=== PATIENT | female | born 1960 | race Caucasian/White ===

== ENCOUNTER → 2017-02-01 | Outpatient (CLI) | payer OTHER ==
[2017-02-01 17:46] LABS: ABSOLUTE BASOPHILS # (AUTO) 0.1 10^3/uL (0.0-0.2); ABSOLUTE EOSINOPHILS # (AUTO) 0.3 10^3/uL (0.0-0.6); ABSOLUTE LYMPHOCYTES (AUTO) 1.8 10^3/uL (0.5-4.7); ABSOLUTE MONOCYTES (AUTO) 0.8 10^3/uL (0.1-1.4); ABSOLUTE NEUT (AUTO) 6.4 10^3/uL (1.7-8.2); BASOPHILS % (AUTO) 0.6 % (0-2); EOSINOPHILS % (AUTO) 3.3 % (0-6); HEMATOCRIT 43.7 % (36.0-47.0); HEMOGLOBIN 14.9 g/dL (12.0-15.5); LYMPHOCYTES % (AUTO) 18.8 % (13-45); MEAN CORPUSCULAR HEMOGLOBIN 29.5 pg (27.0-33.4); MEAN CORPUSCULAR HGB CONC 34.1 g/dL (32.0-36.0); MEAN CORPUSCULAR VOLUME 87 fl (80-97); MONOCYTES % (AUTO) 8.9 % (3-13); RED BLOOD COUNT 5.05 10^6/uL (3.72-5.28); RED CELL DISTRIBUTION WIDTH 13.4 % (11.5-14.0); SEGMENTED NEUTROPHILS % (AUTO) 68.4 % (42-78); WHITE BLOOD COUNT 9.3 10^3/uL (4.0-10.5)
[2017-02-01 18:09] LABS: ALANINE AMINOTRANSFERASE 55 U/L (9-52); ALBUMIN 3.9 g/dL (3.5-5.0); ALKALINE PHOSPHATASE 73 U/L (38-126); ANION GAP 11 (5-19); ASPARTATE AMINO TRANSFERASE 36 U/L (14-36); BILIRUBIN,DIRECT 0.3 mg/dL (0.0-0.4); BILIRUBIN,TOTAL 0.6 mg/dL (0.2-1.3); BLOOD UREA NITROGEN 15 mg/dL (7-20); CALCIUM 9.5 mg/dL (8.4-10.2); CARBON DIOXIDE 28 mmol/L (22-30); CHLORIDE 100 mmol/L (98-107); CREATININE RESULT 0.76 mg/dL (0.52-1.25); GLUCOSE 103 mg/dL (75-110); POTASSIUM 4.5 mmol/L (3.6-5.0)
== END ==
LOC: OD 16:47
PROVIDERS: ATTEND Nurse Practitioner Acute Care
DX: R10.32 Left lower quadrant pain (principal)
CPT/HCPCS: 36415; 80053; 85025

== ENCOUNTER 2017-02-11 21:35 | Emergency (ER) | payer OTHER ==
[2017-02-12] MEDS ORDERED: ASPIRIN 81 MG TABLET, CHEWABLE PO ONE (01:14)
--- NOTE | 2017-02-12 01:27 | ER Document Report ---
ED Cardiac - General TRAVEL OUTSIDE OF THE [place] IN LAST 30 DAYS: No <AARON BOLTON - Last Filed: 02/12/17 07:45> <CAM FRASER - Last Filed: 02/12/17 08:16> - General Chief Complaint: Chest Pain Stated Complaint: CHEST PAIN Time Seen by Provider: 02/12/17 01:15 Notes: Patient is a 56-year-old female who comes emergency department for chief complaint of pain in her left neck, left upper back, left shoulder, and left chest for the past 2 days. She states the pain is sharp, intermittently worse, worse with movement. She denies injury. She states she has been taking ibuprofen with some relief but not resolution. She denies shortness of breath, nausea/vomiting, fever, cough. Past medical history of hypertension, hyperlipidemia, and she has family medical history of [place] with both parents. She had a stress test last year which she believes was negative. (AARON BOLTON) - Related Data Allergies/Adverse Reactions: Penicillins Allergy (Severe, Verified 02/12/17 01:30) hives, anaphylaxias promethazine HCl [From Phenergan] Allergy (Verified 02/12/17 01:30) tardive dyskensia prochlorperazine edisylate [From Compazine] Adverse Reaction (Intermediate, Verified 02/12/17 01:30) tardive dyskensia Past Medical History - General Information source: Patient - Social History Smoking Status: Never Smoker Frequency of alcohol use: None Drug Abuse: None Lives with: Spouse/Significant other Family History: Reviewed & Not Pertinent - Past Medical History Cardiac Medical History: Reports: Hx Coronary Artery Disease, Hx Hypercholesterolemia, Hx Hypertension Pulmonary Medical History: Denies: Hx Tuberculosis Neurological Medical History: Denies: Hx Seizures Renal/ Medical History: Reports: Hx Ovarian Cysts. Denies: Hx Peritoneal Dialysis GI Medical History: Reports: Hx Gastroesophageal Reflux Disease, Hx Irritable Bowel Musculoskeltal Medical History: Reports Hx Arthritis, Reports Hx Musculoskeletal Deformity Psychiatric Medical History: Reports: Hx Depression Traumatic Medical History: Reports: Hx Fractures Past Surgical History: Reports: Hx Appendectomy, Hx Section, Other - Incisional hernia repair with mesh 20 years ago. Denies: Hx Coronary Artery Bypass Graft, Hx Coronary Stent - Immunizations Immunizations up to date: Yes Hx Diphtheria, Pertussis, Tetanus Vaccination: Yes <AARON BOLTON Last Filed: 02/12/17 07:45> Review of Systems - Review of Systems Constitutional: No symptoms reported EENT: No symptoms reported Cardiovascular: See HPI Respiratory: No symptoms reported Gastrointestinal: No symptoms reported Genitourinary: No symptoms reported Female Genitourinary: No symptoms reported Musculoskeletal: See HPI Skin: No symptoms reported Hematologic/Lymphatic: No symptoms reported Neurological/Psychological: No symptoms reported <AARON BOLTON Last Filed: 02/12/17 07:45> Physical Exam - Vital signs Interpretation: Normal - General General appearance: Appears well In distress: None - HEENT Head: Normocephalic, Atraumatic Eyes: Normal Pupils: PERRL - Respiratory Respiratory status: No respiratory distress Chest status: Tender - some left pectoral tenderness with tenderness over the left axillary area extending up into the shoulder and also into the left upper back/neck area. Breath sounds: Normal. No: Decreased air movement, Wheezing Chest palpation: Normal - Cardiovascular Rhythm: Regular. No: Tachycardia Heart sounds: Normal auscultation, S1 appreciated, S2 appreciated Murmur: No - Abdominal Inspection: Normal Distension: No distension Bowel sounds: Normal Tenderness: Nontender. No: Tender, Guarding Organomegaly: No organomegaly - Back Back: No: Deformity/step-off, Vertebra tenderness - Extremities General upper extremity: Normal inspection, Nontender, Normal ROM, Normal strength General lower extremity: Normal inspection, Nontender, Normal ROM, Normal strength - Neurological Neuro grossly intact: Yes Cognition: Normal Orientation: AAOx4 [place] Coma Scale Eye Opening: Spontaneous [place] Coma Scale Verbal: Oriented [place] Coma Scale Motor: Obeys Commands [place] Coma Scale Total: 15 Speech: Normal Motor strength normal: LUE, RUE, LLE, RLE Sensory: Normal - Psychological Associated symptoms: Normal affect, Normal mood - Skin Skin Temperature: Warm Skin Moisture: Dry Skin Color: Normal <AARON BOLTON Last Filed: 02/12/17 07:45> Course - Laboratory Result Diagrams: 02/12/17 00:19 02/12/17 00:19 <AARON BOLTON Last Filed: 02/12/17 07:45> - Laboratory Result Diagrams: 02/12/17 00:19 02/12/17 00:19 <CAM FRASER - Last Filed: 02/12/17 08:16> - Re-evaluation Re-evalutation: 02/12/17 02:00 Stress test from last year with recommendations of low threshold for cardiac catheterization with close cardiac follow-up. Patient states that about 7:30 tonight pain came back and has become constant. Pain was intermittent until then. No shortness of breath. Patient is not tachycardic, no reported risk factors for PE. Improved with one SL nitroglycerine down to 1-2/5. Patient does have some musculoskeletal pain, but risk factors and symptoms are concerning. CBC unremarkable, chest x-ray unremarkable, EKG shows sinus rhythm with no T- wave inversions in consecutive leads, shows left axis deviation. CK is slightly elevated, troponin is significantly elevated at 1.26. Significantly above our cutoff level. Patient already given aspirin, giving Lovenox. Patient became nervous (shaky and tachycardic) after I informed her of her elevated troponin, given ativan, this worked quickly and she became calm and relaxed again. Discussed with Dr. Laboy. 02/12/17 02:40 Initially called [facility], no beds currently, called [facility], pending call back. Patient reporting chest pain again, given two more SL nitroglycerine. Pain resolved this time. 02/12/17 03:[address] Conroy, hospitalist, recommends I speak with Cardiology. Spoke with Michelle Norton PA-C, patient will be accepted to Cardiology, accepting is Dr. Causey. 02/12/17 05:14 Patient resting calmly, no chest pain, tachycardia and hypertension resolved. Pending transfer. 02/12/17 06:35 Patient having chest pain again, appears to be in pain, placing on nitroglycerin drip, giving morphine, giving metoprolol, will repeat EKG and update [facility]. Discussed with Dr. Fraser. 02/12/17 07:00 [facility] still has no beds, spoke with Alie Norton again and updated on status. Called [facility] to help patient get transferred faster. Patient states agreement with this. Patient now denies chest pain on nitroglycerin drip. 02/12/17 07:36 Patient is now confirmed for [facility] and is going to the lab[facility] or [facility] first. Called [facility] and cancelled transfer there. Patient happy with this. (AARON BOLTON) 02/12/17 08:15 Patient reevaluated is stable at this time pain-free (CAM FRASER) - Vital Signs Vital signs: Temp Pulse Resp BP Pulse Ox 98.9 F 99 26 H 160/105 H 100 02/12/17 07:16 02/11/17 22:06 02/12/17 07:21 02/12/17 07:21 02/12/17 07:21 - Laboratory Laboratory results interpreted by me: 02/12/17 02/12/17 00:19 00:19 AST 44 H ALT 54 H Creatine Kinase 139 H CK-MB (CK-2) 5.28 H Critical Care Note - Critical Care Note Total time excluding time spent on procedures (mins): 40 - chest pain, NSTEMI <AARON BOLTON - Last Filed: 02/12/17 07:45> <CAM FRASER - Last Filed: 02/12/17 08:16> - Critical Care Note Comments: Please allow 40 minutes of critical care time for evaluation and treatment of patient with an STEMI requiring anticoagulation with aspirin, Lovenox, treatment of pain using sublingual nitroglycerin, nitroglycerin drip, multiple re-evaluations, consultation and transfer to tertiary care center. (AARON BOLTON) Discharge <AARON BOLTON - Last Filed: 02/12/17 07:45> <CAM FRASER - Last Filed: 02/12/17 08:16> - Discharge Clinical Impression: NSTEMI (non-ST elevated myocardial infarction) Chest pain Qualifiers: Chest pain type: precordial chest pain Qualified Code(s): R07.2 - Precordial pain Condition: Stable Disposition: [facility]
[2017-02-12 01:35] LABS: ABSOLUTE EOSINOPHILS # (AUTO) 0.3 10^3/uL (0.0-0.6); ABSOLUTE LYMPHOCYTES (AUTO) 1.9 10^3/uL (0.5-4.7); ABSOLUTE MONOCYTES (AUTO) 0.7 10^3/uL (0.1-1.4); ABSOLUTE NEUT (AUTO) 5.1 10^3/uL (1.7-8.2); BASOPHILS % (AUTO) 0.3 % (0-2); EOSINOPHILS % (AUTO) 3.5 % (0-6); HEMATOCRIT 42.9 % (36.0-47.0); HGB HCT DIFFERENCE -0.9; LYMPHOCYTES % (AUTO) 23.5 % (13-45); MEAN CORPUSCULAR HGB CONC 32.7 g/dL (32.0-36.0); MEAN CORPUSCULAR VOLUME 89 fl (80-97); MONOCYTES % (AUTO) 8.9 % (3-13); RED BLOOD COUNT 4.85 10^6/uL (3.72-5.28); RED CELL DISTRIBUTION WIDTH 13.4 % (11.5-14.0); SEGMENTED NEUTROPHILS % (AUTO) 63.8 % (42-78)
[2017-02-12 01:48] LABS: ALANINE AMINOTRANSFERASE 54 U/L (9-52); ALBUMIN 3.8 g/dL (3.5-5.0); ALKALINE PHOSPHATASE 72 U/L (38-126); ANION GAP 10 (5-19); ASPARTATE AMINO TRANSFERASE 44 U/L (14-36); BILIRUBIN,DIRECT 0.3 mg/dL (0.0-0.4); BILIRUBIN,TOTAL 0.7 mg/dL (0.2-1.3); BLOOD UREA NITROGEN 13 mg/dL (7-20); CALCIUM 9.2 mg/dL (8.4-10.2); CARBON DIOXIDE 26 mmol/L (22-30); CHLORIDE 105 mmol/L (98-107); CREATINE KINASE 139 U/L (30-135); CREATININE RESULT 0.66 mg/dL (0.52-1.25); GLUCOSE 106 mg/dL (75-110); POTASSIUM 4.1 mmol/L (3.6-5.0); SODIUM 140.7 mmol/L (137-145)
--- NOTE | 2017-02-12 01:51 | RADIOLOGY REPORT (SQ) ---
EXAM DESCRIPTION: CHEST SINGLE VIEW COMPLETED DATE/TIME: 02/12/2017 1:34 am REASON FOR STUDY: CHEST COMPARISON: 02/02/2016. CT, 02/04/2016 EXAM PARAMETERS: NUMBER OF VIEWS: One view. TECHNIQUE: Single frontal radiographic view of the chest acquired. RADIATION DOSE: NA LIMITATIONS: None. FINDINGS: LUNGS AND PLEURA: No opacities, masses or pneumothorax. No pleural effusion. Mild interst itial markings. Moderate elevation of the right hemidiaphragm, stable. MEDIASTINUM AND HILAR STRUCTURES: No masses. Contour normal. HEART AND VASCULAR STRUCTURES: Heart normal in size. Normal vasculature. BONES: No acute findings. HARDWARE: None in the chest. OTHER: No other significant finding. IMPRESSION: No acute cardiopulmonary findings. TECHNICAL DOCUMENTATION: JOB ID: [id number]
[2017-02-12 01:54] LABS: CREATINE KINASE MB 5.28 ng/mL (<4.55)
[2017-02-12 01:58] LABS: TROPONIN I 1.24 ng/mL
[2017-02-12] MEDS ORDERED: ONDANSETRON HCL INJ/PF 4 MG/2 ML SDV ONE (02:07)
[2017-02-12] MEDS ORDERED: ONDANSETRON HCL INJ/PF 4 MG/2 ML SDV IV ONE ×2 (02:08→06:33)
[2017-02-12] MEDS: NITROGLYCERIN 0.4 MG/TAB 25 TAB/BOTTLE SL PRN ×3 (02:11→03:04)
[2017-02-12] MEDS ORDERED: ENOXAPARIN SODIUM INJ 120 MG/0.8 ML DISP.SYRIN SUBCUT SCH (02:15)
[2017-02-12] MEDS ORDERED: ENOXAPARIN SODIUM INJ 100 MG/1 ML DISP.SYRIN SUBCUT ONE (02:15)
[2017-02-12] MEDS ORDERED: ENOXAPARIN SODIUM INJ 30 MG/0.3 ML DISP.SYRIN SUBCUT ONE (02:15)
[2017-02-12] MEDS ORDERED: LORAZEPAM INJ 2 MG/1 ML VIAL IV ONE (02:18)
[2017-02-12 02:19] LABS: PROTHROMBIN TIME 12.9 SEC (11.4-15.4)
[2017-02-12 02:20] LABS: PARTIAL THROMBOPLASTIN TIME 25.7 SEC (23.5-35.8)
[2017-02-12] MEDS ORDERED: NITROGLYCERIN/D5W 250 ML IV PRN (06:31)
[2017-02-12] MEDS ORDERED: MORPHINE SULFATE 10 MG/ML INJ IV ONE (06:33)
[2017-02-12] MEDS ORDERED: METOPROLOL TARTRATE 25 MG TABLET PO ONE (06:45)
[2017-02-12 07:26] VITALS: BP 160/105
[2017-02-12] MEDS ORDERED: ENOXAPARIN SODIUM INJ 30 MG/0.3 ML DISP.SYRIN SUBCUT SCH (10:00)
[2017-02-12] MEDS ORDERED: ENOXAPARIN SODIUM INJ 100 MG/1 ML DISP.SYRIN SUBCUT SCH (10:00)
--- NOTE | 2017-02-12 10:22 | EKG REPORT ---
SEVERITY:- ABNORMAL ECG - SINUS RHYTHM LEFT VENTRICULAR HYPERTROPHY : Confirmed by: Nasreen Klein MD 12-Feb-2017 10:21:27
--- NOTE | 2017-02-12 10:22 | EKG REPORT ---
SEVERITY:- ABNORMAL ECG - SINUS TACHYCARDIA PROBABLE LEFT ATRIAL ABNORMALITY LEFT VENTRICULAR HYPERTROPHY : Confirmed by: Nasreen Klein MD 12-Feb-2017 10:21:24
== END 2017-02-12 08:20 | disposition short-term general hospital (02) ==
LOC: ER 21:35
DX: I21.4 Non-ST elevation (NSTEMI) myocardial infarction (principal); I10 Essential (primary) hypertension; I25.10 Atherosclerotic heart disease of native coronary artery without angina pectoris; M54.2 Cervicalgia; M54.89 Other dorsalgia; M25.512 Pain in left shoulder; R45.0 Nervousness; Z82.49 Family history of ischemic heart disease and other diseases of the circulatory system; Z88.0 Allergy status to penicillin; Z88.8 Allergy status to other drugs, medicaments and biological substances
CPT/HCPCS: 93005; 99291; 51701; 96365; 36415; 82553; 82550; 85025; 85610; 85730; 80053; 84484; 71010; 93010; J2270; J2060; J2405

== ENCOUNTER 2017-12-30 07:25 | Emergency (ER) | payer OTHER ==
[2017-12-30 07:58] LABS: APPEARANCE,URINE CLEAR; BILIRUBIN,URINE NEGATIVE (NEGATIVE); COLOR,URINE AMBER; GLUCOSE, URINE NEGATIVE (NEGATIVE); KETONES,URINE NEGATIVE (NEGATIVE); LEUKOCYTE ESTERASE,URINE LARGE (NEGATIVE); NITRITE,URINE POSITIVE (NEGATIVE); PROTEIN,URINE 30 mg/dL (NEGATIVE); URINE SPECIFIC GRAVITY 1.008
[2017-12-30] MEDS ORDERED: NORMAL SALINE 1000 ML 1,000 ML IV ONE (08:02)
--- NOTE | 2017-12-30 08:02 | ER Document Report ---
ED General - General Chief Complaint: Flank Pain Stated Complaint: LEFT SIDE FLANK PAIN Time Seen by Provider: 12/30/17 07:51 Notes: Patient is a 57-year-old female who presents emergency part with a chief complaint of left flank pain. Patient states that she took a bath on Sunday and morning she noted pyuria. She admits to worsening pyuria, frequency and urgency with associated nausea that has been worsening since . She denies any hematuria, fever, chills, vaginal pain or vaginal discharge. She denies any previous history of kidney stones. Primary care is with Dr. patel Past medical history significant for IBS, diverticulosis, inguinal hernia, coronary artery disease with previous SC in January 2017 on Brilinta with 2 coronary stents, hypertension, hyperlipidemia, diet-controlled diabetes, migraines, history of polynephritis as a teenager, history of low back pain. Patient in menopause Past surgical history significant for coronary cath in January 2017, appendectomy, 2 Social history: Denies any tobacco, alcohol or drug use. 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 TRAVEL OUTSIDE OF THE [place] IN LAST 30 DAYS: No - Related Data Allergies/Adverse Reactions: Penicillins Allergy (Severe, Verified 12/30/17 08:06) hives, anaphylaxias promethazine [From Phenergan] Allergy (Verified 12/30/17 08:06) promethazine HCl [From Phenergan] Allergy (Verified 12/30/17 08:06) tardive dyskensia tramadol Allergy (Verified 12/30/17 08:06) prochlorperazine edisylate [From Compazine] Adverse Reaction (Intermediate, Verified 12/30/17 08:06) tardive dyskensia Past Medical History - Social History Smoking Status: Never Smoker Family History: Reviewed & Not Pertinent - Past Medical History Cardiac Medical History: Reports: Hx Coronary Artery Disease, Hx Hypercholesterolemia, Hx Hypertension Pulmonary Medical History: Denies: Hx Tuberculosis Neurological Medical History: Denies: Hx Seizures Renal/ Medical History: Reports: Hx Ovarian Cysts. Denies: Hx Peritoneal Dialysis GI Medical History: Reports: Hx Gastroesophageal Reflux Disease, Hx Irritable Bowel Musculoskeltal Medical History: Reports Hx Arthritis, Reports Hx Musculoskeletal Deformity Psychiatric Medical History: Reports: Hx Depression Traumatic Medical History: Reports: Hx Fractures Past Surgical History: Reports: Hx Appendectomy, Hx Section, Hx Whipple - laparotomy, Other - Incisional hernia repair with mesh 20 years ago. Denies: Hx Coronary Artery Bypass Graft, Hx Coronary Stent - Immunizations Immunizations up to date: Yes Hx Diphtheria, Pertussis, Tetanus Vaccination: Yes Review of Systems - Review of Systems Constitutional: No symptoms reported Cardiovascular: No symptoms reported Respiratory: No symptoms reported Gastrointestinal: See HPI Genitourinary: See HPI Female Genitourinary: No symptoms reported Musculoskeletal: No symptoms reported -: Yes All other systems reviewed and negative Physical Exam - Vital signs Vitals: Temp Pulse Resp BP Pulse Ox 98.0 F 93 22 H 160/54 H 99 12/30/17 07:36 12/30/17 07:36 12/30/17 07:36 12/30/17 07:36 12/30/17 07:36 - Notes Notes: PHYSICAL EXAM GENERAL: Alert, interacts well. HEAD: Normocephalic, atraumatic. EYES: Pupils equal, round, and reactive to light. Extraocular movements intact. ENT: Oral mucosa moist, tongue midline. NECK: Full range of motion. Supple. Trachea midline. LUNGS: Clear to auscultation bilaterally, no wheezes, rales, or rhonchi. No respiratory distress. HEART: Regular rate and rhythm. No murmurs, gallops, or rubs. ABDOMEN: Soft, nondistended, suprapubic tenderness no guarding, rebound, or rigidity.. Bowel sounds present in all 4 quadrants. Back: Positive CVA tenderness on the left. Negative on the right. No superficial muscle tenderness to palpation. EXTREMITIES: Moves all 4 extremities spontaneously. No edema, radial and dorsalis pedis pulses 2/4 bilaterally. No cyanosis. NEUROLOGICAL: Alert and oriented x4. Normal speech. PSYCH: Normal affect, normal mood. SKIN: Warm, dry, normal turgor. No rashes or lesions noted. Course - Re-evaluation Re-evalutation: 12/30/17 09:28 Patient is a 57-year-old female is hemodynamically stable, no acute distress afebrile. CBC without significant leukocytosis, anemia. No evidence of acute renal failure. Patient clinically presents with pyelonephritis. Patient is afebrile. Will treat with antibiotics. Patient to follow-up with primary care. 12/30/17 10:25 Patient states she feels much better after IV pain medication. Will discharge home with strict return precautions. - Vital Signs Vital signs: Temp Pulse Resp BP Pulse Ox 98.0 F 93 22 H 160/54 H 99 12/30/17 07:36 12/30/17 07:36 12/30/17 07:36 12/30/17 07:36 12/30/17 07:36 - Laboratory Result Diagrams: 12/30/17 08:28 12/30/17 08:28 Laboratory results interpreted by me: 12/30/17 12/30/17 12/30/17 07:34 08:28 08:28 WBC 10.6 H Seg Neutrophils % 80.0 H Lymphocytes % 11.4 L Absolute Neutrophils 8.5 H Glucose 130 H Urine Protein 30 H Urine Blood LARGE H Urine Nitrite POSITIVE H Urine Urobilinogen 4.0 H Ur Leukocyte Esterase LARGE H Discharge - Discharge Clinical Impression: Pyelonephritis Condition: Good Disposition: HOME, SELF-CARE Additional Instructions: PYELONEPHRITIS: Your evaluation shows evidence of pyelonephritis. This is an infection in the kidney. Typical symptoms are fever, pain in the flank, pain on urination, and frequent urination. Many cases of pyelonephritis can be treated at home. Hospital care may be necessary for patients who are very ill, or elderly or . Pyelonephritis is treated with antibiotics. Be sure to take all the medication as prescribed. Drink plenty of liquids (about three quarts per day) . You may take acetaminophen for fever. You should feel significantly improved within two days. You should have a recheck of your urine in about one week to insure that the infection is gone. Return for a re-examination if your symptoms worsen in any way -- such as high fever, shaking chills, severe weakness or dizziness, severe pain, or inability to pass your urine. TORADOL INJECTION: You have been given an injection of ketorolac tromethamine (Toradol). This is an excellent, safe drug for pain control. It also has potent antiinflammatory action. You should have significant pain relief within about one hour. Toradol is not addicting and is non-sedating. It does not interfere with driving or work. Call or return if you develop itching, hives, shortness of breath, or rash. ANTIBIOTIC THERAPY: You have been given an antibiotic prescription. It's important that you take all the medication, unless instructed otherwise by your physician. Failure to complete the entire course can result in relapse of your condition. Common side effects of antibiotics include nausea, intestinal cramping, or diarrhea. Women may develop vaginal yeast infections, and babies can get yeast (thrush) in the mouth following the use of antibiotics. Contact your physician if you develop significant side effects from this medication. Allergy to this antibiotic can result in hives, wheezing, faintness, or itching. If symptoms of allergy occur, stop the medication and call the doctor. LEVOFLOXACIN: You have been given an antibacterial agent, levofloxacin (Levaquin). This medicine is not related to the penicillins, sulfas, cephalosporins, or tetracyclines. It is often given to patients who are allergic to these drugs. It has been chosen for you either because other drugs are not appropriate, or because of the nature of your problem. Levaquin should not be taken with antacids, as these can decrease its effectiveness. It can be taken without regard to meals. LEVAQUIN SHOULD NOT BE TAKEN BY CHILDREN, NURSING WOMEN, OR WOMEN. Although Levaquin is usually well-tolerated, common side effects can include nausea and diarrhea. Contact your doctor if you experience any unusual symptoms while on this medication, such as joint pain or swelling, shortness of breath, wheezing, faintness, or hives. USE OF ACETAMINOPHEN (Tylenol): Acetaminophen may be taken for pain relief or fever control. It's much safer than aspirin, offering a wider range of "safe" dosages. It is safe during . Some brand names are Tylenol, Panadol, Datril, Anacin 3, Tempra, and Liquiprin. Acetaminophen can be repeated every four hours. The following are maximum recommended dosages: >89 pounds or adults 650 mg to 900 mg Acetaminophen can be repeated every four hours. Maximum dose not to exceed 4000 mg a day. ORAL NARCOTIC MEDICATION: You have been given a prescription for pain control. This medication is a narcotic. It's best taken with food, as nausea can result if taken on an empty stomach. Don't operate machinery or drive within six hours of taking this medication. Do not combine this medicine with alcohol, or with any medication which can cause sedation (such as cold tablets or sleeping pills) unless you get permission from the physician. Narcotics tend to cause constipation. If possible, drink plenty of fluids and eat a diet high in fiber and fruits. Please be aware that prescription narcotics also have the potential for abuse. People become addicted to these medications because of the general sense of wellbeing that they induce. This feeling along with a significant reduction in tension, anxiety, and aggression provides a stimulating seductive quality to these drugs. Once your pain is under control, we encourage you to discard your unused narcotics. FOLLOW-UP CARE: If you have been referred to a physician for follow-up care, call the physician s office for an appointment as you were instructed or within the next two days. If you experience worsening or a significant change in your symptoms, notify the physician immediately or return to the Emergency Department at any time for re-evaluation. Prescriptions: Levofloxacin 750 mg PO DAILY #5 tablet Forms: Return to Work, Elevated Blood Pressure Referrals: JALEN APARICIO MD [Primary Care Provider] - Follow up in 1 week
[2017-12-30] MEDS ORDERED: LEVOFLOXACIN 750 MG/D5W RTU 750 MG/150 ML RTUPB IV ONE (08:03)
[2017-12-30 08:46] LABS: ABSOLUTE EOSINOPHILS # (AUTO) 0.2 10^3/uL (0.0-0.6); ABSOLUTE LYMPHOCYTES (AUTO) 1.2 10^3/uL (0.5-4.7); ABSOLUTE MONOCYTES (AUTO) 0.7 10^3/uL (0.1-1.4); ABSOLUTE NEUT (AUTO) 8.5 10^3/uL (1.7-8.2); BASOPHILS % (AUTO) 0.4 % (0-2); EOSINOPHILS % (AUTO) 1.4 % (0-6); HEMATOCRIT 40.6 % (36.0-47.0); HEMOGLOBIN 13.8 g/dL (12.0-15.5); LYMPHOCYTES % (AUTO) 11.4 % (13-45); MEAN CORPUSCULAR HEMOGLOBIN 29.7 pg (27.0-33.4); MEAN CORPUSCULAR VOLUME 87 fl (80-97); MONOCYTES % (AUTO) 6.8 % (3-13); PLATELET COUNT 210 10^3/uL (150-450); RED BLOOD COUNT 4.65 10^6/uL (3.72-5.28); RED CELL DISTRIBUTION WIDTH 13.6 % (11.5-14.0); TOTAL CELLS COUNTED % (AUTO) 100 %; WHITE BLOOD COUNT 10.6 10^3/uL (4.0-10.5)
[2017-12-30 09:03] LABS: ALANINE AMINOTRANSFERASE 40 U/L (9-52); ALBUMIN 3.9 g/dL (3.5-5.0); ALKALINE PHOSPHATASE 71 U/L (38-126); ANION GAP 11 (5-19); ASPARTATE AMINO TRANSFERASE 25 U/L (14-36); BILIRUBIN,DIRECT 0.1 mg/dL (0.0-0.4); BILIRUBIN,TOTAL 0.7 mg/dL (0.2-1.3); BLOOD UREA NITROGEN 12 mg/dL (7-20); CALCIUM 9.5 mg/dL (8.4-10.2); CARBON DIOXIDE 27 mmol/L (22-30); CHLORIDE 105 mmol/L (98-107); GLUCOSE 130 mg/dL (75-110); POTASSIUM 4.1 mmol/L (3.6-5.0); SODIUM 142.6 mmol/L (137-145); TOTAL PROTEIN 6.7 g/dL (6.3-8.2)
[2017-12-30] MEDS ORDERED: KETOROLAC TROMETHAMINE INJ/PF 30 MG/1 ML SDV IV ONE (09:28)
[2017-12-30] MEDS ORDERED: HYDROCODONE/ACETAMINOPHEN 5-325 MG (6 TAB/ER DISP) PO PRN (10:26)
[2017-12-30 10:35] VITALS: BP 153/90
== END 2017-12-30 10:44 | disposition home or self-care (01) ==
LOC: ER 07:25
DX: N10 Acute pyelonephritis (principal); R10.9 Unspecified abdominal pain; E78.00 Pure hypercholesterolemia, unspecified; I25.10 Atherosclerotic heart disease of native coronary artery without angina pectoris; I10 Essential (primary) hypertension; Z88.0 Allergy status to penicillin; Z88.6 Allergy status to analgesic agent
CPT/HCPCS: 99284; 96375; 96365; 36415; 87086; 85025; 87088; 80053; 81001; 87186; J1885; J7030; J1956

== ENCOUNTER 2018-04-18 00:46 | Observation (INO) | payer OTHER ==
[2018-04-18] MEDS ORDERED: ASPIRIN 81 MG TABLET, CHEWABLE PO ONE (00:47)
[2018-04-18 01:09] LABS: ABSOLUTE EOSINOPHILS # (AUTO) 0.2 10^3/uL (0.0-0.6); ABSOLUTE LYMPHOCYTES (AUTO) 2.4 10^3/uL (0.5-4.7); ABSOLUTE MONOCYTES (AUTO) 0.7 10^3/uL (0.1-1.4); ABSOLUTE NEUT (AUTO) 4.9 10^3/uL (1.7-8.2); BASOPHILS % (AUTO) 0.4 % (0-2); EOSINOPHILS % (AUTO) 2.7 % (0-6); HEMATOCRIT 41.6 % (36.0-47.0); HEMOGLOBIN 14.5 g/dL (12.0-15.5); MEAN CORPUSCULAR HEMOGLOBIN 30.2 pg (27.0-33.4); MEAN CORPUSCULAR HGB CONC 34.9 g/dL (32.0-36.0); MEAN CORPUSCULAR VOLUME 87 fl (80-97); MONOCYTES % (AUTO) 9.1 % (3-13); PLATELET COUNT 237 10^3/uL (150-450); RED BLOOD COUNT 4.81 10^6/uL (3.72-5.28); RED CELL DISTRIBUTION WIDTH 13.8 % (11.5-14.0); SEGMENTED NEUTROPHILS % (AUTO) 58.8 % (42-78); TOTAL CELLS COUNTED % (AUTO) 100 %; WHITE BLOOD COUNT 8.2 10^3/uL (4.0-10.5)
[2018-04-18] MEDS ORDERED: NITROGLYCERIN 0.4 MG/TAB 25 TAB/BOTTLE SL PRN ×2 (01:13→04:55)
[2018-04-18] MEDS ORDERED: MORPHINE SULFATE 10 MG/ML INJ IV ONE ×2 (01:13→03:26)
[2018-04-18] MEDS ORDERED: ONDANSETRON HCL INJ/PF 4 MG/2 ML SDV IV ONE ×2 (01:20→03:32)
--- NOTE | 2018-04-18 01:21 | ER Document Report ---
ED General - General Chief Complaint: Chest Pain Stated Complaint: CHEST PAIN Time Seen by Provider: 04/18/18 01:12 Notes: 57-year-old female patient to the emergency department in severe pain. States she developed severe left lower abdominal pain. Has a history of hernia. Is trying to get it taken care of at the ID. Has history of heart problems as well. States the pain is radiating from her lower abdomen up into her chest. Hurts to move or turn over. Patient is very angry and frustrated due to her pain. Security had to be called initially before I arrived in the room because she was cussing out the nursing staff. Arrival to the room I informed her that the nonsense had to stop that I was here to help and she properly complied with the request and was no further problem. TRAVEL OUTSIDE OF THE [place] IN LAST 30 DAYS: No - HPI Onset: Just prior to arrival Onset/Duration: Gradual, Worse Quality of pain: Throbbing Severity: Severe Pain Level: 5 Associated symptoms: Nausea, Vomiting Exacerbated by: Movement - Related Data Allergies/Adverse Reactions: Penicillins Allergy (Severe, Verified 04/18/18 01:39) hives, anaphylaxias promethazine [From Phenergan] Allergy (Verified 04/18/18 01:39) promethazine HCl [From Phenergan] Allergy (Verified 04/18/18 01:39) tardive dyskensia tramadol Allergy (Verified 04/18/18 01:39) prochlorperazine edisylate [From Compazine] Adverse Reaction (Intermediate, Verified 04/18/18 01:39) tardive dyskensia IV dye Allergy (Uncoded 04/18/18 01:39) Past Medical History - General Information source: Patient - Social History Smoking Status: Smoker,Current Status Unk Frequency of alcohol use: None Drug Abuse: None Lives with: Family Family History: Reviewed & Not Pertinent Patient has suicidal ideation: No Patient has homicidal ideation: No - Past Medical History Cardiac Medical History: Reports: Hx Coronary Artery Disease, Hx Heart Attack, Hx Hypercholesterolemia, Hx Hypertension Pulmonary Medical History: Denies: Hx Tuberculosis Neurological Medical History: Denies: Hx Seizures Endocrine Medical History: Reports: Hx Diabetes Mellitus Type 2 - diet controlled Renal/ Medical History: Reports: Hx Ovarian Cysts. Denies: Hx Peritoneal Dialysis GI Medical History: Reports: Hx Gastroesophageal Reflux Disease, Hx Irritable Bowel Musculoskeletal Medical History: Reports Hx Arthritis, Reports Hx Musculoskeletal Deformity Psychiatric Medical History: Reports: Hx Depression Traumatic Medical History: Reports: Hx Fractures Past Surgical History: Reports: Hx Appendectomy, Hx Cardiac Catheterization - stent x2, Hx Section, Hx Whipple - laparotomy, Other - Incisional hernia repair with mesh 20 years ago. Denies: Hx Coronary Artery Bypass Graft, Hx Coronary Stent - Immunizations Immunizations up to date: Yes Hx Diphtheria, Pertussis, Tetanus Vaccination: Yes Review of Systems - Review of Systems Notes: Constitutional: denies: Chills, Diaphoresis, Fever, Malaise, Weakness EENT: denies: Eye discharge, Blurred vision, Tearing, Double vision, Nose congestion, Nose discharge, Throat swelling, Mouth pain Cardiovascular: denies: Palpitations, Heart racing, Orthopnea, Dyspnea,. Does complain of chest pain Respiratory: denies: Cough, Hurts to breathe, Wheezing, Shortness of breath Gastrointestinal: Complaining of severe abdominal pain left lower quadrant. History of hernia. History of nausea and vomiting. Genitourinary: denies: Burning, Dysuria, Discharge, Frequency, Flank pain, Hematuria patient does state that the pain was so severe that she urinated on herself. Musculoskeletal: denies: Joint pain, Joint swelling, Muscle pain, Muscle stiffness, back pain Hematologic/Lymphatic: denies: Anemia, Easy bleeding, Easy bruising, Blood clots Neurological/Psychological: denies: Confusion, Dementia, Depression, Loss of consciousness Skin: No lesions, no masses, no skin breakdown, no abscesses Physical Exam - Vital signs Vitals: Temp Pulse Ox 98.5 F 99 04/18/18 00:50 04/18/18 00:50 Interpretation: Normal - General General appearance: Alert, Anxious In distress: Moderate - HEENT Head: Normocephalic, Atraumatic Eyes: Normal Pupils: PERRL - Respiratory Respiratory status: No respiratory distress Chest status: Nontender Breath sounds: Normal Chest palpation: Normal - Cardiovascular Rhythm: Regular Heart sounds: Normal auscultation Murmur: No - Abdominal Inspection: Normal Distension: No distension Bowel sounds: Normal Tenderness: Tender, Guarding, Rebound, Other - Severe tenderness left lower quadrant. Appears to have incarcerated mass in the left lower quadrant. Organomegaly: No organomegaly - Back Back: Normal, Nontender - Extremities General upper extremity: Normal inspection, Nontender, Normal color, Normal ROM , Normal temperature General lower extremity: Normal inspection, Nontender, Normal color, Normal ROM , Normal temperature, Normal weight bearing. No: Patito's sign - Neurological Neuro grossly intact: Yes Cognition: Normal Orientation: AAOx4 [place] Coma Scale Eye Opening: Spontaneous [place] Coma Scale Verbal: Oriented [place] Coma Scale Motor: Obeys Commands [place] Coma Scale Total: 15 Speech: Normal Motor strength normal: LUE, RUE, LLE, RLE Sensory: Normal - Psychological Associated symptoms: Normal affect, Normal mood - Skin Skin Temperature: Warm Skin Moisture: Dry Skin Color: Normal Course - Re-evaluation Re-evalutation: 04/18/18 01:27 Concerning this for incarcerated and strangulate hernia. Pain medication has been ordered. Will start with x-ray order CT scan anticipate consulting with surgery. I can barely touch patient without her screaming. 04/18/18 03:18 CT scan had to be performed without oral or IV contrast as patient states she is allergic to IV contrast. CT concerning for acute bowel obstruction from large hernia in the left lower quadrant. Will consult with surgery. 04/18/18 04:52 Dr. Bryant will admit at this time for observation. Resting much more comfortably at this time. 04/18/18 04:52 Acute Abdomen Series 04/18/18 01:19 IMPRESSION: No acute pulmonary process. Nonobstructive bowel gas pattern. 2010 [employer] [employer] [facility] [employer]- All Rights Reserved Abdomen/Pelvis CT 04/18/18 02:19 IMPRESSION: 1. Findings compatible with acute mechanical small bowel obstruction. The transition point is within the large left hernia. These findings are compatible with an incarcerated hernia. 2. Diverticulosis without evidence of acute diverticulitis. 3. Hepatic steatosis. This exam was performed according to our departmental dose-optimization program, which includes automated exposure control, adjustment of the mA and/or kV according to patient size and/or use of iterative reconstruction technique. - Vital Signs Vital signs: Temp Pulse Resp BP Pulse Ox 98.5 F 12 183/102 H 98 04/18/18 00:50 04/18/18 04:14 04/18/18 03:01 04/18/18 04:14 - Laboratory Result Diagrams: 04/18/18 00:23 04/18/18 00:23 Laboratory results interpreted by me: 04/18/18 04/18/18 04/18/18 00:23 00:23 04:05 APTT 20.5 L Glucose 135 H Urine Ascorbic Acid 20 H - EKG Interpretation by Me EKG shows normal: Sinus rhythm, [place], Intervals, QRS Complexes, ST-T Waves Discharge - Discharge Clinical Impression: Incarcerated hernia of abdominal cavity, Partial small bowel obstruction Condition: Good Disposition: HOME, SELF-CARE Admitting Provider: Surgicalist - Dr. Bryant Unit Admitted: Surgical Floor Referrals: JALEN APARICIO MD [NO LOCAL MD] - Follow up as needed
[2018-04-18 01:28] LABS: ALANINE AMINOTRANSFERASE 42 U/L (9-52); ALBUMIN 4.1 g/dL (3.5-5.0); ALKALINE PHOSPHATASE 70 U/L (38-126); ANION GAP 13 (5-19); ASPARTATE AMINO TRANSFERASE 30 U/L (14-36); BILIRUBIN,DIRECT 0.3 mg/dL (0.0-0.4); BILIRUBIN,TOTAL 0.6 mg/dL (0.2-1.3); BLOOD UREA NITROGEN 17 mg/dL (7-20); CALCIUM 9.7 mg/dL (8.4-10.2); CARBON DIOXIDE 25 mmol/L (22-30); CHLORIDE 104 mmol/L (98-107); CREATINE KINASE 81 U/L (30-135); GLUCOSE 135 mg/dL (75-110); POTASSIUM 4.4 mmol/L (3.6-5.0); TOTAL PROTEIN 7.4 g/dL (6.3-8.2)
[2018-04-18 01:35] LABS: PARTIAL THROMBOPLASTIN TIME 20.5 SEC (23.5-35.8); PROTHROMBIN TIME 12.6 SEC (11.4-15.4)
[2018-04-18 01:40] LABS: CREATINE KINASE MB 0.46 ng/mL (<4.55)
[2018-04-18 01:43] LABS: TROPONIN I < 0.012 ng/mL
--- NOTE | 2018-04-18 02:28 | RADIOLOGY REPORT (SQ) ---
EXAM DESCRIPTION: Acute abdominal series COMPLETED DATE/TME: 04/18/2018 01:19 CLINICAL HISTORY: 57 years, Female, abd pain COMPARISON: 02/12/2017 FINDINGS: Single view of the chest with upright and supine views of the abdomen. Atherosclerotic calcification of the thoracic aorta. Heart is not enlarged. Elevation of the right hemidiaphragm. Leads overlie the chest. No consolidation, pneumothorax, or pleural effusion. No free intraperitoneal air. No dilated loops of large or small bowel. Minimal degenerative change of the spine. No acute osseous abnormalities. No definite abnormal calcifications. No definite organomegaly. IMPRESSION: No acute pulmonary process. Nonobstructive bowel gas pattern. 2010 [employer] [facility] [employer]- All Rights Reserved
--- NOTE | 2018-04-18 03:15 | RADIOLOGY REPORT (SQ) ---
EXAM DESCRIPTION: CT ABDOMEN PELVIS WITHOUT IV CONTRAST COMPLETED DATE/TME: 04/18/2018 02:19 CLINICAL HISTORY: Left abdominal pain in the region of left ventral hernia. COMPARISON: 08/16/2016 TECHNIQUE: CT of the abdomen and pelvis without IV contrast. Evaluation of the solid organs and vasculature is suboptimal due to lack of IV contrast. DLP: 1539.26 mGy-cm FINDINGS: Lung Bases: Solid 0.4 cm pulmonary nodule in the left lung base is stable compared with previous imaging from 08/16/2016 Bones: No destructive bone lesions identified. Abdomen: Liver: The liver has normal size and decreased density. Gallbladder: No calcified gallstones. Spleen, Pancreas, and Adrenal Glands: The spleen, pancreas, and adrenal glands are unremarkable. Kidneys: The kidneys have normal size and contour without evidence of hydronephrosis. No obstructing ureteral calculi. Vasculature: The aorta and IVC have normal caliber and position. Stomach: The stomach and duodenum have normal course. Other: No free intraperitoneal air. No free fluid or lymphadenopathy. Pelvis: Bladder: Urinary bladder is unremarkable. Bowel: There is a large left ventral hernia containing loops of small bowel. There is a dilated loop of small bowel within the hernia with transition to decompressed loops of bowel distally. The hernia neck measures 4.7 cm in transverse dimension and 4.8 cm in craniocaudal dimension. Mild mesenteric inflammatory change within the hernia sac. Scattered diverticula of the colon without evidence of acute diverticulitis. Appendix: The appendix is not identified. Pelvis: Uterus is not enlarged IMPRESSION: 1. Findings compatible with acute mechanical small bowel obstruction. The transition point is within the large left hernia. These findings are compatible with an incarcerated hernia. 2. Diverticulosis without evidence of acute diverticulitis. 3. Hepatic steatosis. This exam was performed according to our departmental dose-optimization program, which includes automated exposure control, adjustment of the mA and/or kV according to patient size and/or use of iterative reconstruction technique.
[2018-04-18] MEDS ORDERED: RINGERS SOLUTION,LACTATED 1,000 ML IV ONE (03:32)
[2018-04-18 04:30] LABS: APPEARANCE,URINE CLEAR; BILIRUBIN,URINE NEGATIVE (NEGATIVE); COLOR,URINE YELLOW; GLUCOSE, URINE NEGATIVE (NEGATIVE); KETONES,URINE NEGATIVE (NEGATIVE); LEUKOCYTE ESTERASE,URINE NEGATIVE (NEGATIVE); NITRITE,URINE NEGATIVE (NEGATIVE); PROTEIN,URINE NEGATIVE (NEGATIVE); URINE SPECIFIC GRAVITY 1.019; UROBILINOGEN,URINE NEGATIVE mg/dL (<2.0)
[2018-04-18] MEDS ORDERED: MORPHINE SULFATE 10 MG/ML INJ IV PRN (04:49)
[2018-04-18] MEDS ORDERED: ONDANSETRON HCL INJ/PF 4 MG/2 ML SDV IV PRN (04:49)
--- NOTE | 2018-04-18 04:49 | PDOC H&P ---
History of Present Illness Patient complains of: abdominal pain, nausea, vomiting, chest pain History of Present Illness: LESLEY MARIE is a 57 year old female with a one day h/o suprapubic abdominal pain, nausea, vomiting, and chest pain. The pt has a h/o a ventral, incisional hernia that is long-standing. She has refused repair in the past. She has coronary artery disease, and has a h/o [place] over one year ago. The pt is on Brilinta. she reports that she has a BM every day, and passed gas several hours ago. She did have an episode of vomiting earlier today, but that it has passed. Pain medications make her pain better, palpation makes it worse. She denies melena, hematochezia, hematemesis, fevers, chills. She does report abdominal pain and chest pain. Past Medical History Cardiac Medical History: Reports: Coronary Artery Disease, Myocardial Infarction , Hyperlipidema, Hypertension Pulmonary Medical History: Denies: Tuberculosis Neurological Medical History: Denies: Seizures Endocrine Medical History: Reports: Diabetes Mellitus Type 2 - diet controlled GI Medical History: Reports: Gastroesophageal Reflux Disease Musculoskeltal Medical History: Reports: Arthritis Psychiatric Medical History: Reports: Depression Past Surgical History Past Surgical History: Reports: Appendectomy, Cardiac Catheterization - stent x2 , Section, Other - Incisional hernia repair with mesh 20 years ago Denies: Coronary Artery Bypass Graft, Coronary Stent Social History Lives with: Family Smoking Status: Smoker,Current Status Unk Frequency of Alcohol Use: None Hx Recreational Drug Use: No Drugs: None Hx Prescription Drug Abuse: No Family History Family History: Reviewed & Not Pertinent Parental Family History Reviewed: Yes Children Family History Reviewed: Yes Sibling(s) Family History Reviewed.: Yes Medication/Allergy Home Medications: Nitroglycerin [Nitrostat 0.4 mg (1/150 Gr) Tabs 25/Bottle] 1 tab SL Q5MP PRN # 25 tab.subl 02/04/16 Metoprolol Tartrate [Lopressor 100 mg Tablet] 100 mg PO DAILY 08/16/16 Levofloxacin 750 mg PO DAILY #5 tablet 12/30/17 Allergies/Adverse Reactions: Penicillins Allergy (Severe, Verified 04/18/18 01:39) hives, anaphylaxias promethazine [From Phenergan] Allergy (Verified 04/18/18 01:39) promethazine HCl [From Phenergan] Allergy (Verified 04/18/18 01:39) tardive dyskensia tramadol Allergy (Verified 04/18/18 01:39) prochlorperazine edisylate [From Compazine] Adverse Reaction (Intermediate, Verified 04/18/18 01:39) tardive dyskensia IV dye Allergy (Uncoded 04/18/18 01:39) Review of Systems Constitutional: ABSENT: chills, fatigue, fever(s), headache(s) Eyes: ABSENT: visual disturbances Ears: ABSENT: hearing changes Nose, Mouth, and Throat: ABSENT: sore throat Cardiovascular: PRESENT: chest pain Respiratory: ABSENT: dyspnea Gastrointestinal: PRESENT: abdominal pain, bloating, constipation, diarrhea Genitourinary: ABSENT: dysuria Musculoskeletal: ABSENT: back pain Integumentary: ABSENT: pruritus, rash Neurological: ABSENT: abnormal gait, confusion, convulsions, dizziness, memory loss Psychiatric: ABSENT: anxiety, depression Endocrine: ABSENT: cold intolerance, heat intolerance Hematologic/Lymphatic: PRESENT: easy bruising Physical Exam Vital Signs: Temp Pulse Resp BP Pulse Ox 98.5 F 12 183/102 H 98 04/18/18 00:50 04/18/18 04:14 04/18/18 03:01 04/18/18 04:14 Intake & Output 04/16/18 04/17/18 04/18/18 06:59 06:59 06:59 Weight 127.006 kg General appearance: PRESENT: no acute distress, morbidly obese Head exam: PRESENT: atraumatic, normocephalic Eye exam: PRESENT: EOMI, PERRLA. ABSENT: scleral icterus Mouth exam: PRESENT: moist, neck supple Teeth exam: ABSENT: poor dentation Neck exam: ABSENT: lymphadenopathy, meningismus, tenderness, thyromegaly, tracheal deviation Respiratory exam: PRESENT: unlabored. ABSENT: chest wall tenderness, tachypnea , wheezes Cardiovascular exam: PRESENT: RRR Pulses: PRESENT: normal radial pulses Vascular exam: PRESENT: normal capillary refill. ABSENT: pallor GI/Abdominal exam: PRESENT: soft, tenderness - left lower quadrant. ABSENT: distended, guarding, rebound, rigid Rectal exam: PRESENT: deferred Extremities exam: ABSENT: clubbing Musculoskeletal exam: ABSENT: deformity Neurological exam: PRESENT: alert, awake, oriented to person, oriented to place , oriented to time, oriented to situation. ABSENT: CN II-XII grossly intact Psychiatric exam: ABSENT: agitated, anxious, depressed Focused psych exam: ABSENT: delusional Skin exam: ABSENT: cyanosis, erythema, jaundice Results Laboratory Results: 04/18/18 00:23 04/18/18 00:23 04/18/18 04/18/18 04/18/18 00:23 00:23 00:23 WBC 8.2 RBC 4.81 Hgb 14.5 Hct 41.6 MCV 87 MCH 30.2 MCHC 34.9 RDW 13.8 Plt Count 237 Seg Neutrophils % 58.8 Lymphocytes % 29.0 Monocytes % 9.1 Eosinophils % 2.7 Basophils % 0.4 Absolute Neutrophils 4.9 Absolute Lymphocytes 2.4 Absolute Monocytes 0.7 Absolute Eosinophils 0.2 Absolute Basophils 0.0 Sodium 142.0 Potassium 4.4 Chloride 104 Carbon Dioxide 25 Anion Gap 13 BUN 17 Creatinine 0.67 Est GFR ( Amer) > 60 Est GFR (Non-Af Amer) > 60 Glucose 135 H Calcium 9.7 Total Bilirubin 0.6 AST 30 ALT 42 Alkaline Phosphatase 70 Total Protein 7.4 Albumin 4.1 Lipase 113.8 04/18/18 04/18/18 00:23 00:23 Creatine Kinase 81 CK-MB (CK-2) 0.46 Troponin I < 0.012 Impressions: Acute Abdomen Series 04/18/18 01:19 IMPRESSION: No acute pulmonary process. Nonobstructive bowel gas pattern. 2010 [email or web address]- All Rights Reserved Abdomen/Pelvis CT 04/18/18 02:19 IMPRESSION: 1. Findings compatible with acute mechanical small bowel obstruction. The transition point is within the large left hernia. These findings are compatible with an incarcerated hernia. 2. Diverticulosis without evidence of acute diverticulitis. 3. Hepatic steatosis. This exam was performed according to our departmental dose-optimization program, which includes automated exposure control, adjustment of the mA and/or kV according to patient size and/or use of iterative reconstruction technique. Assessment & Plan - Diagnosis (1) Incarcerated incisional hernia Is this a current diagnosis for this admission?: Yes (2) Chest pain Qualifiers: Chest pain type: other chest pain Qualified Code(s): R07.89 - Other chest pain; R07.8 - Other chest pain Is this a current diagnosis for this admission?: Yes - Plan Summary Plan Summary: 57 y/o F with a longstanding ventral hernia, abdominal pain, nausea, and chest pain. The pt has a CT scan that I have reviewed. Her hernia does not look significantly different from [address] There is no pneumatosis, bowel wall thickening, free fluid, or free air. The pt does not have an acute abdomen on exam. The pt is not experiencing nausea now. Her pain is much improved from earlier today. I have presented the pt with several options. The pt wishes to avoid surgery if possible. I will admit the pt to the hospital for observation. I will have cardiology evaluate the pt to ensure that her pain and nausea are not cardiac in nature. Plan for serial abdominal exams and close followup. The pt may require surgery if she develops signs of a mechanical bowel obstruction.
[2018-04-18] MEDS: DEXTROSE 5%-LACTATED RINGERS 1,000 ML IV PRN ×2 (05:04→16:43)
--- NOTE | 2018-04-18 09:30 | PDOC PROGRESS REPORT ---
Subjective Progress Note for:: 04/18/18 Subjective:: Feels better. Abdomen still not back to baseline however. Her pain has improved she has no nausea and vomiting. Reason For Visit: ABDOMINAL PAIN AND CHEST PAIN Physical Exam Vital Signs: Temp Pulse Resp BP Pulse Ox 98.3 F 88 16 137/73 H 97 04/18/18 08:01 04/18/18 08:01 04/18/18 08:01 04/18/18 08:01 04/18/18 08:01 Intake & Output 04/17/18 04/18/18 04/19/18 06:59 06:59 06:59 Weight 124.9 kg General appearance: PRESENT: no acute distress, cooperative Respiratory exam: PRESENT: clear to auscultation tyler Cardiovascular exam: PRESENT: RRR GI/Abdominal exam: PRESENT: other - Soft, nondistended although difficult to tell with her body habitus, palpable herniation at her left lower abdomen that is not reducible with very mild tenderness. Soft in this region. Psychiatric exam: PRESENT: appropriate affect Results Impressions: Acute Abdomen Series 04/18/18 01:19 IMPRESSION: No acute pulmonary process. Nonobstructive bowel gas pattern. 2011 [employer]- All Rights Reserved Abdomen/Pelvis CT 04/18/18 02:19 IMPRESSION: 1. Findings compatible with acute mechanical small bowel obstruction. The transition point is within the large left hernia. These findings are compatible with an incarcerated hernia. 2. Diverticulosis without evidence of acute diverticulitis. 3. Hepatic steatosis. This exam was performed according to our departmental dose-optimization program, which includes automated exposure control, adjustment of the mA and/or kV according to patient size and/or use of iterative reconstruction technique. Assessment & Plan - Diagnosis (1) Incarcerated incisional hernia Is this a current diagnosis for this admission?: Yes Plan: Chronically incarcerated incisional hernia. In reviewing her CT scan, I do not think she has an acute bowel obstruction. She would benefit from an incisional hernia repair at some point but I do not think she needs an urgent operation at this time. Repair in this setting would carry high risk for recurrence. Will repeat her abdominal x-rays. Observe her through today. If she has continued improvement will start a diet tomorrow with possible discharge with referral to hernia specialist.
[2018-04-18] MEDS ORDERED: METOPROLOL TARTRATE 100 MG TABLET PO SCH (10:00)
--- NOTE | 2018-04-18 11:29 | RADIOLOGY REPORT (SQ) ---
EXAM DESCRIPTION: ABDOMEN 2 VIEWS COMPLETED DATE/TIME: 04/18/2018 11:14 am REASON FOR STUDY: abdominal pain COMPARISON: Abdominal CT scan dated 04/18/2018 NUMBER OF VIEWS: Two views. TECHNIQUE: Supine and erect/decubitus radiographic images of the abdomen acquired. LIMITATIONS: None. FINDINGS: FREE AIR: None. No abnormal gas collections. LUNG BASES: Clear. BOWEL GAS PATTERN: There is gaseous distention of a couple small bowel loops projected in the left lo wer quadrant laterally which correlates with the dilated bowel loops identified within a hernia sac i n the left lower quadrant laterally on the abdominal CT scan. Otherwise a nonspecific intestinal bow el gas pattern is identified. CALCIFICATIONS: No suspicious calcifications. SOFT TISSUES: No gross mass or suggestion of organomegaly. HARDWARE: None in the abdomen. BONES: No acute fracture. No worrisome bone lesions. OTHER: No other significant finding. IMPRESSION: Gaseous distension of a couple small bowel loops in the left lower quadrant laterally as noted above consistent with a small bowel obstruction within a hernia sac in the left lower quadrant laterally identified on the abdominal CT scan. Other findings as noted above TECHNICAL DOCUMENTATION: JOB ID: [id number] [employer]- All Rights Reserved Reading location - IP/workstation name: [email or web address]
[2018-04-18] MEDS ORDERED: ACETAMINOPHEN 325 MG TABLET ONE (13:43)
[2018-04-18] MEDS: ACETAMINOPHEN 325 MG TABLET PO PRN ×2 (13:44→21:31)
--- NOTE | 2018-04-18 17:00 | PDOC PROGRESS REPORT ---
Subjective Progress Note for:: 04/18/18 Subjective:: Some lower abdominal pain not much change from this morning. No nausea and no vomiting. Passed a little bit of gas just now. Reason For Visit: ABDOMINAL PAIN AND CHEST PAIN Physical Exam Vital Signs: Temp Pulse Resp BP Pulse Ox 97.4 F 90 20 112/65 98 04/18/18 15:57 04/18/18 15:57 04/18/18 15:57 04/18/18 15:57 04/18/18 15:57 Intake & Output 04/17/18 04/18/18 04/19/18 06:59 06:59 06:59 Intake Total 1000 Balance 1000 Weight 124.9 kg General appearance: PRESENT: no acute distress, cooperative Cardiovascular exam: PRESENT: RRR GI/Abdominal exam: PRESENT: other - Soft, palpable herniation in the left lower abdomen nonreducible with some tenderness but no peritoneal signs. No erythema. Results Laboratory Results: 04/18/18 11:46 Troponin I < 0.012 Impressions: Abdomen X-Ray 04/18/18 00:00 IMPRESSION: Gaseous distension of a couple small bowel loops in the left lower quadrant laterally as noted above consistent with a small bowel obstruction within a hernia sac in the left lower quadrant laterally identified on the abdominal CT scan. Other findings as noted above Acute Abdomen Series 04/18/18 01:19 IMPRESSION: No acute pulmonary process. Nonobstructive bowel gas pattern. 2011 [employer]- All Rights Reserved Abdomen/Pelvis CT 04/18/18 02:19 IMPRESSION: 1. Findings compatible with acute mechanical small bowel obstruction. The transition point is within the large left hernia. These findings are compatible with an incarcerated hernia. 2. Diverticulosis without evidence of acute diverticulitis. 3. Hepatic steatosis. This exam was performed according to our departmental dose-optimization program, which includes automated exposure control, adjustment of the mA and/or kV according to patient size and/or use of iterative reconstruction technique. Assessment & Plan - Diagnosis (1) Incarcerated incisional hernia Is this a current diagnosis for this admission?: Yes Plan: Chronically incarcerated incisional hernia. Abdominal x-rays demonstrate dilated loop of bowel in the herniated region but no dilation proximal to the hernia. Patient does not appear toxic, she does not have tachycardia, she has no nausea, tenderness and pain stable from this morning. I have discussed with the patient the option of going ahead with an operation versus continued observation. She understands the risk and benefits of both options including risk of bowel strangulation with observation. Patient really prefers not to undergo an operation at this time unless absolutely necessary and wants to continue observation. Furthermore patient is pending further cardiac evaluation tomorrow. We will repeat x-rays and labs in the morning. If she has clinical deterioration in the meantime, will take her urgently to the operating room.
[2018-04-18] MEDS: CARVEDILOL 12.5 MG TABLET PO SCH (21:33)
[2018-04-18] MEDS: ATORVASTATIN CALCIUM 80 MG TABLET PO SCH (21:34)
[2018-04-19] MEDS: DEXTROSE 5%-LACTATED RINGERS 1,000 ML IV PRN (01:37)
[2018-04-19] MEDS: ACETAMINOPHEN 325 MG TABLET PO PRN ×2 (03:19→17:03)
[2018-04-19] MEDS: LANSOPRAZOLE 30 MG TAB.RAP.DR PO SCH (05:03)
[2018-04-19 07:10] LABS: ALANINE AMINOTRANSFERASE 36 U/L (9-52); ALBUMIN 3.2 g/dL (3.5-5.0); ALKALINE PHOSPHATASE 53 U/L (38-126); ANION GAP 11 (5-19); ASPARTATE AMINO TRANSFERASE 22 U/L (14-36); BILIRUBIN,DIRECT 0.2 mg/dL (0.0-0.4); BILIRUBIN,TOTAL 0.5 mg/dL (0.2-1.3); BLOOD UREA NITROGEN 9 mg/dL (7-20); CALCIUM 8.6 mg/dL (8.4-10.2); CARBON DIOXIDE 26 mmol/L (22-30); CHLORIDE 103 mmol/L (98-107); GLUCOSE 129 mg/dL (75-110); SODIUM 139.8 mmol/L (137-145)
[2018-04-19 08:15] LABS: ABSOLUTE EOSINOPHILS # (AUTO) 0.2 10^3/uL (0.0-0.6); ABSOLUTE LYMPHOCYTES (AUTO) 1.3 10^3/uL (0.5-4.7); ABSOLUTE MONOCYTES (AUTO) 0.6 10^3/uL (0.1-1.4); ABSOLUTE NEUT (AUTO) 5.1 10^3/uL (1.7-8.2); BASOPHILS % (AUTO) 0.2 % (0-2); EOSINOPHILS % (AUTO) 2.7 % (0-6); HEMATOCRIT 36.5 % (36.0-47.0); LYMPHOCYTES % (AUTO) 17.5 % (13-45); MEAN CORPUSCULAR HEMOGLOBIN 30.1 pg (27.0-33.4); MEAN CORPUSCULAR HGB CONC 34.1 g/dL (32.0-36.0); MEAN CORPUSCULAR VOLUME 88 fl (80-97); MONOCYTES % (AUTO) 8.2 % (3-13); PLATELET COUNT 182 10^3/uL (150-450); RED BLOOD COUNT 4.13 10^6/uL (3.72-5.28); RED CELL DISTRIBUTION WIDTH 13.2 % (11.5-14.0); SEGMENTED NEUTROPHILS % (AUTO) 71.4 % (42-78); TOTAL CELLS COUNTED % (AUTO) 100 %; WHITE BLOOD COUNT 7.2 10^3/uL (4.0-10.5)
[2018-04-19 08:28] LABS: HEMOGLOBIN 12.4 g/dL (12.0-15.5)
--- NOTE | 2018-04-19 09:02 | EKG REPORT ---
SEVERITY:- ABNORMAL ECG - SINUS RHYTHM BORDERLINE R WAVE PROGRESSION, ANTERIOR LEADS : Confirmed by: Opal Stark 19-Apr-2018 09:00:51
--- NOTE | 2018-04-19 09:19 | PDOC PROGRESS REPORT ---
Subjective Progress Note for:: 04/19/18 Subjective:: States she feels better, needs to have a bowel movement Reason For Visit: ABDOMINAL PAIN AND CHEST PAIN Physical Exam Vital Signs: Temp Pulse Resp BP Pulse Ox 97.8 F 73 17 132/57 H 97 04/19/18 07:31 04/19/18 07:31 04/19/18 07:31 04/19/18 07:31 04/19/18 07:31 Intake & Output 04/18/18 04/19/18 04/20/18 06:59 06:59 06:59 Intake Total 1999 Balance 1999 Weight 124.9 kg 128 kg General appearance: PRESENT: no acute distress GI/Abdominal exam: PRESENT: other - Chronically incarcerated left lower quadrant large abdominal wall hernia; no peritoneal signs. Results Laboratory Results: 04/19/18 06:08 04/19/18 06:08 04/19/18 04/19/18 06:08 06:08 WBC 7.2 RBC 4.13 Hgb 12.4 D Hct 36.5 MCV 88 MCH 30.1 MCHC 34.1 RDW 13.2 Plt Count 182 Seg Neutrophils % 71.4 Lymphocytes % 17.5 Monocytes % 8.2 Eosinophils % 2.7 Basophils % 0.2 Absolute Neutrophils 5.1 Absolute Lymphocytes 1.3 Absolute Monocytes 0.6 Absolute Eosinophils 0.2 Absolute Basophils 0.0 Sodium 139.8 Potassium 4.0 Chloride 103 Carbon Dioxide 26 Anion Gap 11 BUN 9 Creatinine 0.54 Est GFR ( Amer) > 60 Est GFR (Non-Af Amer) > 60 Glucose 129 H Calcium 8.6 Total Bilirubin 0.5 AST 22 ALT 36 Alkaline Phosphatase 53 Total Protein 6.0 L Albumin 3.2 L 04/18/18 04/18/18 11:46 17:17 Troponin I < 0.012 < 0.012 Impressions: Acute Abdomen Series 04/18/18 01:19 IMPRESSION: No acute pulmonary process. Nonobstructive bowel gas pattern. 2010 [employer]- All Rights Reserved Abdomen/Pelvis CT 04/18/18 02:19 IMPRESSION: 1. Findings compatible with acute mechanical small bowel obstruction. The transition point is within the large left hernia. These findings are compatible with an incarcerated hernia. 2. Diverticulosis without evidence of acute diverticulitis. 3. Hepatic steatosis. This exam was performed according to our departmental dose-optimization program, which includes automated exposure control, adjustment of the mA and/or kV according to patient size and/or use of iterative reconstruction technique. Assessment & Plan - Diagnosis (1) Incarcerated hernia of abdominal cavity Is this a current diagnosis for this admission?: Yes Plan: Impression chronically incarcerated midline abdominal wall hernia, previously repaired 20 years ago with mesh, now feeling better; no evidence of obstruction threatened bowel etc. Recommendations: 1. Patient is seen Dr. Bryant in the past; he recommended she lose weight and she is interested in doing that for undergoing operative repair. There is no indication for immediate surgical intervention now. 2. DC narcotics; start diet; stool softener 3. Anticipate discharge home later today.
[2018-04-19] MEDS ORDERED: (PENDING PHARMACY ID) (Gabapentin Enacarbil [Horizant] 600 MG) PO SCH (10:00)
[2018-04-19] MEDS ORDERED: (PENDING PHARMACY ID) (Losartan/Hydrochlorothiazide [Hyzaar 50-12.5 Tablet] 1 TAB) PO SCH (10:00)
[2018-04-19] MEDS ORDERED: REGADENOSON INJ 0.4 MG/5 ML DISP.SYRIN IV ONE (10:10)
[2018-04-19] MEDS ORDERED: CAFFEINE CITRATED INJ/PF 60 MG/3 ML SDV ONE (10:10)
--- NOTE | 2018-04-19 11:02 | RADIOLOGY REPORT (SQ) ---
EXAM DESCRIPTION: ABDOMEN 2 VIEWS COMPLETED DATE/TIME: 04/19/2018 9:07 am REASON FOR STUDY: Incarcerated hernia COMPARISON: None. NUMBER OF VIEWS: Two views. TECHNIQUE: Supine and erect/decubitus radiographic images of the abdomen acquired. LIMITATIONS: None. FINDINGS: FREE AIR: None. No abnormal gas collections. LUNG BASES: Clear. BOWEL GAS PATTERN: Nonobstructive pattern. No dilated loops or air fluid levels. CALCIFICATIONS: No suspicious calcifications. SOFT TISSUES: No gross mass or suggestion of organomegaly. HARDWARE: None in the abdomen. BONES: No acute fracture. No worrisome bone lesions. OTHER: No other significant finding. IMPRESSION: NO RADIOGRAPHIC EVIDENCE FOR ACUTE ABDOMINAL DISEASE. TECHNICAL DOCUMENTATION: JOB ID: [id number] [employer]- All Rights Reserved Reading location - IP/workstation name: [email or web address]
--- NOTE | 2018-04-19 12:22 | PDOC PROGRESS REPORT ---
Subjective Progress Note for:: 04/19/18 Subjective:: Patient seen during nuclear stress test performance and before it was performed. We underwent risk benefits of nuclear stress test. Patient does give history of coronary artery disease with prior stent placement. While having stress test patient did develop some chest pain and transient EKG changes but those could be rate related. Patient also seen afterwards in the evening when stress test results were discussed. Reason For Visit: ABDOMINAL PAIN AND CHEST PAIN Physical Exam Vital Signs: Temp Pulse Resp BP Pulse Ox 97.8 F 73 17 132/57 H 97 04/19/18 07:31 04/19/18 07:31 04/19/18 07:31 04/19/18 07:31 04/19/18 07:31 Intake & Output 04/18/18 04/19/18 04/20/18 06:59 06:59 06:59 Intake Total 1999 Balance 1999 Weight 124.9 kg 128 kg Exam: GENERAL: well-nourished and in no acute distress. Alert and oriented x3 HEAD: Atraumatic, normocephalic. EYES: Pupils equal round and reactive to light, extraocular movements intact, sclera anicteric, conjunctiva are normal. ENT: TMs normal, nares patent, oropharynx clear without exudates. Moist mucous membranes. No oral ulcerations or bleeding gums noted NECK: supple without lymphadenopathy. Trachea is central. No cervical or axillary lymphadenopathy noted. Carotids are 2+, JVD WNL LUNGS: Respiration seems nonlabored, no significant accessory muscle action noted. Breath sounds clear to auscultation bilaterally and equal noted. No wheezes rales or rhonchi noted. No significant dullness noted on percussion. CHEST: Palpation of the chest wall shows no significant chest wall tenderness. 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 ABDOMEN: Soft, no significant tenderness appreciated, normoactive bowel sounds. No guarding, no rebound. No rigidity noted . No masses appreciated. EXTREMITIES: Pedal pulses are 1-2+, no calf tenderness noted. No clubbing or cyanosis. negative pedal edema noted NEUROLOGICAL: Focused neurological exam showed no significant neurologic deficit. Normal speech, no focal weakness appreciated. PSYCH: Normal mood, normal affect. Judgment and insight within normal limits. SKIN: No significant ecchymosis, skin is noted to be warm. MUSCULOSKELETAL EXAM: No significant acute joint swelling noted. Results Laboratory Results: 04/19/18 06:08 04/19/18 06:08 04/19/18 04/19/18 06:08 06:08 WBC 7.2 RBC 4.13 Hgb 12.4 D Hct 36.5 MCV 88 MCH 30.1 MCHC 34.1 RDW 13.2 Plt Count 182 Seg Neutrophils % 71.4 Lymphocytes % 17.5 Monocytes % 8.2 Eosinophils % 2.7 Basophils % 0.2 Absolute Neutrophils 5.1 Absolute Lymphocytes 1.3 Absolute Monocytes 0.6 Absolute Eosinophils 0.2 Absolute Basophils 0.0 Sodium 139.8 Potassium 4.0 Chloride 103 Carbon Dioxide 26 Anion Gap 11 BUN 9 Creatinine 0.54 Est GFR ( Amer) > 60 Est GFR (Non-Af Amer) > 60 Glucose 129 H Calcium 8.6 Total Bilirubin 0.5 AST 22 ALT 36 Alkaline Phosphatase 53 Total Protein 6.0 L Albumin 3.2 L 04/18/18 04/18/18 11:46 17:17 Troponin I < 0.012 < 0.012 Impressions: Acute Abdomen Series 04/18/18 01:19 IMPRESSION: No acute pulmonary process. Nonobstructive bowel gas pattern. 2011 [employer]- All Rights Reserved Abdomen/Pelvis CT 04/18/18 02:19 IMPRESSION: 1. Findings compatible with acute mechanical small bowel obstruction. The transition point is within the large left hernia. These findings are compatible with an incarcerated hernia. 2. Diverticulosis without evidence of acute diverticulitis. 3. Hepatic steatosis. This exam was performed according to our departmental dose-optimization program, which includes automated exposure control, adjustment of the mA and/or kV according to patient size and/or use of iterative reconstruction technique. Abdomen X-Ray 04/19/18 07:00 IMPRESSION: NO RADIOGRAPHIC EVIDENCE FOR ACUTE ABDOMINAL DISEASE. Assessment & Plan - Diagnosis (1) Chest pain Qualifiers: Chest pain type: other chest pain Qualified Code(s): R07.89 - Other chest pain; R07.8 - Other chest pain Is this a current diagnosis for this admission?: Yes (2) Coronary artery disease Qualifiers: Coronary Disease-Associated Artery/Lesion type: [place] artery [place] vs. transplanted heart: [place] heart Associated angina: angina presence unspecified Qualified Code(s): I25.10 - Atherosclerotic heart disease of [place] coronary artery without angina pectoris Is this a current diagnosis for this admission?: Yes (3) HTN (hypertension) Qualifiers: Hypertension type: essential hypertension Qualified Code(s): I10 - Essential (primary) hypertension Is this a current diagnosis for this admission?: Yes (4) Hyperlipemia Qualifiers: Hyperlipidemia type: unspecified Qualified Code(s): E78.5 - Hyperlipidemia , unspecified Is this a current diagnosis for this admission?: Yes (5) Obesity Is this a current diagnosis for this admission?: Yes (6) Sleep disorder Is this a current diagnosis for this admission?: Yes - Notes Notes: Chest pain: [place] to be mostly from coronary artery disease. Nuclear stress test did show a small area of mild inferolateral ischemia in the distal inferolateral wall. SDS score was only 2. Of more concern was increased pulmonary uptake. However EKG gated imaging showed normal LVEF and also no transient ischemic dilatation noted. Have ordered a BNP level to make sure that increased lung uptake is not related to CHF. It may be worthwhile to consider a CTA of the chest to rule out any intrinsic pulmonary disease. At this point will optimize medical management. Have placed patient on Ranexa 500 mg p.o. twice daily. If patient continues to have chest pain in spite of maximal medical management then patient would end up needing heart catheterization. Coronary artery disease: Recommend high potency statin, antiplatelet, preferably dual, beta-blockers, OLIVIA inhibitor/ARB therapy. Hypertension: Blood pressure goal should be 135/85 or less. Currently under reasonable control. Dyslipidemia: LDL goal should be less than 70. Obesity: Patient has been advised in gradual weight loss. Sleep disorder: Patient describes symptoms of underlying sleep apnea. She however never been tested. Discussed benefit of treatment of sleep apnea in reducing cardiovascular event risk. - Time Time with patient: Greater than 35 minutes - More than 50% of the time spent coordinating care, discussing management plans with involved caregivers. Management plans discussed with involved personnels. Medical decision making was of moderate to high complexity, patient's has multiple comorbidities. Medications reviewed and adjusted accordingly: Yes
[2018-04-19] MEDS: DOCUSATE SODIUM 100 MG CAPSULE PO SCH ×2 (12:39→17:03)
[2018-04-19] MEDS: HYDROCHLOROTHIAZIDE 12.5 MG TABLET PO SCH (12:39)
[2018-04-19] MEDS: CARVEDILOL 12.5 MG TABLET PO SCH ×2 (12:39→22:53)
[2018-04-19] MEDS: LOSARTAN POTASSIUM 50 MG TABLET PO SCH (12:40)
[2018-04-19] MEDS: FLUOXETINE HCL 20 MG CAPSULE PO SCH (12:40)
[2018-04-19 14:33] LABS: ANION GAP 9 (5-19); BLOOD UREA NITROGEN 8 mg/dL (7-20); CALCIUM 8.8 mg/dL (8.4-10.2); CARBON DIOXIDE 28 mmol/L (22-30); CHLORIDE 104 mmol/L (98-107); GLUCOSE 150 mg/dL (75-110); POTASSIUM 3.9 mmol/L (3.6-5.0); SODIUM 140.9 mmol/L (137-145)
[2018-04-19] MEDS: RANOLAZINE 500 MG TAB.SR.12H PO SCH (17:03)
[2018-04-19] MEDS: ATORVASTATIN CALCIUM 80 MG TABLET PO SCH (22:53)
[2018-04-20] MEDS: LANSOPRAZOLE 30 MG TAB.RAP.DR PO SCH (05:39)
--- NOTE | 2018-04-20 09:29 | EKG REPORT ---
SEVERITY:- ABNORMAL ECG - SINUS RHYTHM NON PROGRESSION OF R WAVE ANT CHEST LEADS : Confirmed by: Opal Stark 20-Apr-2018 09:28:10
[2018-04-20] MEDS: HYDROCHLOROTHIAZIDE 12.5 MG TABLET PO SCH (09:56)
[2018-04-20] MEDS: LOSARTAN POTASSIUM 50 MG TABLET PO SCH (09:57)
[2018-04-20] MEDS: FLUOXETINE HCL 20 MG CAPSULE PO SCH (09:57)
[2018-04-20] MEDS: RANOLAZINE 500 MG TAB.SR.12H PO SCH (09:57)
[2018-04-20] MEDS: CARVEDILOL 12.5 MG TABLET PO SCH (09:57)
[2018-04-20] MEDS: DOCUSATE SODIUM 100 MG CAPSULE PO SCH (09:57)
--- NOTE | 2018-04-20 13:55 | PDOC PROGRESS REPORT ---
Subjective Progress Note for:: 04/20/18 Subjective:: no c/o, BM today, tolerating po well Reason For Visit: ABDOMINAL PAIN AND CHEST PAIN Physical Exam Vital Signs: Temp Pulse Resp BP Pulse Ox 98.8 F 87 16 106/55 L 99 04/20/18 12:00 04/20/18 12:00 04/20/18 12:00 04/20/18 12:00 04/20/18 12:00 Intake & Output 04/19/18 04/20/18 04/21/18 06:59 06:59 06:59 Intake Total 1999 265 Balance 1999 2655 Weight 128 kg 129.8 kg General appearance: PRESENT: no acute distress Respiratory exam: PRESENT: clear to auscultation [place] Cardiovascular exam: PRESENT: RRR GI/Abdominal exam: PRESENT: soft, tenderness - at left lateral abdominal wall hernia site Results Laboratory Results: 04/19/18 06:08 04/19/18 14:04 04/19/18 14:04 Sodium 140.9 Potassium 3.9 Chloride 104 Carbon Dioxide 28 Anion Gap 9 BUN 8 Creatinine 0.57 Est GFR ( Amer) > 60 Est GFR (Non-Af Amer) > 60 Glucose 150 H Calcium 8.8 04/18/18 04/18/18 04/19/18 11:46 17:17 14:04 Troponin I < 0.012 < 0.012 NT-Pro-B Natriuret Pep 539 Impressions: Acute Abdomen Series 04/18/18 01:19 IMPRESSION: No acute pulmonary process. Nonobstructive bowel gas pattern. 2010 [employer]- All Rights Reserved Abdomen/Pelvis CT 04/18/18 02:19 IMPRESSION: 1. Findings compatible with acute mechanical small bowel obstruction. The transition point is within the large left hernia. These findings are compatible with an incarcerated hernia. 2. Diverticulosis without evidence of acute diverticulitis. 3. Hepatic steatosis. This exam was performed according to our departmental dose-optimization program, which includes automated exposure control, adjustment of the mA and/or kV according to patient size and/or use of iterative reconstruction technique. Abdomen X-Ray 04/19/18 07:00 IMPRESSION: NO RADIOGRAPHIC EVIDENCE FOR ACUTE ABDOMINAL DISEASE. Assessment & Plan - Diagnosis (1) Incarcerated hernia of abdominal cavity Is this a current diagnosis for this admission?: Yes - Plan Summary Plan Summary: A/ large incarcerated LLQ abdominal wall hernia Patient bowel function present (BM today) No acute General Surgery findings P/ home today liquid or semiliquid diet avoid vegetable fibers Miralax or Colace as needed OTC for constipation F/u with Dr. Bryant in 2 weeks I recommend a diet of about 1,000 calorie count daily
--- NOTE | 2018-04-20 15:28 | PDOC PROGRESS REPORT ---
Subjective Progress Note for:: 04/20/18 Subjective:: Patient claims that she has ambulated inside the room and also in the hallway without complications. Patient describes history of irritable bowel syndrome. Patient seems to be doing better with gradual improvement. Pt is denying any chest arm or neck discomfort. Patient denying any PND, orthopnea. Patient denied any sustained palpitations, dizziness, syncope, near syncope. Patient denying any fever chills. Patient denying any other significant discomfort. Patient is maintaining sinus rhythm. Review of systems: Rest review of systems negative. Medications: Medications have been reviewed. Reason For Visit: ABDOMINAL PAIN AND CHEST PAIN Physical Exam Vital Signs: Temp Pulse Resp BP Pulse Ox 98.8 F 87 16 106/55 L 99 04/20/18 12:00 04/20/18 12:00 04/20/18 12:00 04/20/18 12:00 04/20/18 12:00 Intake & Output 04/19/18 04/20/18 04/21/18 06:59 06:59 06:59 Intake Total 1999 2656 Balance 1999 2656 Weight 128 kg 129.8 kg Exam: GENERAL: well-nourished and in no acute distress. Alert and oriented x3 HEAD: Atraumatic, normocephalic. EYES: Pupils equal round and reactive to light, extraocular movements intact, sclera anicteric, conjunctiva are normal. ENT: TMs normal, nares patent, oropharynx clear without exudates. Moist mucous membranes. No oral ulcerations or bleeding gums noted NECK: supple without lymphadenopathy. Trachea is central. No cervical or axillary lymphadenopathy noted. Carotids are 2+, JVD WNL LUNGS: Respiration seems nonlabored, no significant accessory muscle action noted. Breath sounds clear to auscultation bilaterally and equal noted. No wheezes rales or rhonchi noted. No significant dullness noted on percussion. CHEST: Palpation of the chest wall shows no significant chest wall tenderness. 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 ABDOMEN: Soft, no significant tenderness appreciated, normoactive bowel sounds. No guarding, no rebound. No rigidity noted . No masses appreciated. Abdominal wall hernia noted. EXTREMITIES: Pedal pulses are 1-2+, no calf tenderness noted. No clubbing or cyanosis. negative pedal edema noted NEUROLOGICAL: Focused neurological exam showed no significant neurologic deficit. Normal speech, no focal weakness appreciated. PSYCH: Normal mood, normal affect. Judgment and insight within normal limits. SKIN: No significant ecchymosis, skin is noted to be warm. MUSCULOSKELETAL EXAM: No significant acute joint swelling noted. Results Laboratory Results: 04/19/18 06:08 04/19/18 14:04 04/18/18 04/18/18 04/19/18 11:46 17:17 14:04 Troponin I < 0.012 < 0.012 NT-Pro-B Natriuret Pep 539 EKG Comments: Shows sinus rhythm without any sustained tachycardia or bradycardia. Impressions: Acute Abdomen Series 04/18/18 01:19 IMPRESSION: No acute pulmonary process. Nonobstructive bowel gas pattern. 2011 [employer]- All Rights Reserved Abdomen/Pelvis CT 04/18/18 02:19 IMPRESSION: 1. Findings compatible with acute mechanical small bowel obstruction. The transition point is within the large left hernia. These findings are compatible with an incarcerated hernia. 2. Diverticulosis without evidence of acute diverticulitis. 3. Hepatic steatosis. This exam was performed according to our departmental dose-optimization program, which includes automated exposure control, adjustment of the mA and/or kV according to patient size and/or use of iterative reconstruction technique. Abdomen X-Ray 04/19/18 07:00 IMPRESSION: NO RADIOGRAPHIC EVIDENCE FOR ACUTE ABDOMINAL DISEASE. Assessment & Plan - Diagnosis (1) Chest pain Qualifiers: Chest pain type: other chest pain Qualified Code(s): R07.89 - Other chest pain; R07.8 - Other chest pain Is this a current diagnosis for this admission?: Yes (2) Coronary artery disease Qualifiers: Coronary Disease-Associated Artery/Lesion type: [place] artery [place] vs. transplanted heart: [place] heart Associated angina: angina presence unspecified Qualified Code(s): I25.10 - Atherosclerotic heart disease of [place] coronary artery without angina pectoris Is this a current diagnosis for this admission?: Yes (3) HTN (hypertension) Qualifiers: Hypertension type: essential hypertension Qualified Code(s): I10 - Essential (primary) hypertension Is this a current diagnosis for this admission?: Yes (4) Hyperlipemia Qualifiers: Hyperlipidemia type: unspecified Qualified Code(s): E78.5 - Hyperlipidemia , unspecified Is this a current diagnosis for this admission?: Yes (5) Obesity Is this a current diagnosis for this admission?: Yes (6) Sleep disorder Is this a current diagnosis for this admission?: Yes - Notes Notes: Patient has done well from cardiac point of view. Nuclear stress test had shown just small area of mild ischemia, SDS score was 2 therefore not significant. At this point medical management is being recommended with further evaluation if patient has recurrent chest pain. Patient would need close cardiology follow-up and I would be happy to provide that. In addition patient will benefit from aggressive weight loss, treatment of underlying sleep apnea etc. as patient may have this condition. Patient noted to be reasonably stable from cardiac standpoint. As noted before may consider a CTA of the chest this has not been performed recently. Chest pain: [place] to be mostly from coronary artery disease. Nuclear stress test did show a small area of mild inferolateral ischemia in the distal inferolateral wall. SDS score was only 2. Of more concern was increased pulmonary uptake. However EKG gated imaging showed normal LVEF and also no transient ischemic dilatation noted. Have ordered a BNP level to make sure that increased lung uptake is not related to CHF. It may be worthwhile to consider a CTA of the chest to rule out any intrinsic pulmonary disease. At this point will optimize medical management. Have placed patient on Ranexa 500 mg p.o. twice daily. If patient continues to have chest pain in spite of maximal medical management then patient would end up needing heart catheterization. Coronary artery disease: Recommend high potency statin, antiplatelet, preferably dual, beta-blockers, OLIVIA inhibitor/ARB therapy. Hypertension: Blood pressure goal should be 135/85 or less. Currently under reasonable control. Dyslipidemia: LDL goal should be less than 70. Obesity: Patient has been advised in gradual weight loss. Sleep disorder: Patient describes symptoms of underlying sleep apnea. She however never been tested. Discussed benefit of treatment of sleep apnea in reducing cardiovascular event risk. - Time Time with patient: Greater than 35 minutes - CODE STATUS was discussed, patient remains full code. Surrogate decision-maker unchanged. Multiple medical problems were addressed. More than 50% of the time spent coordinating care, discussing management plans with involved caregivers. Management plans discussed with involved personnels. Medical decision making was of moderate to high complexity, patient's has multiple comorbidities. Medications reviewed and adjusted accordingly: Yes
[2018-04-20 15:35] VITALS: BP 154/81
--- NOTE | 2018-04-21 03:41 | DISCHARGE SUMMARY E ---
Discharge Summary NAME: LESLEY MARIE : 1960 AGE: 57Y ADMITTED: 04/18/2018 DISCHARGED: 04/20/2018 FINAL DIAGNOSIS: Incarcerated left lateral quadrant abdominal wall ventral hernia. PROCEDURE: None. OTHER DIAGNOSES: 1. Coronary artery disease. 2. Morbid obesity. 3. History of myocardial infarction. 4. Hyperlipidemia. 5. Hypertension. COMPLICATIONS: None. HOSPITAL COURSE: Morbidly obese 57-year-old female with a history of incarcerated, painful left lateral quadrant abdominal wall ventral hernia. The patient was admitted for pain control. She was then evaluated and found not to be needing an emergent surgery. She was also previously evaluated by Dr. Bryant in the office, who is willing to perform her ventral hernia repair electively. During the hospitalization the patient's diet was advanced to a full liquid diet, which was well tolerated. Bowel function returned with stools on the day of discharge. On physical exam, there is slight tenderness in the left lateral quadrant abdominal wall ventral hernia. DISCHARGE ORDERS: The patient was discharged on 04/20/18 and she was given a followup appointment with Dr. Bryant in 2 weeks. She was instructed to have a daily diet of about 1000 kilocalories. She was recommended to remain on a liquid or semi-liquid diet, to avoid vegetable fibers, to resume her home medication and activities as tolerated. DICTATING PHYSICIAN: DAVID PHILLIPS M.D. [id number] PHY#: [id number] ID: [id number] JOB#: [id number] ACCT: [id number] cc:DAVID PHILLIPS M.D. EAddis Addis [facility], [facility], [facility]
--- NOTE | 2018-04-22 11:13 | DRAGON STRESS TEST REPORT ---
INTRAVENOUS LEXISCAN CARDIOLITE STRESS TEST USING SINGLE PHOTON EMMISION COMPUTERIZED TOMOGRAPHIC. DATE OF PROCEDURE: April 19, 2018, INDICATION : Chest pain CARDIAC RISK FACTORS: Diabetes, hypertension, dyslipidemia, history of coronary stent RESTING EKG: Sinus rhythm without any baseline ST-T wave changes STRESS EKG: No significant ST segment changes noted with LexiScan bolus REASON FOR TERMINATION: Protocol. PROCEDURE REPORT: Baseline heart rate 80 beats per minute with blood pressure of 159/96. Patient had no significant complaints. Patient was bolused with Lexiscan 0.4 mg intravenously followed by saline bolus. Heart rate at 2 minutes post bolus 112 with a blood pressure of 180/76. 3 minutes post bolus heart rate 101 with blood pressure of 164/110. No significant EKG changes were noted. Patient had no significant complaints during the procedure or postprocedure. CONCLUSIONS: Normal EKG and hemodynamic response to IV LexiScan. NUCLEAR DATA: At rest the patient was given 15.18 millicuries of technetium 99 sestamibi injected intravenously. As per protocol rest gated SPECT images were obtained. On day of stress test, the patient was given intravenous LexiScan at a dose of 0.4 mg in 5 mL intravenously, followed by flush with normal saline. Subsequently the stress dose of 45.1 millicuries of technetium 99 sestamibi was injected intravenously. As per protocol stress gated images were obtained. NUCLEAR INTERPRETATION: Both raw and processed data were used for interpretation. Visual, qualitative, computer-generated quantitative data was used. There was good myocardial uptake of technetium compound. Motion artifact and soft tissue attenuations were noted. Increased visceral uptake was noted. Mild decreased uptake noted in the distal inferolateral wall consistent with mild ischemia involving the distal inferolateral wall, SDS score is only 2, No definitive areas of fixed perfusion defect or scars noted. EKG gated imaging showed LV EF at 60 %, rest and stress gated EF similar visually. T. I D. ratio was 1.21. Lung heart ratio noted to be within normal limits 0.54. No significant extracardiac and abnormal radiotracer activities were noted. RV free wall uptake was noted to be WNL. IMPRESSION: Also refer to comments under nuclear interpretation. Also test results needs to be interpreted in the context of pretest probability. 1. Mild decreased uptake noted in the distal inferolateral wall consistent with mild ischemia involving the distal inferolateral wall. 2. There is no definitive scintigraphic evidence of myocardial infarction/scar. 3. EKG gated imaging shows left ventricular ejection fraction of approx. 60 %. Lung uptake was noted to be increased. Recommend evaluating patient for any parenchymal lung disease, CHF etc. No transient ischemic dilatation is noted and LVEF during stress and rest normal. 4. Clinical correlation requested as occasionally worse disease or balanced ischemia could be missed. In approximately 10% of the cases Lexiscan may not cause adequate vasodilatory stress. RECOMMENDATIONS: Aggressive risk factor modification and medical management. Further evaluation may be needed if continued symptoms or other high risk indicators are noted on clinical evaluation. Close cardiology follow-up is also recommended. Clinical correlation with echocardiogram derived ejection fraction. Inability to exercise by itself can lead to increased cardiovascular event risks. Consider cardiology consultation and or follow-up if clinically indicated. I am available for cardiology evaluation and consultation if requested by the primary health organisation manager, unless patient already has a neurosurgery physician. Dr. Tino Stark. MRCP Board certified in cardiology and sleep medicine. Board certified in nuclear cardiology, adult echocardiography. LIZZETH
== END 2018-04-20 16:35 | disposition home or self-care (01) ==
LOC: ER 00:46 → EH 05:06 → 4S 06:44
PROVIDERS: ATTEND Surgery
DX: K43.6 Other and unspecified ventral hernia with obstruction, without gangrene (principal); I25.10 Atherosclerotic heart disease of native coronary artery without angina pectoris; E66.01 Morbid (severe) obesity due to excess calories; I25.2 Old myocardial infarction; E78.5 Hyperlipidemia, unspecified; I10 Essential (primary) hypertension; E11.9 Type 2 diabetes mellitus without complications; M19.90 Unspecified osteoarthritis, unspecified site; K57.90 Diverticulosis of intestine, part unspecified, without perforation or abscess without bleeding; K76.0 Fatty (change of) liver, not elsewhere classified; G47.9 Sleep disorder, unspecified; F17.200 Nicotine dependence, unspecified, uncomplicated; Z91.041 Radiographic dye allergy status; Z68.43 Body mass index [BMI] 50.0-59.9, adult; Z90.49 Acquired absence of other specified parts of digestive tract; Z98.890 Other specified postprocedural states; Z95.5 Presence of coronary angioplasty implant and graft; Z87.42 Personal history of other diseases of the female genital tract
CPT/HCPCS: 93005 ×2; 96376; 99285; 96361; 96374; 96375; 36415 ×2; 82553; 82550; 83690; 85025 ×2; 85610; 85730; 80048; 80053 ×2; 81001; 84484; 83880; 93017; 74022; 74019 ×2; 78452; 74176; 93010 ×2; A9500; J2785; J2270; J0706; J2405; J7120; Q9969

== ENCOUNTER 2018-08-06 15:58 | Emergency (ER) | payer OTHER ==
[2018-08-06] MEDS ORDERED: ASPIRIN 81 MG TABLET, CHEWABLE PO ONE (17:22)
[2018-08-06] MEDS ORDERED: NORMAL SALINE 1000 ML 1,000 ML IV ONE (17:23)
[2018-08-06] MEDS ORDERED: ONDANSETRON HCL INJ/PF 4 MG/2 ML SDV IV ONE (17:23)
--- NOTE | 2018-08-06 17:27 | ER Document Report ---
ED Medical Screen (RME) - General Chief Complaint: Chest Pain Stated Complaint: CHEST PAIN Time Seen by Provider: 08/06/18 17:15 TRAVEL OUTSIDE OF THE [place] IN LAST 30 DAYS: No - HPI Notes: 08/06/18 17:26 Patient is a 57-year-old female that presents to the emergency department for chief complaint of chest pain and abdominal pain. Patient has history of [place] and complains of chest pain radiating to her left arm and back that began today. The pain is been constant since onset. She took 1 baby aspirin at home with no change in symptoms. She did not take any home nitro because she is also been having abdominal pain and nausea for the last few days and is concerned that the nitro would make her nausea worse. She reports having an abnormal stress test recently and has an appointment in September with cardiology to schedule cardiac catheterization.. ROS: GENERAL: Denies fever of chills CV: chest pain PHYSICAL EXAMINATION: GENERAL: Well-appearing, well-nourished and in no acute distress. HEAD: Atraumatic, normocephalic. EYES: Pupils equal round extraocular movements intact, conjunctiva are normal. ENT: Nares patent NECK: Normal range of motion LUNGS: No respiratory distress Musculoskeletal: Normal range of motion NEUROLOGICAL: Normal speech, normal gait. PSYCH: Normal mood, normal affect. MDM: Patient seen and examined for rapid initial assessment. Vital signs reviewed. A comprehensive ED assessment and evaluation of the patient, analysis of test results and completion of the medical decision making process will be conducted by additional ED providers. - Related Data Allergies/Adverse Reactions: Penicillins Allergy (Severe, Verified 04/18/18 01:39) hives, anaphylaxias promethazine [From Phenergan] Allergy (Verified 04/18/18 01:39) promethazine HCl [From Phenergan] Allergy (Verified 04/18/18 01:39) tardive dyskensia tramadol Allergy (Verified 04/18/18 01:39) prochlorperazine edisylate [From Compazine] Adverse Reaction (Intermediate, Verified 04/18/18 01:39) tardive dyskensia IV dye Allergy (Uncoded 04/18/18 01:39) Past Medical History - Social History Family history: CAD, DM, Hyperlipidemia, Malignancy - Past Medical History Cardiac Medical History: Reports: Hx Coronary Artery Disease, Hx Heart Attack, Hx Hypercholesterolemia, Hx Hypertension Pulmonary Medical History: Denies: Hx Tuberculosis Neurological Medical History: Denies: Hx Seizures Endocrine Medical History: Reports: Hx Diabetes Mellitus Type 2 - diet controlled Renal/ Medical History: Reports: Hx Ovarian Cysts. Denies: Hx Peritoneal Dialysis GI Medical History: Reports: Hx Gastroesophageal Reflux Disease, Hx Irritable Bowel Musculoskeltal Medical History: Reports Hx Arthritis, Reports Hx Musculoskeletal Deformity Psychiatric Medical History: Reports: Hx Depression Traumatic Medical History: Reports: Hx Fractures Past Surgical History: Reports: Hx Appendectomy, Hx Cardiac Catheterization - stent x2, Hx Section - x2, Hx Whipple - laparotomy, Other - Incisional hernia repair with mesh 20 years ago. Denies: Hx Coronary Artery Bypass Graft, Hx Coronary Stent - Immunizations Immunizations up to date: Yes Hx Diphtheria, Pertussis, Tetanus Vaccination: Yes History of Influenza Vaccine for 05/2017 - 10/2017 Season: Refused Physical Exam - Vital signs Vitals: Temp Pulse Resp BP Pulse Ox 98.4 F 83 20 153/115 H 100 08/06/18 16:22 08/06/18 16:22 08/06/18 16:22 08/06/18 16:22 08/06/18 16:22 Course - Vital Signs Vital signs: Temp Pulse Resp BP Pulse Ox 98.4 F 83 20 153/115 H 100 08/06/18 16:22 08/06/18 16:22 08/06/18 16:22 08/06/18 16:22 08/06/18 16:22
[2018-08-06 17:53] LABS: ABSOLUTE BASOPHILS # (AUTO) 0.1 10^3/uL (0.0-0.2); ABSOLUTE EOSINOPHILS # (AUTO) 0.2 10^3/uL (0.0-0.6); ABSOLUTE MONOCYTES (AUTO) 0.7 10^3/uL (0.1-1.4); BASOPHILS % (AUTO) 0.6 % (0-2); EOSINOPHILS % (AUTO) 1.3 % (0-6); HEMATOCRIT 46.1 % (36.0-47.0); HEMOGLOBIN 15.7 g/dL (12.0-15.5); LYMPHOCYTES % (AUTO) 15.2 % (13-45); MEAN CORPUSCULAR HEMOGLOBIN 29.8 pg (27.0-33.4); MEAN CORPUSCULAR VOLUME 87 fl (80-97); MONOCYTES % (AUTO) 5.7 % (3-13); PLATELET COUNT 293 10^3/uL (150-450); RED BLOOD COUNT 5.27 10^6/uL (3.72-5.28); RED CELL DISTRIBUTION WIDTH 13.9 % (11.5-14.0); SEGMENTED NEUTROPHILS % (AUTO) 77.2 % (42-78); TOTAL CELLS COUNTED % (AUTO) 100 %
[2018-08-06 18:19] LABS: ALANINE AMINOTRANSFERASE 43 U/L (9-52); ALBUMIN 4.8 g/dL (3.5-5.0); ALKALINE PHOSPHATASE 97 U/L (38-126); ANION GAP 14 (5-19); ASPARTATE AMINO TRANSFERASE 36 U/L (14-36); BILIRUBIN,DIRECT 0.5 mg/dL (0.0-0.4); BILIRUBIN,TOTAL 1.2 mg/dL (0.2-1.3); BLOOD UREA NITROGEN 13 mg/dL (7-20); CALCIUM 10.3 mg/dL (8.4-10.2); CARBON DIOXIDE 25 mmol/L (22-30); CHLORIDE 102 mmol/L (98-107); GLUCOSE 146 mg/dL (75-110); LIPASE 78.2 U/L (23-300); POTASSIUM 4.6 mmol/L (3.6-5.0); SODIUM 140.6 mmol/L (137-145); TOTAL PROTEIN 8.2 g/dL (6.3-8.2)
--- NOTE | 2018-08-06 18:21 | RADIOLOGY REPORT (SQ) ---
EXAM DESCRIPTION: CHEST SINGLE VIEW COMPLETED DATE/TIME: 08/06/2018 6:04 pm REASON FOR STUDY: chest pain COMPARISON: 02/02/2016 EXAM PARAMETERS: NUMBER OF VIEWS: One view. TECHNIQUE: Single frontal radiographic view of the chest acquired. RADIATION DOSE: NA LIMITATIONS: None. FINDINGS: LUNGS AND PLEURA: No opacities, masses or pneumothorax. No pleural effusion. There is per sistent elevation of the right hemidiaphragm. MEDIASTINUM AND HILAR STRUCTURES: No masses. Contour normal. HEART AND VASCULAR STRUCTURES: Heart normal in size. Normal vasculature. BONES: No acute findings. HARDWARE: None in the chest. OTHER: No other significant finding. IMPRESSION: NO ACUTE RADIOGRAPHIC FINDING IN THE CHEST. TECHNICAL DOCUMENTATION: JOB ID: [id number] [employer]- All Rights Reserved Reading location - IP/workstation name: [email or web address]
--- NOTE | 2018-08-06 18:22 | RADIOLOGY REPORT (SQ) ---
EXAM DESCRIPTION: KUB/ABDOMEN (SINGLE VIEW) COMPLETED DATE/TIME: 08/06/2018 6:03 pm REASON FOR STUDY: abdominal pain COMPARISON: 04/19/2018 NUMBER OF VIEWS: One view. TECHNIQUE: Supine radiographic image of the abdomen acquired. LIMITATIONS: Study is limited by artifact from something lying on or behind the patient FINDINGS: BOWEL GAS PATTERN: Normal bowel gas pattern. No dilated loops. CALCIFICATIONS: No suspicious calcifications. SOFT TISSUES: No gross mass or suggestion of organomegaly. HARDWARE: None in the abdomen. BONES: No acute fracture. No worrisome bone lesions. OTHER: No other significant finding. IMPRESSION: Limited study. No obvious acute findings. TECHNICAL DOCUMENTATION: JOB ID: [id number] [employer]- All Rights Reserved Reading location - IP/workstation name: [email or web address]
[2018-08-06 20:14] LABS: APPEARANCE,URINE CLEAR; BILIRUBIN,URINE NEGATIVE (NEGATIVE); COLOR,URINE YELLOW; GLUCOSE, URINE NEGATIVE (NEGATIVE); KETONES,URINE NEGATIVE (NEGATIVE); LEUKOCYTE ESTERASE,URINE NEGATIVE (NEGATIVE); NITRITE,URINE NEGATIVE (NEGATIVE); PROTEIN,URINE NEGATIVE (NEGATIVE); UROBILINOGEN,URINE NEGATIVE mg/dL (<2.0)
[2018-08-06] MEDS ORDERED: MORPHINE SULFATE 10 MG/ML INJ IV ONE (20:38)
--- NOTE | 2018-08-06 20:43 | ER Document Report ---
ED General - General Chief Complaint: Chest Pain Stated Complaint: CHEST PAIN Time Seen by Provider: 08/06/18 17:15 Notes: Patient is a 57-year-old female that comes emergency department for chief complaint of abdominal pain and chest pain. Chest pain is in the left side of her chest and radiates to her left shoulder. She states she no longer has any chest pain and just has the abdominal pain, abdominal pain is focused over the left mid abdomen where she has a known large ventral hernia. She states she vomited with the pain in the triage area. Patient has a medical history including a ventral hernia that was supposed to be delayed for repair until she lost weight, CAD with PR and stents in 2017, hypertension, hyperlipidemia, appendectomy. Patient states that she gets chest pain almost every day, she states she has a flareup of severe abdominal pain in the hernia area every few months but when it becomes this bad and she vomits she has come to the emergency department. She also reports that she had an abnormal stress test and was scheduled to have a cardiac catheterization in September by her hammer fitter Dr. Landers in [facility]. She denies fever, she reports normal stools, she denies dizziness, she denies hematemesis. TRAVEL OUTSIDE OF THE [place] IN LAST 30 DAYS: No - Related Data Allergies/Adverse Reactions: Penicillins Allergy (Severe, Verified 08/06/18 19:04) hives, anaphylaxias promethazine [From Phenergan] Allergy (Verified 08/06/18 19:04) promethazine HCl [From Phenergan] Allergy (Verified 08/06/18 19:04) tardive dyskensia tramadol Allergy (Verified 08/06/18 19:04) prochlorperazine edisylate [From Compazine] Adverse Reaction (Intermediate, Verified 08/06/18 19:04) tardive dyskensia IV dye Allergy (Uncoded 08/06/18 19:04) Past Medical History - General Information source: Patient - Social History Smoking Status: Never Smoker Frequency of alcohol use: None Drug Abuse: None Lives with: Family Family History: Reviewed & Not Pertinent Patient has suicidal ideation: No Patient has homicidal ideation: No - Past Medical History Cardiac Medical History: Reports: Hx Coronary Artery Disease, Hx Heart Attack, Hx Hypercholesterolemia, Hx Hypertension Pulmonary Medical History: Denies: Hx Tuberculosis Neurological Medical History: Denies: Hx Seizures Endocrine Medical History: Reports: Hx Diabetes Mellitus Type 2 - diet controlled Renal/ Medical History: Reports: Hx Ovarian Cysts. Denies: Hx Peritoneal Dialysis GI Medical History: Reports: Hx Gastroesophageal Reflux Disease, Hx Irritable Bowel Musculoskeletal Medical History: Reports Hx Arthritis, Reports Hx Musculoskeletal Deformity Psychiatric Medical History: Reports: Hx Depression Traumatic Medical History: Reports: Hx Fractures Past Surgical History: Reports: Hx Appendectomy, Hx Cardiac Catheterization - stent x2, Hx Section - x2, Hx Whipple - laparotomy, Other - Incisional hernia repair with mesh 20 years ago. Denies: Hx Coronary Artery Bypass Graft, Hx Coronary Stent - Immunizations Immunizations up to date: Yes Hx Diphtheria, Pertussis, Tetanus Vaccination: Yes Review of Systems - Review of Systems Constitutional: No symptoms reported EENT: No symptoms reported Cardiovascular: See HPI Respiratory: No symptoms reported Gastrointestinal: See HPI Genitourinary: No symptoms reported Female Genitourinary: No symptoms reported Musculoskeletal: No symptoms reported Skin: No symptoms reported Hematologic/Lymphatic: No symptoms reported Neurological/Psychological: No symptoms reported Physical Exam - Vital signs Vitals: Temp Pulse Resp BP Pulse Ox 98.4 F 83 20 153/115 H 100 08/06/18 16:22 08/06/18 16:22 08/06/18 16:22 08/06/18 16:22 08/06/18 16:22 - Notes Notes: GENERAL: Alert, interacts well. No acute distress. HEAD: Normocephalic, atraumatic. EYES: Pupils equal, round, and reactive to light. Extraocular movements intact. ENT: Oral mucosa moist, tongue midline. Oropharynx unremarkable. Airway patent. Nares patent, no nasal septal hematoma, TM's intact. NECK: Full range of motion. Supple. Trachea midline. LUNGS: Clear to auscultation bilaterally, no wheezes, rales, or rhonchi. No respiratory distress. HEART: Regular rate and rhythm. No murmur ABDOMEN: Distended abdomen with large area of left ventral hernia, area is tender but no rigidity, guarding, induration, or arrhythmia noted. Remaining abdomen unremarkable. GENITOURINARY: Deferred EXTREMITIES: Moves all 4 extremities spontaneously. No edema, normal radial and dorsalis pedis pulses bilaterally. No cyanosis. BACK: no cervical, thoracic, lumbar midline tenderness. No saddle anesthesia, normal distal neurovascular exam. NEUROLOGICAL: Alert and oriented x3. Normal speech. [cranial nerves II through XII grossly intact]. PSYCH: Normal affect, normal mood. SKIN: Warm, dry, normal turgor. No rashes or lesions noted. Course - Re-evaluation Re-evalutation: CBC shows mild leukocytosis. Chemistry is normal. Troponin is not elevated, troponin cycled and is not elevated. Chest x-ray unremarkable, KUB does not show obstruction. Urinalysis unremarkable. EKG sinus rhythm with no T wave inversions or ST segment changes in consecutive leads. On evaluation patient is only complaining of pain in the abdomen. Pain is over the large ventral hernia on the left side, however the area is not rigid, indurated, erythematous. After checking lactic acid which was normal and medicating patient along with patient receiving IV fluids I reevaluated the patient. She states she has no current symptoms. Her abdomen is benign on reevaluation. Patient is acting to leave. I discussed CAT scan but patient states that she was told that her hernia is inoperable and she feels fine now. She also states that she has good cardiology follow-up and can call them in the morning. She states that the chest pain she had she has frequently, almost every day, this is not different. She states she will come back if she worsens in any way. She states that she is very comfortable going home at this time. Vital signs unremarkable. I do not believe that patient has an incarcerated hernia based on her re-evaluations, patient stable at time of discharge. - Vital Signs Vital signs: Temp Pulse Resp BP Pulse Ox 98.4 F 83 20 146/92 H 100 08/06/18 16:22 08/06/18 16:22 08/06/18 22:01 08/06/18 22:01 08/06/18 22:01 - Laboratory Result Diagrams: 08/06/18 17:35 08/06/18 17:35 Laboratory results interpreted by me: 08/06/18 08/06/18 17:35 17:35 WBC 13.0 H Hgb 15.7 H Absolute Neutrophils 10.0 H Glucose 146 H Calcium 10.3 H Direct Bilirubin 0.5 H Discharge - Discharge Clinical Impression: Abdominal pain Qualifiers: Abdominal location: generalized Qualified Code(s): R10.84 - Generalized abdominal pain Chest pain Qualifiers: Chest pain type: unspecified Qualified Code(s): R07.9 - Chest pain, unspecified Condition: Stable Disposition: HOME, SELF-CARE Additional Instructions: Your workup at this time is reassuring. Please follow close with your hammer fitter as discussed, also follow-up with your primary care as discussed. You were provided with pain and nausea medication for your abdominal hernia pain. Return immediately if you worsen including return or worsening pain, hardening of the area, fever, vomiting, passing out, or any other concerning symptoms. Referrals: [facility] [Primary [facility] Provider] - Follow up as needed
[2018-08-06] MEDS ORDERED: HYDROCODONE/ACETAMINOPHEN 5-325 MG (6 TAB/ER DISP) PO PRN (22:36)
[2018-08-06] MEDS ORDERED: ONDANSETRON ODT 4 MG TAB (6 TAB/ER DISP) PO PRN (22:36)
[2018-08-06 22:44] VITALS: BP 146/92
--- NOTE | 2018-08-06 23:34 | EKG REPORT ---
SEVERITY:- BORDERLINE ECG - SINUS RHYTHM BORDERLINE R WAVE PROGRESSION, ANTERIOR LEADS : Confirmed by: Nasreen Klein MD 06-Aug-2018 23:34:32
--- NOTE | 2018-08-09 10:02 | EKG REPORT ---
SEVERITY:- ABNORMAL ECG - SINUS RHYTHM LEFT VENTRICULAR HYPERTROPHY CONSIDER ANTERIOR INFARCT : Confirmed by: Nasreen Klein MD 09-Aug-2018 10:00:44
== END 2018-08-06 23:37 | disposition home or self-care (01) ==
LOC: ER 15:58
DX: K43.9 Ventral hernia without obstruction or gangrene (principal); R07.9 Chest pain, unspecified; R10.84 Generalized abdominal pain; I25.10 Atherosclerotic heart disease of native coronary artery without angina pectoris; I10 Essential (primary) hypertension; I25.2 Old myocardial infarction; Z88.5 Allergy status to narcotic agent; Z88.8 Allergy status to other drugs, medicaments and biological substances; Z91.041 Radiographic dye allergy status; Z87.892 Personal history of anaphylaxis; Z88.0 Allergy status to penicillin; Z95.5 Presence of coronary angioplasty implant and graft
CPT/HCPCS: 93005; 99285; 96361; 96374; 96375; 36415; 83605; 83690; 85025; 80053; 81001; 84484; 71045; 74018; 93010; J2270; J2405; J7030

== ENCOUNTER 2019-01-12 19:59 | Emergency (ER) | payer OTHER ==
[~2019-01-12 19:59] MED LIST: ASPIRIN 81 MG TABLET, CHEWABLE ONE; CLOPIDOGREL BISULFATE 300 MG TABLET ONE; ENOXAPARIN SODIUM INJ 30 MG/0.3 ML DISP.SYRIN ONE; NITROGLYCERIN 0.4 MG/TAB 25 TAB/BOTTLE ONE; TENECTEPLASE INJ 50 MG KIT IV ONE
--- NOTE | 2019-01-12 20:35 | ER Document Report ---
ED General - General Chief Complaint: Chest Pain > 30 Stated Complaint: CHEST/LEFT ARM/NECK PAIN Time Seen by Provider: 01/12/19 20:30 Primary Care Provider: RADHA QUINTANILLA [Primary Care Provider] - Follow up as needed Notes: Patient is a 58-year-old female with a past medical history of coronary artery disease, has had 2 stents placed in the past for a NSTEMI, hypertension, hyperlipidemia, diabetes, morbid obesity who presents with acute onset of left- sided chest pain radiating to her left jaw and left arm. Describes the pain as being a severe, pressure, throbbing discomfort to the affected area. Nothing seems to improve or worsen this pain. Denies any history of such discomfort in the past. Notes associated nausea and shortness of breath. She has not vomited. No obvious exacerbating factors although she notes that her symptoms started after she had been physically exerting herself while cleaning her house. She does arrive via personal vehicle. TRAVEL OUTSIDE OF THE [place] IN LAST 30 DAYS: No - Related Data Allergies/Adverse Reactions: Penicillins Allergy (Severe, Verified 01/12/19 21:14) hives, anaphylaxias promethazine [From Phenergan] Allergy (Verified 01/12/19 21:14) promethazine HCl [From Phenergan] Allergy (Verified 01/12/19 21:14) tardive dyskensia tramadol Allergy (Verified 01/12/19 21:14) prochlorperazine edisylate [From Compazine] Adverse Reaction (Intermediate, Verified 01/12/19 21:14) tardive dyskensia IV dye Allergy (Uncoded 01/12/19 21:14) Past Medical History - General Information source: Patient - Social History Smoking Status: Never Smoker Frequency of alcohol use: None Drug Abuse: None Lives with: Spouse/Significant other Family History: Reviewed & Not Pertinent - Past Medical History Cardiac Medical History: Reports: Hx Coronary Artery Disease, Hx Heart Attack, Hx Hypercholesterolemia, Hx Hypertension Pulmonary Medical History: Denies: Hx Tuberculosis Neurological Medical History: Denies: Hx Seizures Endocrine Medical History: Reports: Hx Diabetes Mellitus Type 2 - diet controlled Renal/ Medical History: Reports: Hx Ovarian Cysts. Denies: Hx Peritoneal Dialysis GI Medical History: Reports: Hx Gastroesophageal Reflux Disease, Hx Irritable Bowel Musculoskeletal Medical History: Reports Hx Arthritis, Reports Hx Musculoskeletal Deformity Psychiatric Medical History: Reports: Hx Depression Traumatic Medical History: Reports: Hx Fractures Past Surgical History: Reports: Hx Appendectomy, Hx Cardiac Catheterization - stent x2, Hx Section - x2, Hx Whipple - laparotomy, Other - Incisional hernia repair with mesh 20 years ago. Denies: Hx Coronary Artery Bypass Graft, Hx Coronary Stent - Immunizations Immunizations up to date: Yes Hx Diphtheria, Pertussis, Tetanus Vaccination: Yes Review of Systems - Review of Systems Notes: Constitutional: Negative for fever. HENT: Negative for sore throat. Eyes: Negative for visual changes. Cardiovascular: Positive for chest pain. Respiratory: Positive for shortness of breath. Gastrointestinal: Negative for abdominal pain, positive for nausea Genitourinary: Negative for dysuria. Musculoskeletal: Negative for back pain. Skin: Negative for rash. Neurological: Negative for headaches, weakness or numbness. 10 point ROS negative except as marked above and in HPI. Physical Exam - Vital signs Vitals: Pulse 107 H 01/12/19 20:20 Interpretation: Hypertensive Notes: PHYSICAL EXAMINATION: GENERAL: Appears uncomfortable but in no overt distress HEAD: Atraumatic, normocephalic. EYES: Pupils equal round and reactive to light, extraocular movements intact, sclera anicteric, conjunctiva are normal. ENT: nares patent, oropharynx clear without exudates. Moderately dry mucous membranes. NECK: Normal range of motion, supple without lymphadenopathy LUNGS: Breath sounds clear to auscultation bilaterally and equal. No wheezes rales or rhonchi. HEART: Regular rate and rhythm without murmurs ABDOMEN: Soft, nontender, normoactive bowel sounds. No guarding, no rebound. No masses appreciated. EXTREMITIES: Normal range of motion, no pitting or edema. No cyanosis. NEUROLOGICAL: No focal neurological deficits. Moves all extremities spontaneously and on command. PSYCH: Moderately anxious but appropriate to situation SKIN: Warm, Dry, normal turgor, no rashes or lesions noted. Course - Re-evaluation Re-evalutation: 01/12/19 20:34 Documentation is delayed as I been at this patient's bedside continuously. The patient's EKG was brought to me from the front. This did demonstrate a pattern of an inferior lateral ST elevation GA. I instructed the patient was immediately brought back to the room for initiation of our STEMI protocol. On assessment the patient appears uncomfortable, somewhat diaphoretic, states that she is having pain in her left chest radiating to her jaw and arm with associated shortness of breath. She is also quite nauseated but has not vomited. Her vitals are within excepted limits on my initial assessment. Patient did take 162 mg of aspirin at home, and additional 162 mg has been ad ministered. Our STEMI protocol has been initiated. Patient's employee relations specialist is at [facility]. We have contacted them for a STEMI transfer. Awaiting callback. Patient is in guarded condition, will be reassessed at regular intervals. 01/12/19 20:49 I have discussed this case with the supervisor poultry farm at [facility] Dr. Parish who has accepted the patient. I did send him the EKG and he agrees that this is an inferior lateral GA. He is in agreement with proceeding along with our standard STEMI protocol including TNKase administration. Patient has had some pain relief with morphine, minimal with nitroglycerin. Initial systolic pressures were in the 180s although we have manually checked bilaterally and it is in the 130 systolic so I will avoid administering labetalol at this time. Patient remains in very guarded condition, will continue to reassess at regular intervals. Flight transport is in route to the hospital. 01/12/19 21:17 Repeat EKG remains unchanged from previous. Transport has arrived and patient is exiting the facility. Chest pain improved at this time although does continue to be present. - Vital Signs Vital signs: Temp Pulse Resp BP Pulse Ox 98.4 F 107 H 15 98 01/12/19 20:26 01/12/19 20:20 01/12/19 21:00 01/12/19 21:00 - Laboratory Result Diagrams: 01/12/19 20:25 01/12/19 20:25 Laboratory results interpreted by me: 01/12/19 01/12/19 20:25 20:25 WBC 12.4 H Glucose 147 H - Diagnostic Test Radiology reviewed: Image reviewed, Reports reviewed Radiology results interpreted by me: 01/12/19 20:53 Chest x-ray: No acute infiltrate or pneumothorax - EKG Interpretation by Me Additional EKG results interpreted by me: 01/12/19 20:35 Sinus rhythm, rate 98, inferior lateral ST elevation GA with elevations in leads V4 through 6 as well as in leads II and III 01/12/19 21:18 Repeat EKG, unchanged from previous in terms of ST elevations. Rate 87. Critical Care Note - Critical Care Note Total time excluding time spent on procedures (mins): 36 Comments: Critical care time spent obtaining history from patient or surrogate, discussions with consultants, development of treatment plan with patient or surrogate, evaluation of patient's response to treatment, examination of patient, ordering and performing treatments and interventions, ordering and review of laboratory studies, re-evaluation of patient's condition, ordering and review of radiographic studies and review of old charts Discharge - Discharge Clinical Impression: Jaw pain, Shortness of breath STEMI (ST elevation myocardial infarction) Qualifiers: Involved coronary artery: unspecified coronary artery Qualified Code(s): I21.3 - ST elevation (STEMI) myocardial infarction of unspecified site Chest pain Qualifiers: Chest pain type: unspecified Qualified Code(s): R07.9 - Chest pain, unspecified Condition: Critical Disposition: [facility]ICAL [facility]ITAL [facility]errals: [facility] [Primary Care Provider] - Follow up as needed
[2019-01-12 20:37] LABS: ABSOLUTE BASOPHILS # (AUTO) 0.1 10^3/uL (0.0-0.2); ABSOLUTE EOSINOPHILS # (AUTO) 0.3 10^3/uL (0.0-0.6); ABSOLUTE MONOCYTES (AUTO) 1.1 10^3/uL (0.1-1.4); ABSOLUTE NEUT (AUTO) 7.9 10^3/uL (1.7-8.2); BASOPHILS % (AUTO) 0.7 % (0-2); EOSINOPHILS % (AUTO) 2.2 % (0-6); HEMATOCRIT 43.8 % (36.0-47.0); HEMOGLOBIN 15.1 g/dL (12.0-15.5); LYMPHOCYTES % (AUTO) 24.5 % (13-45); MEAN CORPUSCULAR HEMOGLOBIN 29.8 pg (27.0-33.4); MEAN CORPUSCULAR HGB CONC 34.5 g/dL (32.0-36.0); MEAN CORPUSCULAR VOLUME 86 fl (80-97); MONOCYTES % (AUTO) 9.1 % (3-13); PLATELET COUNT 261 10^3/uL (150-450); RED BLOOD COUNT 5.07 10^6/uL (3.72-5.28); RED CELL DISTRIBUTION WIDTH 13.5 % (11.5-14.0); SEGMENTED NEUTROPHILS % (AUTO) 63.5 % (42-78); TOTAL CELLS COUNTED % (AUTO) 100 %; WHITE BLOOD COUNT 12.4 10^3/uL (4.0-10.5)
[2019-01-12] MEDS ORDERED: MORPHINE SULFATE 10 MG/ML INJ ONE (20:40)
[2019-01-12] MEDS ORDERED: ENOXAPARIN SODIUM INJ 100 MG/1 ML DISP.SYRIN SUBCUT ONE (20:49)
[2019-01-12] MEDS ORDERED: ENOXAPARIN SODIUM INJ 150 MG/1 ML DISP.SYRIN SUBCUT ONE (20:50)
[2019-01-12 20:51] LABS: ALANINE AMINOTRANSFERASE 39 U/L (9-52); ALBUMIN 4.3 g/dL (3.5-5.0); ALKALINE PHOSPHATASE 68 U/L (38-126); ANION GAP 12 (5-19); ASPARTATE AMINO TRANSFERASE 33 U/L (14-36); BILIRUBIN,DIRECT 0.3 mg/dL (0.0-0.4); BILIRUBIN,TOTAL 0.6 mg/dL (0.2-1.3); BLOOD UREA NITROGEN 18 mg/dL (7-20); CALCIUM 10.1 mg/dL (8.4-10.2); CARBON DIOXIDE 25 mmol/L (22-30); CHLORIDE 101 mmol/L (98-107); CREATINE KINASE 96 U/L (30-135); GLUCOSE 147 mg/dL (75-110); POTASSIUM 4.2 mmol/L (3.6-5.0); SODIUM 138.4 mmol/L (137-145); TOTAL PROTEIN 7.3 g/dL (6.3-8.2)
[2019-01-12 20:55] LABS: INTERNATIONAL RATION (INR) 0.88; PROTHROMBIN TIME 12.3 SEC (11.4-15.4)
[2019-01-12 20:56] LABS: PARTIAL THROMBOPLASTIN TIME 24.1 SEC (23.5-35.8)
[2019-01-12 21:03] LABS: CREATINE KINASE MB 0.92 ng/mL (<4.55)
[2019-01-12 21:05] LABS: TROPONIN I 0.065 ng/mL
--- NOTE | 2019-01-12 21:16 | RADIOLOGY REPORT (SQ) ---
EXAM DESCRIPTION: XR CHEST 1 VIEW COMPLETED DATE/TME: 01/12/2019 20:31 CLINICAL HISTORY: cp COMPARISON: August 06, 2018 FINDINGS: Cardiac silhouette is within normal limits. There is elevation of the right hemidiaphragm, unchanged compared with the prior exam. EKG leads project over the chest. There is no focal parenchymal or pleural disease. There is no acute osseous process visualized. IMPRESSION: No evidence of acute cardiopulmonary disease.
[2019-01-12 21:43] VITALS: BP 150/98
--- NOTE | 2019-01-12 23:44 | EKG REPORT ---
SEVERITY:- ABNORMAL ECG - SINUS RHYTHM INFERIOR INJURY, PROBABLE EARLY ACUTE INFARCT BORDERLINE R WAVE PROGRESSION, ANTERIOR LEADS MINIMAL ST ELEVATION, ANTEROLATERAL LEADS : Confirmed by: Thaddeus Ramirez MD 12-Jan-2019 23:44:02
--- NOTE | 2019-01-13 06:37 | EKG REPORT ---
SEVERITY:- ABNORMAL ECG - SINUS RHYTHM CONSIDER ANTERIOR INFARCT ST ELEVATION, CONSIDER ACUTE INFERIOR INJURY : Confirmed by: Thaddeus Ramirez MD 13-Jan-2019 06:36:11
== END 2019-01-12 21:06 | disposition short-term general hospital (02) ==
LOC: ER 19:59
DX: I21.19 ST elevation (STEMI) myocardial infarction involving other coronary artery of inferior wall (principal); R07.89 Other chest pain; R68.84 Jaw pain; M79.602 Pain in left arm; R06.02 Shortness of breath; E11.9 Type 2 diabetes mellitus without complications; I10 Essential (primary) hypertension; I25.2 Old myocardial infarction; I25.10 Atherosclerotic heart disease of native coronary artery without angina pectoris; Z95.5 Presence of coronary angioplasty implant and graft; Z87.892 Personal history of anaphylaxis; Z88.0 Allergy status to penicillin; Z88.8 Allergy status to other drugs, medicaments and biological substances; Z91.041 Radiographic dye allergy status; R11.0 Nausea
CPT/HCPCS: 93005; 99291; 96372; 96374; 36415; 82553; 82550; 85025; 85610; 85730; 80053; 84484; 71045; 93010; J3101; J3490; J1650

== ENCOUNTER 2019-02-07 02:54 | Emergency (ER) | payer OTHER ==
[2019-02-07 04:22] LABS: ABSOLUTE EOSINOPHILS # (AUTO) 0.2 10^3/uL (0.0-0.6); ABSOLUTE LYMPHOCYTES (AUTO) 1.4 10^3/uL (0.5-4.7); ABSOLUTE MONOCYTES (AUTO) 0.7 10^3/uL (0.1-1.4); ABSOLUTE NEUT (AUTO) 7.3 10^3/uL (1.7-8.2); BASOPHILS % (AUTO) 0.4 % (0-2); EOSINOPHILS % (AUTO) 2.6 % (0-6); HEMATOCRIT 43.4 % (36.0-47.0); HEMOGLOBIN 15.1 g/dL (12.0-15.5); LYMPHOCYTES % (AUTO) 14.3 % (13-45); MEAN CORPUSCULAR HEMOGLOBIN 30.2 pg (27.0-33.4); MEAN CORPUSCULAR HGB CONC 34.9 g/dL (32.0-36.0); MEAN CORPUSCULAR VOLUME 87 fl (80-97); MONOCYTES % (AUTO) 6.8 % (3-13); PLATELET COUNT 257 10^3/uL (150-450); RED BLOOD COUNT 5.02 10^6/uL (3.72-5.28); RED CELL DISTRIBUTION WIDTH 13.8 % (11.5-14.0); SEGMENTED NEUTROPHILS % (AUTO) 75.9 % (42-78); TOTAL CELLS COUNTED % (AUTO) 100 %; WHITE BLOOD COUNT 9.7 10^3/uL (4.0-10.5)
[2019-02-07 04:44] LABS: ALANINE AMINOTRANSFERASE 43 U/L (9-52); ALBUMIN 4.2 g/dL (3.5-5.0); ALKALINE PHOSPHATASE 83 U/L (38-126); ANION GAP 10 (5-19); ASPARTATE AMINO TRANSFERASE 28 U/L (14-36); BILIRUBIN,DIRECT 0.2 mg/dL (0.0-0.4); BILIRUBIN,TOTAL 0.7 mg/dL (0.2-1.3); BLOOD UREA NITROGEN 15 mg/dL (7-20); CARBON DIOXIDE 25 mmol/L (22-30); CHLORIDE 104 mmol/L (98-107); GLUCOSE 176 mg/dL (75-110); LIPASE 70.8 U/L (23-300); POTASSIUM 4.6 mmol/L (3.6-5.0); SODIUM 138.8 mmol/L (137-145); TOTAL PROTEIN 7.3 g/dL (6.3-8.2)
[2019-02-07 07:19] LABS: AMORPHOUS SEDIMENT,URINE TRACE /HPF; APPEARANCE,URINE TURBID; BILIRUBIN,URINE NEGATIVE (NEGATIVE); COLOR,URINE YELLOW; GLUCOSE, URINE NEGATIVE (NEGATIVE); KETONES,URINE NEGATIVE (NEGATIVE); LEUKOCYTE ESTERASE,URINE NEGATIVE (NEGATIVE); NITRITE,URINE NEGATIVE (NEGATIVE); PROTEIN,URINE 30 mg/dL (NEGATIVE); URINE SPECIFIC GRAVITY 1.031
[2019-02-07] MEDS ORDERED: FENTANYL CITRATE INJ/PF 100 MCG/2 ML AMPUL IV ONE ×4 (07:28→15:38)
[2019-02-07] MEDS ORDERED: NORMAL SALINE 1000 ML 1,000 ML IV ONE (07:28)
[2019-02-07] MEDS ORDERED: ONDANSETRON HCL INJ/PF 4 MG/2 ML SDV IV ONE ×3 (07:28→15:38)
--- NOTE | 2019-02-07 07:33 | ER Document Report ---
ED Medical Screen (RME) - General Chief Complaint: Abdominal Pain Stated Complaint: ABDOMINAL PAIN Time Seen by Provider: 02/07/19 07:10 Notes: Patient is a 58-year-old female who presents emerged department with a chief complaint of abdominal pain. She started to have abdominal pain after being started on Brilinta week ago. She states for the past 2 days her abdominal pain has gotten worse. She does note some abdominal distention on the left lower quadrant. She did have a bowel movement last night and she states it was ribbonlike. Denies any hematochezia. She does have some nausea, but has not vomited. She has a past surgical history of appendectomy, abdominal mesh placement for a hernia repair, diverticulitis. Exam: Distended left lower abdomen. Tenderness to the left lower abdomen. I have greeted and performed a rapid initial assessment of this patient. A comprehensive ED assessment and evaluation of the patient, analysis of test results and completion of medical decision making process will be conducted by an additional ED providers. TRAVEL OUTSIDE OF THE [place] IN LAST 30 DAYS: No - Related Data Allergies/Adverse Reactions: Penicillins Allergy (Severe, Verified 01/12/19 21:14) hives, anaphylaxias promethazine [From Phenergan] Allergy (Verified 01/12/19 21:14) promethazine HCl [From Phenergan] Allergy (Verified 01/12/19 21:14) tardive dyskensia tramadol Allergy (Verified 01/12/19 21:14) prochlorperazine edisylate [From Compazine] Adverse Reaction (Intermediate, Verified 01/12/19 21:14) tardive dyskensia IV dye Allergy (Uncoded 01/12/19 21:14) Past Medical History - Social History Chew tobacco use (# tins/day): No Frequency of alcohol use: None Drug Abuse: None Family history: CAD, DM, Hyperlipidemia, Malignancy - Past Medical History Cardiac Medical History: Reports: Hx Coronary Artery Disease, Hx Heart Attack, Hx Hypercholesterolemia, Hx Hypertension Pulmonary Medical History: Denies: Hx Tuberculosis Neurological Medical History: Denies: Hx Seizures Endocrine Medical History: Reports: Hx Diabetes Mellitus Type 2 - diet controlled Renal/ Medical History: Reports: Hx Ovarian Cysts. Denies: Hx Peritoneal Dialysis GI Medical History: Reports: Hx Gastroesophageal Reflux Disease, Hx Irritable Bowel Musculoskeltal Medical History: Reports Hx Arthritis, Reports Hx Musculoskeletal Deformity Psychiatric Medical History: Reports: Hx Depression Traumatic Medical History: Reports: Hx Fractures Past Surgical History: Reports: Hx Appendectomy, Hx Cardiac Catheterization - stent x2, Hx Section - x2, Hx Whipple - laparotomy, Other - Incisional hernia repair with mesh 20 years ago. Denies: Hx Coronary Artery Bypass Graft, Hx Coronary Stent - Immunizations Immunizations up to date: Yes Hx Diphtheria, Pertussis, Tetanus Vaccination: Yes History of Influenza Vaccine for 05/2017 - 10/2017 Season: Refused Physical Exam - Vital signs Vitals: Temp Pulse Resp BP Pulse Ox 98.0 F 104 H 22 H 148/100 H 98 02/07/19 03:05 02/07/19 03:05 02/07/19 03:05 02/07/19 03:05 02/07/19 03:05 Course - Vital Signs Vital signs: Temp Pulse Resp BP Pulse Ox 97.9 F 98 20 141/64 H 100 02/07/19 07:11 02/07/19 07:11 02/07/19 07:11 02/07/19 07:11 02/07/19 07:11 - Laboratory Result Diagrams: 02/07/19 03:45 02/07/19 03:45 Laboratory results interpreted by me: 02/07/19 02/07/19 03:45 04:25 Glucose 176 H Urine Protein 30 H Urine Urobilinogen 2.0 H
--- NOTE | 2019-02-07 08:50 | ER Document Report ---
ED General - General Chief Complaint: Abdominal Pain Stated Complaint: ABDOMINAL PAIN Time Seen by Provider: 02/07/19 07:10 TRAVEL OUTSIDE OF THE [place] IN LAST 30 DAYS: No - Related Data Allergies/Adverse Reactions: Penicillins Allergy (Severe, Verified 01/12/19 21:14) hives, anaphylaxias promethazine [From Phenergan] Allergy (Verified 01/12/19 21:14) promethazine HCl [From Phenergan] Allergy (Verified 01/12/19 21:14) tardive dyskensia tramadol Allergy (Verified 01/12/19 21:14) prochlorperazine edisylate [From Compazine] Adverse Reaction (Intermediate, Verified 01/12/19 21:14) tardive dyskensia IV dye Allergy (Uncoded 01/12/19 21:14) Past Medical History - General Information source: Patient - Social History Smoking Status: Never Smoker Chew tobacco use (# tins/day): No Frequency of alcohol use: None Drug Abuse: None Family History: Reviewed & Not Pertinent Patient has suicidal ideation: No Patient has homicidal ideation: No - Past Medical History Cardiac Medical History: Reports: Hx Coronary Artery Disease, Hx Heart Attack, Hx Hypercholesterolemia, Hx Hypertension Pulmonary Medical History: Denies: Hx Tuberculosis Neurological Medical History: Denies: Hx Seizures Endocrine Medical History: Reports: Hx Diabetes Mellitus Type 2 - diet controlled Renal/ Medical History: Reports: Hx Ovarian Cysts. Denies: Hx Peritoneal Dialysis GI Medical History: Reports: Hx Gastroesophageal Reflux Disease, Hx Irritable Bowel Musculoskeletal Medical History: Reports Hx Arthritis, Reports Hx Musculoskeletal Deformity Psychiatric Medical History: Reports: Hx Depression Traumatic Medical History: Reports: Hx Fractures Past Surgical History: Reports: Hx Appendectomy, Hx Cardiac Catheterization - stent x2, Hx Section - x2, Hx Whipple - laparotomy, Other - Incisional hernia repair with mesh 20 years ago. Denies: Hx Coronary Artery Bypass Graft, Hx Coronary Stent - Immunizations Immunizations up to date: Yes Hx Diphtheria, Pertussis, Tetanus Vaccination: Yes Review of Systems - Review of Systems Notes: Review HPI for review of systems., All other systems negative Physical Exam - Vital signs Vitals: Temp Pulse Resp BP Pulse Ox 98.0 F 104 H 22 H 148/100 H 98 02/07/19 03:05 02/07/19 03:05 02/07/19 03:05 02/07/19 03:05 02/07/19 03:05 Course - Vital Signs Vital signs: Temp Pulse Resp BP Pulse Ox 97.9 F 98 20 141/64 H 100 02/07/19 07:11 02/07/19 07:11 02/07/19 07:11 02/07/19 07:11 02/07/19 07:11 - Laboratory Result Diagrams: 02/07/19 03:45 02/07/19 03:45 Laboratory results interpreted by me: 02/07/19 02/07/19 03:45 04:25 Glucose 176 H Urine Protein 30 H Urine Urobilinogen 2.0 H
--- NOTE | 2019-02-07 08:56 | ER Document Report ---
Addendum entered and electronically signed by SOBIA STROUD FNP 02/07/19 22:00: Course - Re-evaluation Re-evalutation: 02/07/19 20:00 Report was given to me by CATHERINE Gambino. Will evaluate patient before transfer to [facility]. 02/07/19 21:59 [facility] is at bedside. I have assessed the patient. Her vital signs are stable. She is stable for transfer to [facility]. - Vital Signs Vital signs: Temp Pulse Resp BP Pulse Ox 98.1 F 85 22 H 165/93 H 99 02/07/19 19:35 02/07/19 16:12 02/07/19 21:27 02/07/19 21:27 02/07/19 21:27 - Laboratory Result Diagrams: 02/07/19 03:45 02/07/19 03:45 Laboratory results interpreted by me: 02/07/19 02/07/19 02/07/19 03:45 04:25 15:21 Glucose 176 H POC Glucose 137 H Urine Protein 30 H Urine Urobilinogen 2.0 H Original Note: ED General - General Chief Complaint: Abdominal Pain Stated Complaint: ABDOMINAL PAIN Time Seen by Provider: 02/07/19 07:10 Mode of Arrival: Ambulatory Information source: Patient Notes: Patient presents emergency department with complaints of abdominal pain for the past week. Patient reports she has been having a nagging pain to her left upper quad for the past week but in the past couple days her left lower quad started hurting. Patient has history of hernia repair when she had a in 1996. She reports that they placed mesh for the hernia. She reports it was doing good until couple years ago when she gained weight and now her intestines have slipped out from beneath the mesh to her left side. She reports that area is usually larger than the right lower quad but it is more distended and more tender than normal. She reports she has a history of diarrhea but this normal for her. She recently had cardiac surgery 2 stents placed and has chest pain that comes and goes but that is normal for her. She denies fever and vomiting but reports she does feel nauseated. Patient also has a history of diverticulitis. TRAVEL OUTSIDE OF THE [place] IN LAST 30 DAYS: No - HPI Onset: Other Onset/Duration: Persistent Quality of pain: Achy Severity: Severe Pain Level: 5 Associated symptoms: Nausea Exacerbated by: Movement Relieved by: Denies Similar symptoms previously: Yes Recently seen / treated by doctor: No - Related Data Allergies/Adverse Reactions: Penicillins Allergy (Severe, Verified 02/07/19 18:59) hives, anaphylaxias promethazine [From Phenergan] Allergy (Verified 02/07/19 18:59) promethazine HCl [From Phenergan] Allergy (Verified 02/07/19 18:59) tardive dyskensia tramadol Allergy (Verified 02/07/19 18:59) prochlorperazine edisylate [From Compazine] Adverse Reaction (Intermediate, Verified 02/07/19 18:59) tardive dyskensia IV dye Allergy (Uncoded 02/07/19 18:59) Past Medical History - General Information source: Patient Last Menstrual Period: 5-6 years - Social History Smoking Status: Never Smoker Chew tobacco use (# tins/day): No Frequency of alcohol use: None Drug Abuse: None Lives with: Family Family History: Reviewed & Not Pertinent Patient has suicidal ideation: No Patient has homicidal ideation: No - Past Medical History Cardiac Medical History: Reports: Hx Coronary Artery Disease, Hx Heart Attack, Hx Hypercholesterolemia, Hx Hypertension Pulmonary Medical History: Denies: Hx Tuberculosis Neurological Medical History: Denies: Hx Seizures Endocrine Medical History: Reports: Hx Diabetes Mellitus Type 2 - diet controlled Renal/ Medical History: Reports: Hx Ovarian Cysts. Denies: Hx Peritoneal Dialysis GI Medical History: Reports: Hx Gastroesophageal Reflux Disease, Hx Irritable Bowel Musculoskeletal Medical History: Reports Hx Arthritis, Reports Hx Musculoskeletal Deformity Psychiatric Medical History: Reports: Hx Depression Traumatic Medical History: Reports: Hx Fractures Past Surgical History: Reports: Hx Appendectomy, Hx Cardiac Catheterization - stent x2, Hx Section - x2, Hx Whipple - laparotomy, Other - Incisional hernia repair with mesh 20 years ago. Denies: Hx Coronary Artery Bypass Graft, Hx Coronary Stent - Immunizations Immunizations up to date: Yes Hx Diphtheria, Pertussis, Tetanus Vaccination: Yes Review of Systems - Review of Systems Notes: Review HPI for review of systems., All other systems negative Physical Exam - Vital signs Vitals: Temp Pulse Resp BP Pulse Ox 98.0 F 104 H 22 H 148/100 H 98 02/07/19 03:05 02/07/19 03:05 02/07/19 03:05 02/07/19 03:05 02/07/19 03:05 - Notes Notes: PHYSICAL EXAMINATION: GENERAL: non toxic looking, looks uncomfortable with movement HEAD: Atraumatic, normocephalic. EYES: Pupils equal round and reactive to light, extraocular movements intact, sclera anicteric, conjunctiva are normal. ENT: nares patent, oropharynx clear without exudates. Moist mucous membranes. NECK: Normal range of motion, supple without lymphadenopathy LUNGS: CTAB and equal. No wheezes rales or rhonchi. HEART: Regular rate and rhythm without murmurs ABDOMEN: Obese, left lower quad tender to palpation some firmness noted BACK: No complaints of pain EXTREMITIES: Normal range of motion, no pitting edema. No cyanosis. NEUROLOGICAL: Cranial nerves grossly intact. Normal sensory/motor exams. PSYCH: Normal mood, normal affect. SKIN: Warm, Dry, normal turgor, no rashes or lesions noted Course - Re-evaluation Re-evalutation: 02/07/19 11:00 Dr Rachel in the ED, talked with patient. Patient does not wish to have surgery here but wished to be transferred. He is concerned due to her cardiac history. I discussed this with patient. She said she has seen a provider that works at [facility] [employer] almost 3-4 years ago. She doesn't remember her name. She recently had cardiac surgery at [facility]. She request to go either to [facility] or [facility]. I contacted [facility] and spoke with a doctor estephania. At this time they do not have any beds. We discussed Brilinta and he reports patient would need to be off that for at least 5 days and started on heparin or Lovenox. I reviewed patient's past medical record and noted she was transferred to [facility] in July 2016 for same symptoms. [facility] contacted for a transfer. We discussed transfer. [facility] is also on a bed delay. They are closed to accepting patients for family or patient request. 02/07/19 [id number] At that time I contacted Dr. Rachel again. He came right over and discussed situation with patient. He reports that it is not an emergent surgery but khris hamptonarnold does need surgery. He reports that if she would like we will do a small bowel series with Gastrografin to assess the obstruction. He advised her that she would need to be off the brilinta least 5 days and placed on the Lovenox shots daily. That her's surgery would be scheduled at that time. Patient agrees. Waiting for small bowel series. 02/07/19 14:20 Return from attempting the small bowel series reports she became nauseated so they brought her back for nausea medicine. Patient reports she is really hurting a lot does not wish to go home requesting pain medication. Reports her chest/ her back / her neck are hurting. She reports this is how she has felt since she had her first DE several years ago. She reports this is not new symptoms 02/07/19 15:49 I contacted the radiologist regarding small bowel series. Reports he is still evaluating see if the Gastrografin goes through. patient is vomiting retching, reports increased pain. I contacted Dr. Rachel and updated him on her symptoms and progress with small bowel series. he reports she can be admitted through medicine with surgery consult. 02/07/19 16:28 Patient reports she is feeling better. Consulted Dr Phillips regarding patient care. She contacted Dr. Rachel for consult clarification. Cardiology Dr. Carrion consulted, updated on patient's status and past medical history. He reports he will be down to see the patient but feels like she is too high risk for patient to have surgery here. 02/07/19 16:56 patient is incontinent of stool PCT reports smells very strong like C. difficile cultures ordered. 02/07/19 17:26 Dr Carrion in the emergency department reviewed chart reports patient is too high risk for procedure here. As his heparin drip versus Lovenox. Elli called for update on patient. Instructed we are still waiting for a bed for the patient. Patient up graded due to high risk for surgery due to past DE recent stent placement. Dr. Cook called from [facility]. He was updated on patient's status patient past history he accepts patient. [facility] does have a bed, she will be going to [facility]. Patient instructed on all results. Jewell is now on the phone and they were updated that patient will be going to [facility] 02/07/19 19:04 sleeping peacefully, no distress, no bed assignment from [facility] yet. 02/07/19 19:15 [facility] called, patient bed assignment [place] [id number]- report to be called to [phone] 02/07/19 19:52 report given to sobia ALEXANDER. Pt updated on bed assignment. waiting for transfer - Vital Signs Vital signs: Temp Pulse Resp BP Pulse Ox 98.1 F 85 23 H 123/94 H 98 02/07/19 19:35 02/07/19 16:12 02/07/19 18:02 02/07/19 18:02 02/07/19 18:02 - Laboratory Result Diagrams: 02/07/19 03:45 02/07/19 03:45 Laboratory results interpreted by me: 02/07/19 02/07/19 02/07/19 03:45 04:25 15:21 Glucose 176 H POC Glucose 137 H Urine Protein 30 H Urine Urobilinogen 2.0 H - Diagnostic Test Radiology reviewed: Image reviewed, Reports reviewed - EXAM DESCRIPTION: CT ABD/PELVIS WITH IV ONLY COMPLETED DATE/TIME: 02/07/2019 9:07 am REASON FOR STUDY: abdominal pain COMPARISON: 04/18/2018 TECHNIQUE: CT scan of the abdomen and pelvis performed using helical scanning technique with dynamic intravenous contrast injection. No oral contrast. Images reviewed with lung, soft tissue, and bone windows. Reconstructed coronal and sagittal MPR images reviewed. Delayed images for evaluation of the urinary system also acquired. All images stored on PACS. All CT scanners at this facility use dose modulation, iterative reconstruction, and/or weight based dosing when appr opriate to reduce radiation dose to as low as reasonably achievable (ALARA). [facility]: Dose Right [facility]: CareDose [facility]: Dose Right [facility]: Teradose 4D [facility]: [employer]Media CONTRAST TYPE AND DOSE: contrast/concentration: Isovue 350.00 mg/ml; Total Contrast Delivered: 100.0 ml; Total Saline Delivered: 23.5 ml RENAL FUNCTION: BUN 15, creatinine 0.69 RADIATION DOSE: CT Rad equipment meets quality standard of care and radiation dose reduction techniques were employed. CTDIvol: 20.6 - 21.1 mGy. DLP: 2290 mGy-cm.. LIMITATIONS: None. FINDINGS: LOWER CHEST: There is a stable 5.7 mm nodule in the periphery of the left lower lobe. LIVER: There is decreased attenuation throughout the liver consistent with fatty infiltration. SPLEEN: Normal size. No focal lesions. PANCREAS: No masses. No significant calcifications. No adjacent inflammation or peripancreatic fluid collections. Pancreatic duct not dilated. GALLBLADDER: No identified stones by CT criteria. No inflammatory changes to suggest cholecystitis. ADRENAL GLANDS: No significant masses or asymmetry. RIGHT KIDNEY AND URETER: No solid masses. No significant calcifications. No hydronephrosis or hydroureter. LEFT KIDNEY AND URETER: No solid masses. No significant calcifications. No hydronephrosis or hydroureter. AORTA AND VE SSELS: No aneurysm. No dissection. Renal arteries, SMA, celiac without stenosis. RETROPERITONEUM: No retroperitoneal adenopathy, hemorrhage or masses. BOWEL AND PERITONEAL CAVITY: There are mildly dilated loops of small bowel with scattered air-fluid levels. Largest small bowel loop measures 3.6 cm. This is associated with the large left paracentral hernia which contains omental fat, colon and small bowel. There are inflammatory changes along the inferior margin of the hernia sac new from prior study. These changes along with a small bowel dilatation suggests at least partial small bowel obstruction. APPENDIX: Surgically absent. PELVIS: No mass. No free fluid. Normal bladder. ABDOMINAL WALL: As above. BONES: No significant or acute findings. OTHER: No other significant finding. IMPRESSION: Large left paracentral hernia containing large and small bowel. There are inflammatory changes in the inferior aspect of the hernia sac. There is small-bowel distention. Findings are suspicious for incarcerated hernia and at least partial small bowel obstruction. - EKG Interpretation by Me EKG shows normal: Sinus rhythm Rate: Normal When compared to previous EKG there are: No significant change Additional EKG results interpreted by me: 02/07/19 13:[address] elevation no T wave inversion 02/07/19 15:07 second ekg sr no st elevation no t wave inversion - Consults [facility] Time consulted: 09:37 Consulted provider: will come to ER Discharge - Discharge Clinical Impression: Abdominal pain, Partial small bowel obstruction, Incarcerated hernia Condition: Stable Disposition: [facility]
--- NOTE | 2019-02-07 09:30 | RADIOLOGY REPORT (SQ) ---
EXAM DESCRIPTION: CT ABD/PELVIS WITH IV ONLY COMPLETED DATE/TIME: 02/07/2019 9:07 am REASON FOR STUDY: abdominal pain COMPARISON: 04/18/2018 TECHNIQUE: CT scan of the abdomen and pelvis performed using helical scanning technique with dynamic intravenous contrast injection. No oral contrast. Images reviewed with lung, soft tissue, and bone windows. Reconstructed coronal and sagittal MPR images reviewed. Delayed images for evaluation of the urinary system also acquired. All images stored on PACS. All CT scanners at this facility use dose modulation, iterative reconstruction, and/or weight based d osing when appropriate to reduce radiation dose to as low as reasonably achievable (ALARA). [facility]: Dose Right [facility]: CareDose [facility]: Dose Right [facility]: Teradose 4D [facility]: [employer] CONTRAST TYPE AND DOSE: contrast/concentration: Isovue 350.00 mg/ml; Total Contrast Delivered: 100.0 ml; Total Saline Delivered: 23.5 ml RENAL FUNCTION: BUN 15, creatinine 0.69 RADIATION DOSE: CT Rad equipment meets quality standard of care and radiation dose reduction techniq ues were employed. CTDIvol: 20.6 - 21.1 mGy. DLP: 2290 mGy-cm.. LIMITATIONS: None. FINDINGS: LOWER CHEST: There is a stable 5.7 mm nodule in the periphery of the left lower lobe. LIVER: There is decreased attenuation throughout the liver consistent with fatty infiltration. SPLEEN: Normal size. No focal lesions. PANCREAS: No masses. No significant calcifications. No adjacent inflammation or peripancreatic fluid collections. Pancreatic duct not dilated. GALLBLADDER: No identified stones by CT criteria. No inflammatory changes to suggest cholecystitis. ADRENAL GLANDS: No significant masses or asymmetry. RIGHT KIDNEY AND URETER: No solid masses. No significant calcifications. No hydronephrosis or hyd roureter. LEFT KIDNEY AND URETER: No solid masses. No significant calcifications. No hydronephrosis or hydr oureter. AORTA AND VESSELS: No aneurysm. No dissection. Renal arteries, SMA, celiac without stenosis. RETROPERITONEUM: No retroperitoneal adenopathy, hemorrhage or masses. BOWEL AND PERITONEAL CAVITY: There are mildly dilated loops of small bowel with scattered air-fluid l evels. Largest small bowel loop measures 3.6 cm. This is associated with the large left paracentral hernia which contains omental fat, colon and small bowel. There are inflammatory changes along the inferior margin of the hernia sac new from prior study. These changes along with a small bowel dilat ation suggests at least partial small bowel obstruction. APPENDIX: Surgically absent. PELVIS: No mass. No free fluid. Normal bladder. ABDOMINAL WALL: As above. BONES: No significant or acute findings. OTHER: No other significant finding. IMPRESSION: Large left paracentral hernia containing large and small bowel. There are inflammatory changes in the inferior aspect of the hernia sac. There is small-bowel distention. Findings are malgorzata picious for incarcerated hernia and at least partial small bowel obstruction. TECHNICAL DOCUMENTATION: JOB ID: [id number] Quality ID # [id number]: Final reports with documentation of one or more dose reduction techniques (e.g., Au tomated exposure control, adjustment of the mA and/or kV according to patient size, use of iterative reconstruction technique) 2010 [employer]- All Rights Reserved Reading location - IP/workstation name: [email or web address]
--- NOTE | 2019-02-07 11:10 | PDOC CONSULTATION ---
Consultation Consult Date: 02/07/19 Provider Consulted: SONIA MCHUGH Consult reason:: incarcerated ventral hernia with small bowel obstruction History of Present Illness History of Present Illness: LESLEY MARIE is a 58 year old female Past Medical History Cardiac Medical History: Reports: Coronary Artery Disease, Myocardial Infarction, Hyperlipidema, Hypertension Pulmonary Medical History: Denies: Tuberculosis Neurological Medical History: Denies: Seizures Endocrine Medical History: Reports: Diabetes Mellitus Type 2 - diet controlled GI Medical History: Reports: Gastroesophageal Reflux Disease Musculoskeltal Medical History: Reports: Arthritis Psychiatric Medical History: Reports: Depression Past Surgical History Past Surgical History: Reports: Appendectomy, Cardiac Catheterization - stent x2, Section - x2, Other - Incisional hernia repair with mesh 20 years ago Denies: Coronary Artery Bypass Graft, Coronary Stent Social History Lives with: Family Smoking Status: Never Smoker Frequency of Alcohol Use: None Hx Recreational Drug Use: No Drugs: None Hx Prescription Drug Abuse: No Family History Family History: Reviewed & Not Pertinent Parental Family History Reviewed: No Children Family History Reviewed: NA Sibling(s) Family History Reviewed.: NA Medication/Allergy Home Medications: Atorvastatin Calcium [Lipitor 80 mg Tablet] 80 mg PO QHS 04/18/18 Carvedilol [Coreg 12.5 mg Tablet] 12.5 mg PO Q12 04/18/18 Fluoxetine HCl [Prozac 20 mg Capsule] 20 mg PO DAILY 04/18/18 Gabapentin Enacarbil [Horizant] 600 mg PO DAILY 04/18/18 Losartan/Hydrochlorothiazide [Hyzaar 50-12.5 Tablet] 1 tab PO DAILY 04/18/18 Pantoprazole Sodium [Protonix] 40 mg PO DAILY 04/18/18 Acetaminophen [Tylenol 325 mg Tablet] 650 mg PO Q4HP PRN tablet 04/20/18 Nitroglycerin [Nitrostat 0.4 mg (1/150 Gr) Tabs 25/Bottle] 1 tab SL Q5MP PRN bottle 04/20/18 Ranolazine [Ranexa 500 mg Tab.sr] 500 mg PO Q12 #60 tab.sr.12h 04/20/18 Aspirin [Adult Aspirin] 81 mg PO DAILY 08/06/18 Allergies/Adverse Reactions: Penicillins Allergy (Severe, Verified 01/12/19 21:14) hives, anaphylaxias promethazine [From Phenergan] Allergy (Verified 01/12/19 21:14) promethazine HCl [From Phenergan] Allergy (Verified 01/12/19 21:14) tardive dyskensia tramadol Allergy (Verified 01/12/19 21:14) prochlorperazine edisylate [From Compazine] Adverse Reaction (Intermediate, Ve rified 01/12/19 21:14) tardive dyskensia IV dye Allergy (Uncoded 01/12/19 21:14) Review of Systems Constitutional: PRESENT: anorexia Eyes: ABSENT: visual disturbances Ears: ABSENT: hearing changes Nose, Mouth, and Throat: ABSENT: as per HPI, headache(s), mouth pain, sore throat, vertigo, other Cardiovascular: PRESENT: other - recent coronary stent placments. Respiratory: ABSENT: as per HPI, cough, dyspnea, hemoptysis, sputum, other Gastrointestinal: PRESENT: abdominal pain, bloating, constipation, nausea Genitourinary: ABSENT: as per HPI, difficulty urinating, dysuria, hematuria, nocturia, other Musculoskeletal: ABSENT: as per HPI, back pain, deformity, joint swelling, muscle weakness, other Integumentary: ABSENT: as per HPI, diaphoresis, erythema, lesions, pruritus, rash, wounds, other Neurological: ABSENT: as per HPI, abnormal gait, abnormal movements, abnormal speech, confusion, convulsions, dizziness, focal weakness, frequent falls, lack of coordination, memory loss, numbness, paresthesias, restless legs, syncope, tingling, tremor(s), vertigo, weakness, other Psychiatric: ABSENT: as per HPI, anxiety, depression, hallucinations, homidical ideation, suicidal ideation, other Endocrine: ABSENT: as per HPI, cold intolerance, flushing, heat intolerance, menstrual abnormalities, polydipsia, polyphagia, polyuria, other Hematologic/Lymphatic: ABSENT: as per HPI, easy bleeding, easy bruising, lymphadenopathy, other Physical Exam Vital Signs: Temp Pulse Resp BP Pulse Ox 97.9 F 98 20 141/64 H 100 02/07/19 07:11 02/07/19 07:11 02/07/19 07:11 02/07/19 07:11 02/07/19 07:11 Intake & Output 02/06/19 02/07/19 02/08/19 06:59 06:59 06:59 Weight 124.2 kg General appearance: PRESENT: mild distress, morbidly obese Head exam: PRESENT: normocephalic Eye exam: PRESENT: EOMI Ear exam: PRESENT: normal external ear exam Mouth exam: PRESENT: moist Neck exam: PRESENT: full ROM Respiratory exam: PRESENT: clear to auscultation tyler Cardiovascular exam: PRESENT: RRR Pulses: PRESENT: normal radial pulses, normal femoral pulses Vascular exam: PRESENT: normal capillary refill GI/Abdominal exam: PRESENT: other - morbidly obese female with midline scar, large left lower quedrant incarcerated hernia, sl tender non reducible. Rectal exam: PRESENT: deferred Extremities exam: PRESENT: full ROM Musculoskeletal exam: PRESENT: full ROM Neurological exam: PRESENT: alert, awake, oriented to person, oriented to place Psychiatric exam: PRESENT: appropriate affect Skin exam: PRESENT: dry Results Laboratory Results: 02/07/19 03:45 02/07/19 03:45 02/07/19 02/07/19 02/07/19 03:45 03:45 04:25 WBC 9.7 RBC 5.02 Hgb 15.1 Hct 43.4 MCV 87 MCH 30.2 MCHC 34.9 RDW 13.8 Plt Count 257 Seg Neutrophils % 75.9 Lymphocytes % 14.3 Monocytes % 6.8 Eosinophils % 2.6 Basophils % 0.4 Absolute Neutrophils 7.3 Absolute Lymphocytes 1.4 Absolute Monocytes 0.7 Absolute Eosinophils 0.2 Absolute Basophils 0.0 Sodium 138.8 Potassium 4.6 Chloride 104 Carbon Dioxide 25 Anion Gap 10 BUN 15 Creatinine 0.69 Est GFR ( Amer) > 60 Est GFR (Non-Af Amer) > 60 Glucose 176 H Calcium 10.0 Total Bilirubin 0.7 AST 28 ALT 43 Alkaline Phosphatase 83 Total Protein 7.3 Albumin 4.2 Lipase 70.8 Urine Color YELLOW Urine Appearance TURBID Urine pH 5.0 Ur Specific [place] 1.031 Urine Protein 30 H Urine Glucose (UA) NEGATIVE Urine Ketones NEGATIVE Urine Blood NEGATIVE Urine Nitrite NEGATIVE Ur Leukocyte Esterase NEGATIVE Urine RBC (Auto) 9 Impressions: Abdomen/Pelvis CT 02/07/19 07:29 IMPRESSION: Large left paracentral hernia containing large and small bowel. There are inflammatory changes in the inferior aspect of the hernia sac. There is small-bowel distention. Findings are suspicious for incarcerated hernia and at least partial small bowel obstruction. Assessment & Plan - Plan Summary Plan Summary: morbidly obese female with previous ventral hernia repair 20 yrs ago, now the chronic recurrent ventral hernia with sbo- partial and increasing abd pain ct reviewed recommend surgical repair and release of incarcerated hernia recommended surgery to patient she requests transfer to another hospitial she does not feel comfortable having surgery here.
[2019-02-07] MEDS ORDERED: TICAGRELOR 90 MG TABLET PO ONE (12:10)
[2019-02-07] MEDS ORDERED: FENTANYL CITRATE INJ/PF 100 MCG/2 ML AMPUL ONE (14:17)
--- NOTE | 2019-02-07 16:27 | RADIOLOGY REPORT (SQ) ---
EXAM DESCRIPTION: SMALL BOWEL SERIES COMPLETED DATE/TIME: 02/07/2019 4:05 pm REASON FOR STUDY: abd pain eval bowel obstruct. COMPARISON: CT abdomen pelvis 04/18/2018 and 02/07/2019 FLUOROSCOPY TIME: 2 minutes 40 seconds of fluoroscopy was used. 18 images saved to PACS. LIMITATIONS: None. PROCEDURE: Initial plastics and composites inspector image of abdomen acquired, followed by administration of oral contrast. Se rial radiographic images acquired. Fluoroscopic images recorded of the terminal ileum and other leigha cated areas. All images stored on PACS. FINDINGS: PIECE DYER KUB: Non-obstructive bowel pattern. No abnormal calcifications. Soft tissue planes normal. Contrast is seen within the renal collecting system and bladder from CT earlier in the day. STOMACH: No significant reflux. Normal distention without abnormality. DUODENUM: Normal mucosal pattern with adequate distention. No displacement or obstruction. JEJUNUM: Normal mucosal pattern in the proximal jejunum. Slight dilatation of the distal jejunum. ILEUM: Dilatation of the ileum all which extends into the a left lower abdomen ventral hernia. Exiti ng loops of ileum from the ventral hernia are decompressed and normal in caliber. . TERMINAL ILEUM AND ILEO-CECAL VALVE: Incompletely visualize due to displacement by incarcerated bowel within a ventral hernia. PROXIMAL COLON: Incompletely imaged. Contrast is seen within the splenic flexure and descending colo n on 3 hour image. No abnormality. OTHER: No other significant finding. IMPRESSION: PARTIAL SMALL BOWEL OBSTRUCTION WITH TRANSITION POINT LOCATED WITHIN THE INCARCERATED LO OPS OF BOWEL WITHIN THE THE LEFT LOWER ABDOMINAL WALL VENTRAL HERNIA. COMMENT: Quality ID [id number]: Final reports for procedures using fluoroscopy that document radiation exp osure indices, or exposure time and number of fluorographic images (if radiation exposure indices are not available) TECHNICAL DOCUMENTATION: JOB ID: [id number] [employer]- All Rights Reserved Reading location - IP/workstation name: [email or web address] [id number]
[2019-02-07] MEDS ORDERED: LORAZEPAM INJ 2 MG/1 ML VIAL IV ONE (17:01)
[2019-02-07] MEDS ORDERED: HEPARIN SODIUM,PORCINE/D5W 25,000 UNIT/250 ML RTUINJ IV PRN (17:18)
[2019-02-07] MEDS ORDERED: HEPARIN SODIUM,PORCINE/D5W 25,000 UNIT/250 ML RTUINJ IV ONE (17:28)
--- NOTE | 2019-02-07 18:35 | EKG REPORT ---
SEVERITY:- ABNORMAL ECG - SINUS RHYTHM LEFT VENTRICULAR HYPERTROPHY PROBABLE INFERIOR INFARCT, AGE INDETERMINATE ANTEROLATERAL INFARCT, AGE INDETERMINATE : Confirmed by: Thaddeus Ramirez MD 07-Feb-2019 18:34:40
--- NOTE | 2019-02-07 18:36 | EKG REPORT ---
SEVERITY:- ABNORMAL ECG - SINUS RHYTHM LEFT VENTRICULAR HYPERTROPHY CONSIDER ANTERIOR INFARCT NONSPECIFIC T ABNORMALITIES, INFERIOR LEADS : Confirmed by: Thaddeus Ramirez MD 07-Feb-2019 18:35:05
[2019-02-07 19:23] LABS: INTERNATIONAL RATION (INR) 1.01; PROTHROMBIN TIME 13.8 SEC (11.4-15.4)
[2019-02-07 19:24] LABS: PARTIAL THROMBOPLASTIN TIME 26.4 SEC (23.5-35.8)
[2019-02-07 21:35] VITALS: BP 165/93
== END 2019-02-07 21:40 | disposition short-term general hospital (02) ==
LOC: ER 02:54
DX: K46.0 Unspecified abdominal hernia with obstruction, without gangrene (principal); R10.12 Left upper quadrant pain; R10.32 Left lower quadrant pain; R10.814 Left lower quadrant abdominal tenderness; R11.0 Nausea; R07.9 Chest pain, unspecified; M54.9 Dorsalgia, unspecified; M54.2 Cervicalgia; R15.9 Full incontinence of feces; I25.10 Atherosclerotic heart disease of native coronary artery without angina pectoris; I10 Essential (primary) hypertension; I25.2 Old myocardial infarction; E11.9 Type 2 diabetes mellitus without complications; K21.9 Gastro-esophageal reflux disease without esophagitis; E78.00 Pure hypercholesterolemia, unspecified; Z79.899 Other long term (current) drug therapy; Z79.82 Long term (current) use of aspirin; Z95.5 Presence of coronary angioplasty implant and graft; Z98.890 Other specified postprocedural states; Z87.19 Personal history of other diseases of the digestive system; Z87.892 Personal history of anaphylaxis; Z88.0 Allergy status to penicillin; Z88.8 Allergy status to other drugs, medicaments and biological substances; Z88.5 Allergy status to narcotic agent; Z91.041 Radiographic dye allergy status
CPT/HCPCS: 93005; 96376; 99285; 96361; 96375; 96365; 96366; 36415; 87045; 87205; 82962; 83690; 85025; 85610; 85730; 82272; 80053; 81001; 87493; 74250; 74177; 93010; J1644; J3010; J2060; J2405; J7030

== ENCOUNTER 2019-05-05 21:28 | Emergency (ER) | payer OTHER ==
--- NOTE | 2019-05-05 22:02 | ER Document Report ---
ED Medical Screen (RME) - General Chief Complaint: Abdominal Swelling Stated Complaint: ABDOMINAL PAIN Time Seen by Provider: 05/05/19 21:55 Mode of Arrival: Wheelchair Information source: Patient Notes: 58-year-old female with left abdominal pain. She states she has a history of when she is getting harder and more painful after he slipped out of this mesh. She states that they wanted to do a surgery on the hernia to repair it last time she was here because of drug-eluting stents were not 6 months old at that time and they recommended that she wait. She states she also wanted to wait until her BMI was below 45 at the time it was 50 now it is 47.8. She states that she was told last time that her hernia was incarcerated and that she needed to be watching for strangulation. She states she saw her gastroenterology surgery in [place] in March and next appointment is June 25. She states she has been telling her pickling drum operator and filament tester that she is not doing good with the pain she states she can barely eat without pain. She states she gets a lot of pain in the next when her abdomen hurts and the doctor told her that was referred pain from the hernia and to just take her nitro. She states she is having chest pain now. She states she feels like something is ripping in the middle of her abdomen and that is she has never had before. I have greeted and performed a rapid initial assessment of this patient. A comprehensive ED assessment and evaluation of the patient, analysis of test results and completion of medical decision making process will be conducted by an additional ED providers. TRAVEL OUTSIDE OF THE [place] IN LAST 30 DAYS: No - Related Data Allergies/Adverse Reactions: Penicillins Allergy (Severe, Verified 02/07/19 18:59) hives, anaphylaxias promethazine [From Phenergan] Allergy (Verified 02/07/19 18:59) promethazine HCl [From Phenergan] Allergy (Verified 02/07/19 18:59) tardive dyskensia tramadol Allergy (Verified 02/07/19 18:59) prochlorperazine edisylate [From Compazine] Adverse Reaction (Intermediate, Verified 02/07/19 18:59) tardive dyskensia IV dye Allergy (Uncoded 02/07/19 18:59) Past Medical History - Social History Family history: CAD, DM, Hyperlipidemia, Malignancy - Past Medical History Cardiac Medical History: Reports: Hx Coronary Artery Disease, Hx Heart Attack, Hx Hypercholesterolemia, Hx Hypertension Pulmonary Medical History: Denies: Hx Tuberculosis Neurological Medical History: Denies: Hx Seizures Endocrine Medical History: Reports: Hx Diabetes Mellitus Type 2 - diet controlled Renal/ Medical History: Reports: Hx Ovarian Cysts. Denies: Hx Peritoneal Dialysis GI Medical History: Reports: Hx Gastroesophageal Reflux Disease, Hx Irritable Bowel Musculoskeltal Medical History: Reports Hx Arthritis, Reports Hx Musculoskeletal Deformity Psychiatric Medical History: Reports: Hx Depression Traumatic Medical History: Reports: Hx Fractures Past Surgical History: Reports: Hx Appendectomy, Hx Cardiac Catheterization - stent x2, Hx Section - x2, Hx Whipple - laparotomy, Other - Incisional hernia repair with mesh 20 years ago. Denies: Hx Coronary Artery Bypass Graft, Hx Coronary Stent - Immunizations Immunizations up to date: Yes Hx Diphtheria, Pertussis, Tetanus Vaccination: Yes History of Influenza Vaccine for 05/2017 - 10/2017 Season: Refused Physical Exam - Vital signs Vitals: Temp Pulse Resp BP Pulse Ox 97.7 F 86 18 155/99 H 97 05/05/19 21:36 05/05/19 21:36 05/05/19 21:36 05/05/19 21:36 05/05/19 21:36 Course - Vital Signs Vital signs: Temp Pulse Resp BP Pulse Ox 97.7 F 86 18 155/99 H 97 05/05/19 21:36 05/05/19 21:36 05/05/19 21:36 05/05/19 21:36 05/05/19 21:36
[2019-05-05 22:47] LABS: ABSOLUTE EOSINOPHILS # (AUTO) 0.2 10^3/uL (0.0-0.6); ABSOLUTE LYMPHOCYTES (AUTO) 1.3 10^3/uL (0.5-4.7); ABSOLUTE MONOCYTES (AUTO) 0.7 10^3/uL (0.1-1.4); ABSOLUTE NEUT (AUTO) 6.5 10^3/uL (1.7-8.2); BASOPHILS % (AUTO) 0.4 % (0-2); EOSINOPHILS % (AUTO) 2.3 % (0-6); HEMATOCRIT 40.9 % (36.0-47.0); LYMPHOCYTES % (AUTO) 15.1 % (13-45); MEAN CORPUSCULAR HGB CONC 34.3 g/dL (32.0-36.0); MEAN CORPUSCULAR VOLUME 87 fl (80-97); MONOCYTES % (AUTO) 8.3 % (3-13); PLATELET COUNT 216 10^3/uL (150-450); RED BLOOD COUNT 4.68 10^6/uL (3.72-5.28); SEGMENTED NEUTROPHILS % (AUTO) 73.9 % (42-78); TOTAL CELLS COUNTED % (AUTO) 100 %; WHITE BLOOD COUNT 8.8 10^3/uL (4.0-10.5)
[2019-05-05 23:08] LABS: ALBUMIN 4.3 g/dL (3.5-5.0); ALKALINE PHOSPHATASE 71 U/L (38-126); ANION GAP 10 (5-19); ASPARTATE AMINO TRANSFERASE 38 U/L (14-36); BILIRUBIN,DIRECT 0.1 mg/dL (0.0-0.4); BILIRUBIN,TOTAL 0.7 mg/dL (0.2-1.3); BLOOD UREA NITROGEN 11 mg/dL (7-20); CALCIUM 9.8 mg/dL (8.4-10.2); CARBON DIOXIDE 24 mmol/L (22-30); CHLORIDE 105 mmol/L (98-107); CREATINE KINASE 170 U/L (30-135); GLUCOSE 119 mg/dL (75-110); POTASSIUM 3.9 mmol/L (3.6-5.0); TOTAL PROTEIN 7.1 g/dL (6.3-8.2)
--- NOTE | 2019-05-05 23:28 | RADIOLOGY REPORT (SQ) ---
EXAM DESCRIPTION: XR CHEST 2 VIEWS COMPLETED DATE/TME: 05/05/2019 22:03 CLINICAL HISTORY: 58 years Female, Chest pain COMPARISON:01/12/2019 NUMBER OF VIEWS/TECHNIQUE: 2, Frontal, Lateral FINDINGS: Adequate lung volume, clear parenchyma, normal cardiac silhouette, and intact bony thorax. IMPRESSION: No acute cardiopulmonary findings.
[2019-05-05] MEDS ORDERED: NORMAL SALINE 1000 ML 1,000 ML IV ONE (23:36)
[2019-05-05] MEDS ORDERED: FENTANYL CITRATE INJ/PF 100 MCG/2 ML AMPUL IV ONE (23:36)
[2019-05-05] MEDS ORDERED: ONDANSETRON HCL INJ/PF 4 MG/2 ML SDV IV ONE (23:36)
[2019-05-05 23:50] LABS: CREATINE KINASE MB 0.55 ng/mL (<4.55)
[2019-05-05 23:51] LABS: TROPONIN I < 0.012 ng/mL
--- NOTE | 2019-05-06 00:01 | ER Document Report ---
Entered by FLORIAN DESOUZA SCRIBE 05/05/19 [id number] Acting as scribe for:HAMZAH DE ANDA MD ED GI/ - General Chief Complaint: Abdominal Swelling Stated Complaint: ABDOMINAL PAIN Time Seen by Provider: 05/05/19 21:55 Primary Care Provider: DWIGHT,RADHA [Primary Care Provider] - Follow up as needed Mode of Arrival: Wheelchair Information source: Patient Notes: Patient is a 58 year old female that presents to the emergency department today with complaints of abdominal pain with associated vomiting. She states her abdominal hernia has become much larger, more painful and hard in the last few days. Patient has a known incision hernia repair with mesh over 20 years ago. She has herniated through that area in the left lower abdomen. She was seen here on 02/17/2019 with partial small bowel obstruction secondary to the small and large bowel contained in the hernia. She was transferred to [facility] where she was treated conservatively with NG suction. They decided to postpone doing surgery because of 2 drug-eluting coronary artery stents placed in December of 2018, and they want her to have had the stents for x6 months prior to stopping Br ilinta and operating on this hernia. Patient describes the pain as feeling like something is "tearing". The patient reports that she had passed a small amount of stool earlier today in the afternoon that was "a little ribbony". She does not know if she has passed any gas since that time. She is nauseous at this time and holding an emesis bag. TRAVEL OUTSIDE OF THE [place] IN LAST 30 DAYS: No - Related Data Allergies/Adverse Reactions: Penicillins Allergy (Severe, Verified 02/07/19 18:59) hives, anaphylaxias promethazine [From Phenergan] Allergy (Verified 02/07/19 18:59) promethazine HCl [From Phenergan] Allergy (Verified 02/07/19 18:59) tardive dyskensia tramadol Allergy (Verified 02/07/19 18:59) prochlorperazine edisylate [From Compazine] Adverse Reaction (Intermediate, Verified 02/07/19 18:59) tardive dyskensia IV dye Allergy (Uncoded 02/07/19 18:59) Past Medical History - General Information source: Patient - Social History Smoking Status: Never Smoker Cigarette use (# per day): No Frequency of alcohol use: None Drug Abuse: None Lives with: Family Family History: Reviewed & Not Pertinent Patient has suicidal ideation: No Patient has homicidal ideation: No - Past Medical History Cardiac Medical History: Reports: Hx Coronary Artery Disease, Hx Heart Attack, Hx Hypercholesterolemia, Hx Hypertension Endocrine Medical History: Reports: Hx Diabetes Mellitus Type 2 - metformin Renal/ Medical History: Reports: Hx Ovarian Cysts GI Medical History: Reports: Hx Gastroesophageal Reflux Disease, Hx Irritable B owel Musculoskeletal Medical History: Reports Hx Arthritis, Reports Hx Musc uloskeletal Deformity Psychiatric Medical History: Reports: Hx Depression Traumatic Medical History: Reports: Hx Fractures Past Surgical History: Reports: Hx Appendectomy, Hx Cardiac Catheterization - x2, Hx Section - x2, Hx Coronary Stent - x4, Other - Incisional hernia repair with mesh 20 years ago - Immunizations Immunizations up to date: Yes Hx Diphtheria, Pertussis, Tetanus Vaccination: Yes Review of Systems - Review of Systems Constitutional: No symptoms reported EENT: No symptoms reported Cardiovascular: No symptoms reported Respiratory: No symptoms reported Gastrointestinal: See HPI, Abdominal pain, Nausea. denies: Vomiting Genitourinary: No symptoms reported Female Genitourinary: No symptoms reported Musculoskeletal: No symptoms reported Skin: No symptoms reported Hematologic/Lymphatic: No symptoms reported Neurological/Psychological: No symptoms reported -: Yes All other systems reviewed and negative Physical Exam - Vital signs Vitals: Temp Pulse Resp BP Pulse Ox 97.7 F 86 18 155/99 H 97 05/05/19 21:36 05/05/19 21:36 05/05/19 21:36 05/05/19 21:36 05/05/19 21:36 - Notes Notes: Physical Exam: General: Alert, appears well. HEENT: Normocephalic. Atraumatic. PERRL. Extraocular movements intact. Oropharynx clear. Neck: Supple. Non-tender. Respiratory: No respiratory distress. Clear and equal breath sounds bilaterally. Cardiovascular: Regular rate and rhythm. Abdominal: Morbidly obese. Large firm bulging tender mass in the left lower q uadrant. No distension. Normal Bowel Sounds. Back: No gross abnormalities. Extremities: Moves all four extremities. Upper extremities: Normal inspection. Normal ROM. Lower extremities: Normal inspection. No edema. Normal ROM. Neurological: Normal cognition. AAOx4. Normal speech. Psychological: Normal affect. Normal Mood. Skin: Warm. Dry. Normal color. Course - Re-evaluation Re-evalutation: 05/06/19 01:09 The patient reported that she had a sudden increase in the pain in her left abdominal hernia mass, which caused her to become very nauseous and diaphoretic. She did denies any chest pain at all. She will get additional Zofran and will try morphine for her pain at this time. Hopefully, she can continue to drink the contrast. 05/06/19 04:[address] scan does show small bowel obstruction. The nurse put an NG tube in, however the patient pulled it out as soon as she got it down. She was quite anxious. She was given IV Ativan with another attempt to put the NG tube in. Nurse reports that she got the NG tube almost all the way down with the patient reached up injected out again. As she is on Brilinta, I do not think trying to forcefully place the tube again at this time is a good idea. We will let her relax for a while. We will repeat her lab work. The NG tube can be attempted again in another hour or so. - Vital Signs Vital signs: Temp Pulse Resp BP Pulse Ox 97.7 F 87 20 150/99 H 97 05/05/19 21:36 05/06/19 03:11 05/06/19 03:11 05/06/19 03:11 05/06/19 03:11 - Laboratory Result Diagrams: 05/05/19 22:15 05/05/19 22:15 Laboratory results interpreted by me: 05/05/19 05/06/19 22:15 01:03 Glucose 119 H POC Glucose 140 H AST 38 H Creatine Kinase 170 H - Diagnostic Test Radiology reviewed: Image reviewed, Reports reviewed - Small bowel obstruction - EKG Interpretation by Me EKG shows normal: Sinus rhythm, Donie, Intervals, ST-T Waves. abnormal: QRS Complexes - Old inferior NE Rate: Normal - 76 Rhythm: NSR Voltage: Consistant with LVH - Consults Dr. Hughes Time consulted: 03:40 Consulted provider: other - Requests the patient be sent to the ER. Transfer center called me back and stated Dr. Hooker in the ER would be the accepting physician. - Transfer of Care Care transferred to following provider: Dr. Rivera Notes: 05/06/19 04:08 The patient is pending transfer to [facility]. At this time there is no transportation available locally, and [facility] will not be available until after shift change sometime after 7 AM. She will need an NG tube attempted again at some point. She will probably need pain medication and anxiolytics prior to attempting to place the NG tube again. Critical Care Note - Critical Care Note Total time excluding time spent on procedures (mins): 40 Discharge - Discharge Clinical Impression: Incarcerated hernia of abdominal cavity, Small bowel obstruction Condition: Fair Disposition: [facility]: [facility]] - Follow up as needed Scribe Attestation: 05/06/19 00:30 I personally performed the services described in the documentation, reviewed and edited the documentation which was dictated to the scribe in my presence, and it accurately records my words and actions. I personally performed the services described in the documentation, reviewed and edited the documentation which was dictated to the scribe in my presence, and it accurately records my words and actions.
[2019-05-06] MEDS ORDERED: ONDANSETRON HCL INJ/PF 4 MG/2 ML SDV IV ONE ×3 (01:08→07:17)
[2019-05-06] MEDS ORDERED: MORPHINE SULFATE 10 MG/ML INJ IV ONE (01:08)
[2019-05-06] MEDS ORDERED: FENTANYL CITRATE INJ/PF 100 MCG/2 ML AMPUL IV ONE (02:54)
--- NOTE | 2019-05-06 03:33 | RADIOLOGY REPORT (SQ) ---
EXAM DESCRIPTION: CT ABDOMEN PELVIS WITHOUT IV CONTRAST COMPLETED DATE/TME: 05/06/2019 00:14 CLINICAL HISTORY: 58 years, Female, Large hard tender hernia LLQ, previous partial SBO COMPARISON: 02/07/2019 TECHNIQUE: Axial CT images of the abdomen and pelvis were obtained after the administration of oral contrast. No IV contrast was administered. Sagittal and coronal reformats were performed. DLP [id number]. Images stored on PACS. All CT scanners at this facility use dose modulation, iterative reconstruction, and/or weight based dosing when appropriate to reduce radiation dose to as low as reasonably achievable (ALARA). [facility]: Dose Right [facility]: CareDose [facility]: Dose Right [facility]: Teradose 4D [facility]: [employer] LIMITATIONS: None. FINDINGS: The lung bases are clear. Fatty liver. The gallbladder, pancreas, spleen, and adrenal glands appear unremarkable. Both kidneys appear unremarkable with no evidence of urolithiasis or hydronephrosis. There is no intraperitoneal free air. There is a mild amount of fluid around the hepatic tip. There is no lymphadenopathy. The stomach appears unremarkable. Again noted is a left paracentral ventral hernia containing the cecum and distal ileum with a small bowel obstruction with the small bowel measuring up to 3.8 cm in diameter. Again noted is mild stranding within the hernia sac with no fluid, pneumatosis, or portal venous gas identified. Diverticulosis is noted without evidence of diverticulitis. The uterus, adnexa, and urinary bladder are unremarkable. There are no lytic or blastic bone lesions. IMPRESSION: Left paracentral ventral hernia containing small bowel and colon causing a small bowel obstruction with mild worsening dilatation of the small bowel. Mild stranding within the hernia sac with no evidence of pneumatosis or portal venous gas. TECHNICAL DOCUMENTATION: Quality ID # [id number]: Final reports with documentation of one or more dose reduction techniques (e.g., Automated exposure control, adjustment of the mA and/or kV according to patient size, use of iterative reconstruction technique) copyright 2011 [employer]- All Rights Reserved
[2019-05-06] MEDS ORDERED: LORAZEPAM INJ 2 MG/1 ML VIAL IV ONE (03:52)
[2019-05-06] MEDS ORDERED: RINGERS SOLUTION,LACTATED 1,000 ML IV ONE ×2 (04:16→04:19)
[2019-05-06 04:54] LABS: ABSOLUTE LYMPHOCYTES (AUTO) 0.7 10^3/uL (0.5-4.7); ABSOLUTE MONOCYTES (AUTO) 0.6 10^3/uL (0.1-1.4); ABSOLUTE NEUT (AUTO) 11.2 10^3/uL (1.7-8.2); BASOPHILS % (AUTO) 0.2 % (0-2); EOSINOPHILS % (AUTO) 0.4 % (0-6); HEMATOCRIT 41.7 % (36.0-47.0); HEMOGLOBIN 14.2 g/dL (12.0-15.5); LYMPHOCYTES % (AUTO) 5.8 % (13-45); MEAN CORPUSCULAR HEMOGLOBIN 30.1 pg (27.0-33.4); MEAN CORPUSCULAR HGB CONC 34.1 g/dL (32.0-36.0); MEAN CORPUSCULAR VOLUME 88 fl (80-97); MONOCYTES % (AUTO) 4.8 % (3-13); PLATELET COUNT 212 10^3/uL (150-450); RED BLOOD COUNT 4.73 10^6/uL (3.72-5.28); RED CELL DISTRIBUTION WIDTH 13.8 % (11.5-14.0); SEGMENTED NEUTROPHILS % (AUTO) 88.8 % (42-78); TOTAL CELLS COUNTED % (AUTO) 100 %; WHITE BLOOD COUNT 12.6 10^3/uL (4.0-10.5)
[2019-05-06 05:16] LABS: ALBUMIN 4.1 g/dL (3.5-5.0); ALKALINE PHOSPHATASE 61 U/L (38-126); ANION GAP 11 (5-19); ASPARTATE AMINO TRANSFERASE 39 U/L (14-36); BILIRUBIN,DIRECT 0.1 mg/dL (0.0-0.4); BILIRUBIN,TOTAL 0.8 mg/dL (0.2-1.3); BLOOD UREA NITROGEN 11 mg/dL (7-20); CALCIUM 9.3 mg/dL (8.4-10.2); CARBON DIOXIDE 24 mmol/L (22-30); CHLORIDE 105 mmol/L (98-107); CREATINE KINASE 165 U/L (30-135); GLUCOSE 207 mg/dL (75-110)
[2019-05-06] MEDS ORDERED: HYDROMORPHONE HCL INJ/PF 2 MG/ML AMPULE IV ONE (07:17)
--- NOTE | 2019-05-06 08:14 | EKG REPORT ---
SEVERITY:- ABNORMAL ECG - SINUS RHYTHM LEFT VENTRICULAR HYPERTROPHY PROBABLE INFERIOR INFARCT, AGE INDETERMINATE : Confirmed by: Nasreen Klein MD 06-May-2019 08:14:14
[2019-05-06 08:19] VITALS: BP 164/98
--- NOTE | 2019-05-06 08:20 | ER Document Report ---
Doctor's Note Notes: 05/06/19 08:19 [facility] is here to see the patient. I went back and reassessed the patient. Patient was prescribed additional pain medicine. Abdomen is chip silo tender around the hernia sites but no rebound or guarding patient is stable for transfer.
[2019-05-06 08:39] LABS: APPEARANCE,URINE SLIGHTLY-CLOUDY; BILIRUBIN,URINE NEGATIVE (NEGATIVE); COLOR,URINE YELLOW; GLUCOSE, URINE 50 mg/dL (NEGATIVE); KETONES,URINE TRACE mg/dL (NEGATIVE); LEUKOCYTE ESTERASE,URINE NEGATIVE (NEGATIVE); NITRITE,URINE NEGATIVE (NEGATIVE); PROTEIN,URINE NEGATIVE (NEGATIVE); URINE SPECIFIC GRAVITY 1.023; UROBILINOGEN,URINE NEGATIVE mg/dL (<2.0)
== END 2019-05-06 08:29 | disposition short-term general hospital (02) ==
LOC: ER 21:28
DX: K43.9 Ventral hernia without obstruction or gangrene (principal); K56.609 Unspecified intestinal obstruction, unspecified as to partial versus complete obstruction; R10.9 Unspecified abdominal pain; R11.0 Nausea; R61 Generalized hyperhidrosis; I25.10 Atherosclerotic heart disease of native coronary artery without angina pectoris; E78.00 Pure hypercholesterolemia, unspecified; I10 Essential (primary) hypertension; E11.9 Type 2 diabetes mellitus without complications; Z88.0 Allergy status to penicillin; Z88.6 Allergy status to analgesic agent; I25.2 Old myocardial infarction
CPT/HCPCS: 93005; 36415; 82553; 82962; 82550; 83690; 85025; 80053; 81001; 84484; 83605; 71046; 74176; 93010; J3010; J2270; J1170; J2060; J2405; J7030; J7120

== ENCOUNTER 2019-05-16 06:14 | Emergency (ER) | payer OTHER ==
[2019-05-16] MEDS ORDERED: ONDANSETRON HCL INJ/PF 4 MG/2 ML SDV IV ONE (09:33)
--- NOTE | 2019-05-16 09:48 | ER Document Report ---
ED General - General Chief Complaint: Diarrhea Stated Complaint: DIARRHEA Time Seen by Provider: 05/16/19 09:34 Primary Care Provider: DWIGHT,RADHA [Primary Care Provider] - Follow up as needed TRAVEL OUTSIDE OF THE [place] IN LAST 30 DAYS: No - HPI Notes: Patient is a 58-year-old female with a history of recent hernia/SBO 10 days ago s/p repair at [facility] who presents complaining of nausea, vomiting, watery diarrhea that started 5 hours ago. Patient states that she has vomited 10 times, but nothing since 5 AM. Patient states that the diarrhea is what bothers her the most as it is very intense and constant with a foul smell. She has not noticed any melena or hematochezia. She is urinating normally. Patient states that she is still having some mid/lower abdominal pain more so on the left side since the surgery. Denies any headache, fever, URI, sore throat, chest pain, palpitations, syncope, cough, shortness of breath, wheeze, dyspnea, urinary retention, dysuria, hematuria, or rash. - Related Data Allergies/Adverse Reactions: Penicillins Allergy (Severe, Verified 02/07/19 18:59) hives, anaphylaxias promethazine [From Phenergan] Allergy (Verified 02/07/19 18:59) promethazine HCl [From Phenergan] Allergy (Verified 02/07/19 18:59) tardive dyskensia tramadol Allergy (Verified 02/07/19 18:59) prochlorperazine edisylate [From Compazine] Adverse Reaction (Intermediate, Verified 02/07/19 18:59) tardive dyskensia IV dye Adverse Reaction (Uncoded 05/16/19 11:39) Past Medical History - Social History Smoking Status: Unknown if Ever Smoked Family History: Reviewed & Not Pertinent Patient has suicidal ideation: No Patient has homicidal ideation: No - Past Medical History Cardiac Medical History: Reports: Hx Coronary Artery Disease, Hx Heart Attack, Hx Hypercholesterolemia, Hx Hypertension Pulmonary Medical History: Denies: Hx Tuberculosis Neurological Medical History: Denies: Hx Seizures Endocrine Medical History: Reports: Hx Diabetes Mellitus Type 2 - metformin Renal/ Medical History: Reports: Hx Ovarian Cysts. Denies: Hx Peritoneal Dialysis GI Medical History: Reports: Hx Gastroesophageal Reflux Disease, Hx Irritable Bowel Musculoskeletal Medical History: Reports Hx Arthritis, Reports Hx Musculoskeletal Deformity Psychiatric Medical History: Reports: Hx Depression Traumatic Medical History: Reports: Hx Fractures Past Surgical History: Reports: Hx Abdominal Surgery - Hernia repair, Hx Ap pendectomy, Hx Cardiac Catheterization - x2, Hx Section - x2, Hx Coronary Stent - x4, Hx Whipple - laparotomy, Other - Incisional hernia repair with mesh 20 years ago. Denies: Hx Coronary Artery Bypass Graft - Immunizations Immunizations up to date: Yes Hx Diphtheria, Pertussis, Tetanus Vaccination: Yes Review of Systems - Review of Systems -: Yes All other systems reviewed and negative Physical Exam - Vital signs Vitals: Temp Pulse Resp BP Pulse Ox 97.4 F 89 18 127/81 H 100 05/16/19 06:23 05/16/19 06:23 05/16/19 06:23 05/16/19 06:23 05/16/19 06:23 - Notes Notes: PHYSICAL EXAMINATION: GENERAL: Well-appearing, well-nourished and in no acute distress. HEAD: Atraumatic, normocephalic. EYES: Pupils equal round and reactive to light, extraocular movements intact, sclera anicteric, conjunctiva are normal. ENT: Nares patent and without discharge. oropharynx clear without exudates. No tonsilar hypertrophy or erythema. Moist mucous membranes. NECK: Normal range of motion, supple without lymphadenopathy LUNGS: Breath sounds clear to auscultation bilaterally and equal. No wheezes rales or rhonchi. HEART: Regular rate and rhythm without murmurs, rubs, gallops. ABDOMEN: Soft, nondistended abdomen. No guarding, no rebound. Normal bowel sounds present. No CVA tenderness bilaterally. [facility] in place without significant erythema or warmth. No purulence noted. + tenderness left lower and lower mid abd. Musculoskeletal: FROM to passive/active. Strength 5+/5. Extremities: No cyanosis, clubbing, or edema b/l. Peripheral pulses 2+. Capillary refill less than 3 seconds. NEUROLOGICAL: Cranial nerves grossly intact. Normal speech, normal gait. PSYCH: Normal mood, normal affect. SKIN: Warm, Dry, normal turgor, no rashes or lesions noted. Course - Re-evaluation Re-evalutation: 05/16/19 15:01 Patient is an afebrile, well-hydrated, 58-year-old female who presents with suspected viral gastroenteritis. Vitals are acceptable without significant tachycardia, tachypnea, or hypoxia. PE is otherwise unremarkable. Patient's abdomen is currently soft and nontender. She is nontoxic-appearing and is tolerating p.o. without difficulty. Patient states that she is feeling better than she was. She did receive fluids and medications. C. difficile negative. Labs acceptable and imaging unremarkable. No further work-up warranted. Low suspicion/risk for acute appendicitis, bowel obstruction, acute cholecystitis, acute cholangitis, perforated diverticulitis, incarcerated hernia, pancreatitis, perforated ulcer, peritonitis, sepsis, pelvic inflammatory disease, ectopic , tubo-ovarian abscess, ovarian torsion, or other systemic emergent condition at this time. Patient is aware that her condition can change from initial presentation and she needs to monitor symptoms closely and seek medical attention if any acute changes. Conservative measures otherwise for symptoms. Recheck with your PCM in 2-3 days. Consider consult with a institutional nutrition consultant. Return to the ED with any worsening/concerning symptoms otherwise as reviewed in discharge. Patient is in agreement. - Vital Signs Vital signs: Temp Pulse Resp BP Pulse Ox 98.5 F 100 18 138/99 H 100 05/16/19 11:54 05/16/19 11:54 05/16/19 06:23 05/16/19 11:54 05/16/19 11:54 - Laboratory Result Diagrams: 05/16/19 09:52 05/16/19 10:49 Laboratory results interpreted by me: 05/16/19 05/16/19 09:52 10:49 WBC 13.6 H Lymph % (Auto) 5.7 L Absolute Neuts (auto) 11.8 H Seg Neutrophils % 86.6 H Potassium 3.3 L Glucose 121 H AST 71 H Total Protein 5.9 L Albumin 3.4 L Lipase 536.9 H Discharge - Discharge Clinical Impression: Acute gastroenteritis Condition: Stable Disposition: HOME, SELF-CARE Instructions: Gastroenteritis (adult) ([facility]) Additional Instructions: Maintain adequate fluid and food intake [place] diet ([employer] Bananas, rice, apples, toast, etc Zofran as needed tylenol if needed Monitor for any worsening symptoms Make sure you are staying hydrated enough to urinate and have normal BM's Recheck with your PCM in 2-3 days Consider consult with Gastroenterology for ongoing/worsening symptoms Return to the ED with any worsening symptoms and/or development of fever, headache, chest pain, palpitations, syncope, shortness of breath, trouble breathing, abdominal pain, n/v/d, blood in stool/urine, weakness, or other worsening symptoms that are concerning to you. Prescriptions: Ondansetron [Zofran Odt 4 mg Tablet] 1 - 2 tab PO Q4H PRN #15 tab.rapdis PRN Reason: For Nausea/Vomiting Forms: Elevated Blood Pressure [facility]errals: [facility] [[facility] Provider] - 05/19/19 BLAIR TUBBS MD [ACTIVE STAFF] - Follow up as needed
[2019-05-16 09:57] LABS: ABSOLUTE EOSINOPHILS # (AUTO) 0.1 10^3/uL (0.0-0.6); ABSOLUTE LYMPHOCYTES (AUTO) 0.8 10^3/uL (0.5-4.7); ABSOLUTE MONOCYTES (AUTO) 0.9 10^3/uL (0.1-1.4); ABSOLUTE NEUT (AUTO) 11.8 10^3/uL (1.7-8.2); BASOPHILS % (AUTO) 0.2 % (0-2); EOSINOPHILS % (AUTO) 0.9 % (0-6); HEMATOCRIT 36.5 % (36.0-47.0); HEMOGLOBIN 12.4 g/dL (12.0-15.5); LYMPHOCYTES % (AUTO) 5.7 % (13-45); MEAN CORPUSCULAR HEMOGLOBIN 30.1 pg (27.0-33.4); MEAN CORPUSCULAR VOLUME 88 fl (80-97); MONOCYTES % (AUTO) 6.6 % (3-13); RED BLOOD COUNT 4.14 10^6/uL (3.72-5.28); RED CELL DISTRIBUTION WIDTH 13.9 % (11.5-14.0); SEGMENTED NEUTROPHILS % (AUTO) 86.6 % (42-78); TOTAL CELLS COUNTED % (AUTO) 100 %; WHITE BLOOD COUNT 13.6 10^3/uL (4.0-10.5)
[2019-05-16 10:24] LABS: PLATELET COUNT 349 10^3/uL (150-450)
[2019-05-16 11:17] LABS: ALBUMIN 3.4 g/dL (3.5-5.0); ALKALINE PHOSPHATASE 57 U/L (38-126); ANION GAP 10 (5-19); ASPARTATE AMINO TRANSFERASE 71 U/L (14-36); BILIRUBIN,DIRECT 0.2 mg/dL (0.0-0.4); BLOOD UREA NITROGEN 7 mg/dL (7-20); CARBON DIOXIDE 27 mmol/L (22-30); CHLORIDE 101 mmol/L (98-107); GLUCOSE 121 mg/dL (75-110); POTASSIUM 3.3 mmol/L (3.6-5.0); TOTAL PROTEIN 5.9 g/dL (6.3-8.2)
[2019-05-16] MEDS ORDERED: POTASSIUM CHLORIDE 10 MEQ CAPSULE.ER PO ONE (11:33)
[2019-05-16] MEDS ORDERED: NORMAL SALINE 1000 ML 1,000 ML IV PRN (11:35)
[2019-05-16] MEDS ORDERED: DIPHENHYDRAMINE HCL 50 MG/ML VIAL IV ONE (11:40)
--- NOTE | 2019-05-16 12:49 | RADIOLOGY REPORT (SQ) ---
EXAM DESCRIPTION: CT ABD/PELVIS WITH IV ONLY COMPLETED DATE/TIME: 05/16/2019 12:32 pm REASON FOR STUDY: abd pain, recent hernia repair COMPARISON: 05/06/2019 TECHNIQUE: CT scan of the abdomen and pelvis performed using helical scanning technique with dynamic intravenous contrast injection. No oral contrast. Images reviewed with lung, soft tissue, and bone windows. Reconstructed coronal and sagittal MPR images reviewed. Delayed images for evaluation of the urinary system also acquired. All images stored on PACS. All CT scanners at this facility use dose modulation, iterative reconstruction, and/or weight based d osing when appropriate to reduce radiation dose to as low as reasonably achievable (ALARA). [facility]: Dose Right [facility]: CareDose [facility]: Dose Right [facility]: Teradose 4D [facility]: [email or web address] CONTRAST TYPE AND DOSE: contrast/concentration: Isovue 350.00 mg/ml; Total Contrast Delivered: 100.0 ml; Total Saline Delivered: 67.0 ml RENAL FUNCTION: BUN 7; creatinine 0.70 RADIATION DOSE: CT Rad equipment meets quality standard of care and radiation dose reduction techniq ues were employed. CTDIvol: 21.0 - 21.1 mGy. DLP: 2391 mGy-cm.. LIMITATIONS: None. FINDINGS: LOWER CHEST: No significant findings. No nodules or infiltrates. LIVER: Hepatic steatosis. No focal mass or dilated ducts. SPLEEN: Normal size. No focal lesions. PANCREAS: No masses. No significant calcifications. No adjacent inflammation or peripancreatic fluid collections. Pancreatic duct not dilated. GALLBLADDER: Hydropic. No identified stones by CT criteria. No inflammatory changes to suggest diane cystitis. ADRENAL GLANDS: No significant masses or asymmetry. RIGHT KIDNEY AND URETER: No solid masses. No significant calcifications. No hydronephrosis or hyd roureter. LEFT KIDNEY AND URETER: No solid masses. No significant calcifications. No hydronephrosis or hydr oureter. AORTA AND VESSELS: No aneurysm. No dissection. Renal arteries, SMA, celiac without stenosis. RETROPERITONEUM: No retroperitoneal adenopathy, hemorrhage or masses. BOWEL AND PERITONEAL CAVITY: Postsurgical changes of the ventral abdomen with associated mesenteric f at stranding. No focal fluid collection is demonstrated. The bowel appears grossly unremarkable. APPENDIX: Surgically absent. PELVIS: No mass. No free fluid. Normal bladder. ABDOMINAL WALL: Postsurgical changes consistent with ventral herniorrhaphy. The left rectus abdominu s musculature appears expanded ; no definite fluid collection is visualized there is no discrete evid ence of abscess. Few small ill-defined collections are seen within the subcutaneous fat, possibly on the basis of small seromas or resolving hematomas. No evidence of fascial discontinuity. BONES: No significant or acute findings. OTHER: No other significant finding. IMPRESSION: Status post ventral herniorrhaphy with out discrete evidence of surgical complication, a bscess, dehiscence. The left rectus abdominis musculature appears expanded ; this is of uncertain et iology or significance. TECHNICAL DOCUMENTATION: JOB ID: [id number] Quality ID # [id number]: Final reports with documentation of one or more dose reduction techniques (e.g., Au tomated exposure control, adjustment of the mA and/or kV according to patient size, use of iterative reconstruction technique) 2010 [employer]- All Rights Reserved Reading location - IP/workstation name: [email or web address]
[2019-05-16 14:31] LABS: C DIFFICILE GDH NEGATIVE (NEGATIVE)
[2019-05-16] MEDS ORDERED: LOPERAMIDE HCL 2 MG CAPSULE PO ONE (15:55)
[2019-05-16 16:13] VITALS: BP 144/87
== END 2019-05-16 16:40 | disposition home or self-care (01) ==
LOC: ER 06:14
DX: K52.9 Noninfective gastroenteritis and colitis, unspecified (principal); R11.2 Nausea with vomiting, unspecified; I25.10 Atherosclerotic heart disease of native coronary artery without angina pectoris; I25.2 Old myocardial infarction; I10 Essential (primary) hypertension; E11.9 Type 2 diabetes mellitus without complications; Z79.84 Long term (current) use of oral hypoglycemic drugs
CPT/HCPCS: 99284; 96361; 96374; 96375; 36415; 83690; 85025; 80053; 87324; 87449; 74177; J1200; J2405; J7030

== ENCOUNTER → 2019-05-27 | Outpatient (CLI) | payer OTHER ==
--- NOTE | 2019-05-27 10:40 | RADIOLOGY REPORT (SQ) ---
EXAM DESCRIPTION: CT ABD/PELVIS NO ORAL OR IV COMPLETED DATE/TIME: 05/27/2019 9:37 am REASON FOR STUDY: CELLULITIS OF ABDOMINAL WALL L03.311 CELLULITIS OF ABDOMINAL WALL COMPARISON: CT of the abdomen and pelvis from 05/06/2019 TECHNIQUE: CT scan of the abdomen and pelvis performed without intravenous or oral contrast. Images reviewed with lung, soft tissue, and bone windows. Reconstructed coronal and sagittal MPR images revi ewed. All images stored on PACS. All CT scanners at this facility use dose modulation, iterative reconstruction, and/or weight based d osing when appropriate to reduce radiation dose to as low as reasonably achievable (ALARA). [facility]: Dose Right [facility]: CareDose [facility]: Dose Right [facility]: Teradose 4D [facility]: [employer] RADIATION DOSE: CT Rad equipment meets quality standard of care and radiation dose reduction techniq ues were employed. CTDIvol: 31.0 mGy. DLP: 1731 mGy-cm.mGy. LIMITATIONS: None. FINDINGS: LOWER CHEST: Stable 3 mm right middle lobe nodule (image 1 of 29). There is no basilar co nsolidation, pleural effusion or pneumothorax. There is no cardiomegaly or pericardial effusion. NON-CONTRASTED LIVER, SPLEEN, ADRENALS: Evaluation is limited due to the absence of intravenous contr ast. The liver morphology is non cirrhotic. There is no CT evidence of hepatic steatosis. The sple en is normal in size. There is no abnormality of the adrenal glands. PANCREAS: No abnormality of the pancreas. GALLBLADDER: No abnormality that is apparent on CT. RIGHT KIDNEY AND URETER: Evaluation is limited due to the absence of intravenous contrast. There is no hydronephrosis, nephrolithiasis, hydroureter or ureterolithiasis. LEFT KIDNEY AND URETER: Evaluation is limited due to the absence of intravenous contrast. There is n o hydronephrosis, nephrolithiasis, hydroureter or ureterolithiasis AORTA AND RETROPERITONEUM: No aneurysmal dilatation of the abdominal aorta or retroperitoneal adenopa thy BOWEL AND PERITONEAL CAVITY: Colonic diverticulosis without other ancillary findings to suggest an ac [place] diverticulitis. There is no evidence of bowel obstruction, bowel wall thickening, or pericolonic / perienteric inflammation. The patient is status post repair of a ventral hernia ; the stranding in the omentum is unchanged from 05/16/2019. The skin thickening and stranding of the percutaneous fat on the left-side of the ventral abdomen are also unchanged. There are 2 ill-defined areas of lobulat ion in the subcutaneous tissues of ventral aspect of the left abdomen that could represent developing postoperative collections ; the medial lobulation measures up to 5.3 cm in AP diameter and 2.6 cm in transverse diameter and the lateral lobulation measures up to 3.7 x 1.5 cm diameter. The asymmetry in size between the right and left rectus abdominis persists but compared to 05/16/2019 the AP diameter of the left rectus abdominus is decreased and it measures up to 3 cm compared to 3.5 cm. APPENDIX: Normal. PELVIS, BLADDER, AND ABDOMINAL WALL:The urinary bladder is contracted. There is no pelvic adenopathy , mass or free fluid. BONES: No acute findings. OTHER: No other finding. IMPRESSION: Status post left ventral herniorrhaphy. There are 2 ill-defined areas of lobulation in the ventral aspect of the left abdomen that could represent developing postoperative subcutaneous col lections ; the medial lobulation measures up to 5.3 cm in AP diameter and 2.6 cm in transverse diamet er and the lateral lobulation measures up to 3.7 x 1.5 cm. A follow-up contrast-enhanced CT or ultra sound could be obtained for further evaluation. The asymmetry in size between the right and left rectus abdominis persists but compared to 05/16/2019 the AP diameter of the left rectus abdominus is decreased and it measures up to 3 cm compared to 3.5 cm. COMMENT: Quality ID # [id number]: Final reports with documentation of one or more dose reduction techniques (e.g., Automated exposure control, adjustment of the mA and/or kV according to patient size, use of iterative reconstruction technique) TECHNICAL DOCUMENTATION: JOB ID: [id number] [employer]- All Rights Reserved Reading location - IP/workstation name: [email or web address]
== END ==
LOC: RAD 07:54
PROVIDERS: ATTEND Nurse Practitioner Adult Health
DX: L03.311 Cellulitis of abdominal wall (principal)
CPT/HCPCS: 74176